=== PATIENT | male | born 1965 | race Caucasian/White ===

== ENCOUNTER 2024-01-13 20:13 | Inpatient (IN) ==
--- NOTE | 2024-01-13 21:13 | Emergency Department Note ---
Impression & Plan Lower gastrointestinal hemorrhage ADMIT ED Provider Note HPI: History obtained from patient. The patient is a 58-year-old gentleman who presents emergency department with chief complaint of GI bleeding. Patient states that he developed some GI bleeding at about 430 this morning. He states that it seemed to be persistent throughout most of the day and then seem to resolve about 4 hours prior to arrival. Patient states he felt generally weak and fatigued and at times felt dizzy and therefore he came to the ER to be assessed. Prior to my assessment the patient had a syncopal event in triage and therefore was brought back emergently to room B12 and marked as a priority. On my assessment the patient is again alert, he is hemodynamically stable on my initial evaluation although somewhat drowsy appearing. Patient is noted to be saturating well on room air, heart rate is within normal limits. Patient denies being on any anticoagulation. Of note, patient had a colonoscopy with polypectomy performed several weeks ago at this facility. ROS: - Per HPI Differential Diagnosis: Lower GI bleed secondary to internal or external hemorrhoids, lower GI bleed secondary to hemorrhagic biopsy site, ischemic colitis, perforated viscus, syncope secondary to arrhythmia, vasovagal event, acute coronary syndrome, amongst other potential pathologies. *Outpatient medications and allergy history reviewed. PE: General: Alert HEENT: Normocephalic, trachea midline Eyes: Extraocular eye movement is intact, no scleral erythema Pulmonary: Clear to auscultation bilaterally, no wheezing Cardio: Regular rate and rhythm GI: Abdomen is soft to palpation, rectal examination per shows evidence of external hemorrhoids with no obvious active bleeding, small amount of blood is surrounding the anus : No suprapubic tenderness MSK: No evidence of trauma or malformation of the extremities, no edema Skin: No evidence of rash Neuro: Alert, no focal deficits, equal bilateral sales and marketing professional strength, symmetrical facial movements are appreciated Psychiatric: Cooperative INDEPENDENT INTERPRETATIONS: residential monitor: (As interpreted by myself): - An order was placed for continuous cardiac monitoring - Patient was noted to be in sinus rhythm with a rate of 62 EKG: (As interpreted by myself): Rate: 62 Rhythm: Normal sinus rhythm Intervals: Within normal limits ST changes: No ST elevation Time: 2052 Interventions provided in ED: -IV fluid bolus, packed red blood cell transfusion Medical Decision Making: IV was established and lab work obtained, patient was placed on playground monitor. Lab work shows no leukocytosis, hemoglobin is 7.5 (patient states history of anemia around this range) platelet count is slightly reduced at 118, CMP shows BUN of 53 and creatinine of 3.35, patient also notes a history of chronic kidney disease and believes his creatinine is normally around this range as well. Glucose is elevated at 248, bilirubin is normal, there is no transaminitis, troponin is negative x 1. EKG per my interpretation shows normal sinus rhythm without any acute ischemic changes. CT imaging of the abdomen pelvis without contrast was obtained that shows evidence of fluid-filled colon and possible cystitis. Patient denies any recent dysuria, will send for UA. Rectal examination does show external hemorrhoids with a small amount of blood around the anus. Given the patient's syncopal event in triage and generalized dizziness with unclear baseline hemoglobin he was ordered packed red blood cells for transfusion here in the ED. I discussed the patient's presentation with on-call gastroenterology, Dr. Conteh, he is in agreement for consultation and will see the patient tomorrow morning given his hemodynamic stability at this time. Case was also discussed with the on-call hospitalist, Dr. Charles, and the patient was placed for admission in stable condition. Patient's blood pressure prior to admission is 120/72 and heart rate remains within normal limits. Patient was in agreement to this plan. Consultants/Discussions held with other healthcare providers: -Gastroenterology, Dr. Conteh -Hospitalist, Dr. Charles Disposition discussion held by myself with: -Patient and patient's at the bedside Diagnosis: 1. Lower GI bleed, acute 2. Syncopal event, acute 3. Chronic kidney disease 4. Anemia, unknown chronicity Disposition: Admission Anil Pagan DO Emergency Medicine Past Med/Surg History Problem List (Updated 01/14/24 @ 01:06 by Anil Pagan DO) Lower gastrointestinal hemorrhage (Acute) Colon cancer screening Medical History (Updated 01/14/24 @ 01:06 by Anil Pagan DO) History of blood transfusion (10/2023) early 10/2023 - low blood count/? details. Received blood transfusion. History of decreased renal function approx 10/2023 - reaction to ozempic. Resolved. History of COVID-19 (2021) Neuropathy HTN (hypertension) Hyperlipidemia Rosacea Acid reflux Type 2 diabetes mellitus Surgical History (Updated 12/23/23 @ 11:19 by Phill Parish RN) [place] teeth removed hx Social History Smoking Status: Never smoker Do You Dip or Chew Tobacco: No; Hx Substance Use: No Preferred Language: Portuguese Communication Ability: Effective County Agent Required: No Beliefs That Will Affect Care: None and Mandaeism Mandaeism Beliefs: Judaism Current Living Situation: Spouse Feels Safe at Home: Yes Assistive Devices: Glasses Allergies Allergies Allergy/AdvReac Type Severity Reaction Status Date / Time duloxetine AdvReac Intermediate SHAKES ALL Verified 01/13/24 22:50 OVER/DIZZINESS semaglutide [From Ozempic] AdvReac Unknown decreased Verified 01/13/24 22:50 kidney function Home Meds Home Medications Medication Instructions Recorded Confirmed aspirin 81 mg tablet,delayed 81 mg PO DAILY 12/23/23 01/13/24 release atenolol 50 mg tablet 50 mg PO QAM 12/23/23 01/13/24 empagliflozin 12.5 mg-metformin 1 tab PO BID 12/23/23 01/13/24 1,000 mg tablet losartan 50 mg-hydrochlorothiazide 1 tab PO QAM 12/23/23 01/13/24 12.5 mg tablet magnesium oxide 420 mg tablet 420 mg PO BID 12/23/23 01/13/24 minocycline 100 mg tablet 100 mg PO QAM 12/23/23 01/13/24 omeprazole 20 mg tablet,delayed 20 mg PO QAM 12/23/23 01/13/24 release rosuvastatin 40 mg tablet 40 mg PO QAM 12/23/23 01/13/24 gabapentin 300 mg capsule 300 mg PO TID 01/13/24 01/13/24 multivitamin 1 tab PO DAILY 01/13/24 01/13/24 omega 9-iuv-qit-fish oil 1,200 mg 1 cap PO QAM 01/13/24 01/13/24 (144 mg-216 mg) capsule (Fish Oil) Results & Data (ED) Vital Signs Vital Signs - 24 hr 01/13/24 20:21 01/13/24 21:09 01/13/24 21:15 Temperature 37 C Temperature Source Temporal Artery Scan Pulse Rate 67 61 61 Pulse Rate from SpO2 Sensor 63 Pulse Rhythm Regular Pulse Strength Normal Respiratory Rate 18 20 Respiratory Effort / Characteristics Non-Labored Spontaneous Respiratory Depth Normal Respiratory Pattern Regular Blood Pressure 99/62 L 104/58 L Blood Pressure Mean 74 73 Blood Pressure Position Sitting Pulse Oximetry 100 100 Oxygen Delivery Method Room Air Room Air Sepsis Recent Fever Within 48 Hours No Sepsis New/Unexplained Change in Mental Status N/A Sepsis Action Taken by Nursing No Action Required 01/13/24 21:30 01/13/24 21:48 01/13/24 22:00 Temperature Temperature Source Pulse Rate 61 66 70 Pulse Rate from SpO2 Sensor 61 65 69 Pulse Rhythm Pulse Strength Respiratory Rate 20 19 20 Respiratory Effort / Characteristics Respiratory Depth Respiratory Pattern Blood Pressure 116/62 119/74 110/60 Blood Pressure Mean 91 89 76 Blood Pressure Position Pulse Oximetry 100 100 100 Oxygen Delivery Method Room Air Room Air Room Air Sepsis Recent Fever Within 48 Hours Sepsis New/Unexplained Change in Mental Status Sepsis Action Taken by Nursing 01/13/24 22:03 01/13/24 22:40 01/13/24 22:40 Temperature 36.7 C Temperature Source Oral Pulse Rate 64 65 64 Pulse Rate from SpO2 Sensor 64 Pulse Rhythm Pulse Strength Respiratory Rate 21 18 18 Respiratory Effort / Characteristics Respiratory Depth Respiratory Pattern Blood Pressure 110/60 136/70 122/66 Blood Pressure Mean 76 92 84 Blood Pressure Position Pulse Oximetry 100 100 100 Oxygen Delivery Method Room Air Sepsis Recent Fever Within 48 Hours Sepsis New/Unexplained Change in Mental Status Sepsis Action Taken by Nursing 01/13/24 22:45 01/13/24 22:55 01/13/24 22:56 Temperature 37 C Temperature Source Oral Pulse Rate 63 65 Pulse Rate from SpO2 Sensor 64 Pulse Rhythm Pulse Strength Respiratory Rate 19 19 Respiratory Effort / Characteristics Respiratory Depth Respiratory Pattern Blood Pressure 122/66 127/71 127/71 Blood Pressure Mean 84 89 93 Blood Pressure Position Pulse Oximetry 100 100 Oxygen Delivery Method Room Air Sepsis Recent Fever Within 48 Hours Sepsis New/Unexplained Change in Mental Status Sepsis Action Taken by Nursing 01/13/24 22:56 01/13/24 23:00 01/13/24 23:10 Temperature 37 C Temperature Source Oral Pulse Rate 67 64 Pulse Rate from SpO2 Sensor 67 Pulse Rhythm Pulse Strength Respiratory Rate 24 19 Respiratory Effort / Characteristics Respiratory Depth Respiratory Pattern Blood Pressure 127/71 137/74 Blood Pressure Mean 93 95 Blood Pressure Position Pulse Oximetry 100 100 Oxygen Delivery Method Sepsis Recent Fever Within 48 Hours Sepsis New/Unexplained Change in Mental Status Sepsis Action Taken by Nursing 01/13/24 23:10 01/13/24 23:10 01/13/24 23:15 Temperature Temperature Source Pulse Rate Pulse Rate from SpO2 Sensor Pulse Rhythm Pulse Strength Respiratory Rate Respiratory Effort / Characteristics Respiratory Depth Respiratory Pattern Blood Pressure 137/74 137/74 121/61 Blood Pressure Mean 89 89 81 Blood Pressure Position Pulse Oximetry Oxygen Delivery Method Sepsis Recent Fever Within 48 Hours Sepsis New/Unexplained Change in Mental Status Sepsis Action Taken by Nursing 01/13/24 23:15 01/13/24 23:15 01/13/24 23:15 Temperature Temperature Source Pulse Rate 69 Pulse Rate from SpO2 Sensor 69 Pulse Rhythm Pulse Strength Respiratory Rate 17 Respiratory Effort / Characteristics Respiratory Depth Respiratory Pattern Blood Pressure 121/61 121/61 Blood Pressure Mean 81 81 Blood Pressure Position Pulse Oximetry 100 Oxygen Delivery Method Sepsis Recent Fever Within 48 Hours Sepsis New/Unexplained Change in Mental Status Sepsis Action Taken by Nursing 01/13/24 23:15 01/13/24 23:30 01/13/24 23:36 Temperature Temperature Source Pulse Rate 66 Pulse Rate from SpO2 Sensor 66 Pulse Rhythm Pulse Strength Respiratory Rate 21 Respiratory Effort / Characteristics Respiratory Depth Respiratory Pattern Blood Pressure 121/61 125/68 Blood Pressure Mean 81 98 Blood Pressure Position Pulse Oximetry 100 Oxygen Delivery Method Sepsis Recent Fever Within 48 Hours Sepsis New/Unexplained Change in Mental Status Sepsis Action Taken by Nursing 01/13/24 23:45 01/13/24 23:45 01/14/24 00:00 Temperature Temperature Source Pulse Rate 68 65 Pulse Rate from SpO2 Sensor Pulse Rhythm Pulse Strength Respiratory Rate 16 Respiratory Effort / Characteristics Respiratory Depth Respiratory Pattern Blood Pressure 129/70 129/70 122/72 Blood Pressure Mean 90 90 93 Blood Pressure Position Pulse Oximetry 100 100 Oxygen Delivery Method Sepsis Recent Fever Within 48 Hours Sepsis New/Unexplained Change in Mental Status Sepsis Action Taken by Nursing 01/14/24 00:21 01/14/24 00:27 01/14/24 00:30 Temperature Temperature Source Pulse Rate 63 65 Pulse Rate from SpO2 Sensor 64 66 Pulse Rhythm Pulse Strength Respiratory Rate 15 21 Respiratory Effort / Characteristics Respiratory Depth Respiratory Pattern Blood Pressure 127/68 Blood Pressure Mean 92 Blood Pressure Position Pulse Oximetry 100 100 Oxygen Delivery Method Sepsis Recent Fever Within 48 Hours Sepsis New/Unexplained Change in Mental Status Sepsis Action Taken by Nursing 01/14/24 00:45 01/14/24 00:45 01/14/24 00:45 Temperature Temperature Source Pulse Rate 67 Pulse Rate from SpO2 Sensor 67 Pulse Rhythm Pulse Strength Respiratory Rate 12 Respiratory Effort / Characteristics Respiratory Depth Respiratory Pattern Blood Pressure 135/71 135/71 Blood Pressure Mean 93 93 Blood Pressure Position Pulse Oximetry 100 Oxygen Delivery Method Sepsis Recent Fever Within 48 Hours Sepsis New/Unexplained Change in Mental Status Sepsis Action Taken by Nursing 01/14/24 00:54 01/14/24 01:00 01/14/24 01:00 Temperature Temperature Source Pulse Rate 66 Pulse Rate from SpO2 Sensor 65 Pulse Rhythm Pulse Strength Respiratory Rate 18 Respiratory Effort / Characteristics Respiratory Depth Respiratory Pattern Blood Pressure 120/72 120/72 Blood Pressure Mean 85 85 Blood Pressure Position Pulse Oximetry 100 Oxygen Delivery Method Sepsis Recent Fever Within 48 Hours Sepsis New/Unexplained Change in Mental Status Sepsis Action Taken by Nursing Laboratory Data 01/13/24 20:50 01/13/24 20:50 Lab Results 01/13/24 01/13/24 Range/Units 20:50 21:32 WBC 7.04 (4.8-10.8) K/ul RBC 2.12 L (4.70-6.10) M/uL Hgb 7.5 L (14.0-18.0) g/dl Hct 21.6 L (42.0-52.0) % MCV 101.9 H (80.0-100.0) fL MCH 35.4 H (25.0-34.0) pg MCHC 34.7 (32.0-36.0) g/dL RDW Std Deviation 53.1 H (36.4-46.3) fL RDW Coeff of Liss 14.3 (11.5-14.5) % Plt Count 118 L (130-400) K/uL MPV 10.1 (9.4-12.4) fL PT 12.0 (9.0-12.0) Seconds INR 1.1 (0.9-1.1) APTT 27 (21-31) Seconds PTT Ratio 1.0 Sodium 136 (136-145) mmol/L Potassium 3.6 (3.5-5.1) mmol/L Chloride 103 (98-107) mmol/L Carbon Dioxide 20 L (21-32) mmol/L Anion Gap 13 H (3-11) BUN 53 H (6-23) mg/dl Creatinine 3.35 H (0.6-1.4) mg/dl Est Cr Clr Drug Dosing 29.0 ml/min Est GFR ( Amer) 21.9 ml/min Est GFR (Non-Af Amer) 18.9 ml/min BUN/Creatinine Ratio 15.8 (10-20) Glucose 248 H (70-99(Fasting)) mg/dl Calcium 9.5 (8.6-10.3) mg/dl Total Bilirubin 0.4 (0.2-1.0) mg/dl AST 23 (13-39) U/L ALT 15 (7-52) U/L Alkaline Phosphatase 45 (34-104) U/L Troponin I High Sens 9.6 (0-20) pg/ml Total Protein 7.0 (6.0-8.3) gm/dl Albumin 4.2 (3.4-5.0) gm/dl Globulin 2.8 (2.5-4.0) gm/dl Albumin/Globulin Ratio 1.5 (0.9-2) Blood Type A Positive Blood Type Recheck A Positive Antibody Screen NEGATIVE Crossmatch See Detail Administered Medications Discontinued Medications Sodium Chloride (Nss) 1,000 mls @ 999 mls/hr IV .Q1H1M ONE Stop: 01/13/24 22:09 Last Infusion: 01/13/24 22:19 Dose: Infused Documented By: Admin: 01/13/24 21:15 Dose: 999 mls/hr Documented By: VALERIA Sodium Chloride (Nss) 1,000 mls @ 999 mls/hr IV .Q1H1M ONE Stop: 01/13/24 22:12 Last Infusion: 01/13/24 22:20 Dose: Infused Documented By: Admin: 01/13/24 21:15 Dose: 999 mls/hr Documented By: Imaging Data Radiologist's Impression: Abdomen/Pelvis CT 01/13/24 21:[address] WITHOUT CONTRAST CT DOSE: 1403.48 mGy.cm HISTORY: lower GIB, recent colonoscopy TECHNIQUE: Multiaxial CT images of the abdomen and pelvis were performed without contrast. A dose lowering technique was utilized adhering to the principles of ALARA. COMPARISON STUDY: None. FINDINGS: The lung bases are clear. No pneumoperitoneum. No pneumatosis. No acute fractures identified. The heart is mildly enlarged. Decreased attenuation within the blood pool suggestive of underlying anemia. Subtle nodular contour to the liver suggestive of early cirrhosis. No definite hepatic masses. The gallbladder, pancreas, spleen, and adrenal glands are unremarkable. A few prominent periportal lymph nodes which are likely reactive. Normal caliber abdominal aorta. No retroperitoneal lymphadenopathy. Mild bilateral perinephric edema. No renal or ureteral stones. No hydronephrosis. Tiny fat-containing umbilical hernia. No pelvic free fluid or pelvic lymphadenopathy. Mild thickening of the prostate gland. This may be due to chronic outlet obstruction from the mildly enlarged prostate gland. Colonic diverticulosis. No evidence for acute diverticulitis. Fluid-filled nondistended colon. No bowel wall thickening or obstruction. Normal appendix. IMPRESSION: 1. No bowel wall thickening or obstruction. 2. Colonic diverticulosis. No evidence for acute diverticulitis. 3. Fluid-filled colon. This could be due to the recent colonoscopy or directly illness. 4. Mild bladder wall thickening. This could be due to chronic outlet obstruction from the mildly enlarged prostate gland. Recommend correlation with urinalysis to exclude a cystitis. 5. Subtle nodular contour to the liver suggesting early cirrhosis. 6. Decreased attenuation within the bone pole suggestive of underlying anemia. ACT 112: Negative or not required by law. Electronically signed by: Tay Arguello M.D. 01/13/2024 11:19 PM Discharge Plan Visit Data Chief Complaint: Rectal Bleed Stated Complaint: RECTAL BLEED/2 WEEKS, LOW BP 89/50, WEAKNESS ED Provider: Anil Pagan Discharge Problem: Lower gastrointestinal hemorrhage Forms Stand Alone Forms: My [facility] Search Prescriptions Prescriptions: No Action multivitamin Tablet 1 tab PO DAILY gabapentin 300 mg Capsule 300 mg PO TID omega 1-cne-uli-fish oil [Fish Oil] 1,200 (144-216) mg Capsule 1 cap PO QAM magnesium oxide 420 mg Tablet 420 mg PO BID aspirin 81 mg Tablet,Delayed Release (Dr/Ec) 81 mg PO DAILY losartan-hydrochlorothiazide 50-12.5 mg Tablet 1 tab PO QAM atenolol 50 mg Tablet 50 mg PO QAM minocycline 100 mg Tablet 100 mg PO QAM rosuvastatin 40 mg Tablet 40 mg PO QAM omeprazole 20 mg Tablet,Delayed Release (Dr/Ec) 20 mg PO QAM empagliflozin-metformin 12.5-1,000 mg Tablet 1 tab PO BID Referrals Referrals: Harini Rivera, FARHANA [Primary Care Provider] -
[2024-01-13] MEDS: SODIUM CHLORIDE 0.9% 1,000 ML IV ONE ×2 (21:15)
[2024-01-13 21:17] LABS: Hematocrit (blood only) 21.6 % (42.0-52.0); Hemoglobin 7.5 g/dl (14.0-18.0); Mean Corpuscular Hemoglobin 35.4 pg (25.0-34.0); Mean Corpuscular Hgb Conc 34.7 g/dL (32.0-36.0); Mean Corpuscular Volume 101.9 fL (80.0-100.0); Mean Platelet Volume 10.1 fL (9.4-12.4); Platelet Count 118 K/uL (130-400); RDW Coefficient of Variation 14.3 % (11.5-14.5); RDW Standard Deviation 53.1 fL (36.4-46.3); Red Blood Count 2.12 M/uL (4.70-6.10); White Blood Count 7.04 K/ul (4.8-10.8)
[2024-01-13] MEDS ORDERED: SODIUM CHLORIDE 0.9% 250 ML IV PRN (21:19)
[2024-01-13 21:27] LABS: Albumin Globulin Ratio 1.5 (0.9-2); Albumin Level 4.2 gm/dl (3.4-5.0); BUN Creatinine Ratio 15.8 (10-20); Bilirubin,Total 0.4 mg/dl (0.2-1.0); Calcium 9.5 mg/dl (8.6-10.3); Est GFR (African American) 21.9 ml/min; Est GFR (Non-African American) 18.9 ml/min; Globulin 2.8 gm/dl (2.5-4.0); Potassium 3.6 mmol/L (3.5-5.1)
[2024-01-13 21:34] LABS: Troponin I High Sensitivity 9.6 pg/ml (0-20)
[2024-01-13 21:46] LABS: INR 1.1 (0.9-1.1); Partial Thromboplastin Time 27 Seconds (21-31)
--- NOTE | 2024-01-13 23:21 | CT Scan Report ---
ABDOMEN AND PELVIS CT WITHOUT CONTRAST CT DOSE: 1403.48 mGy.cm HISTORY: lower GIB, recent colonoscopy TECHNIQUE: Multiaxial CT images of the abdomen and pelvis were performed without contrast. A dose lo wering technique was utilized adhering to the principles of ALARA. COMPARISON STUDY: None. FINDINGS: The lung bases are clear. No pneumoperitoneum. No pneumatosis. No acute fractures identifie d. The heart is mildly enlarged. Decreased attenuation within the blood pool suggestive of underlying anemia. Subtle nodular contour to the liver suggestive of early cirrhosis. No definite hepatic aldo s. The gallbladder, pancreas, spleen, and adrenal glands are unremarkable. A few prominent periportal lymph nodes which are likely reactive. Normal caliber abdominal aorta. No retroperitoneal lymphadeno le. Mild bilateral perinephric edema. No renal or ureteral stones. No hydronephrosis. Tiny fat-con taining umbilical hernia. No pelvic free fluid or pelvic lymphadenopathy. Mild thickening of the pros verdugo gland. This may be due to chronic outlet obstruction from the mildly enlarged prostate gland. Co lonic diverticulosis. No evidence for acute diverticulitis. Fluid-filled nondistended colon. No bowel wall thickening or obstruction. Normal appendix. IMPRESSION: 1. No bowel wall thickening or obstruction. 2. Colonic diverticulosis. No evidence for acute diverticulitis. 3. Fluid-filled colon. This could be due to the recent colonoscopy or directly illness. 4. Mild bladder wall thickening. This could be due to chronic outlet obstruction from the mildly enla rged prostate gland. Recommend correlation with urinalysis to exclude a cystitis. 5. Subtle nodular contour to the liver suggesting early cirrhosis. 6. Decreased attenuation within the bone pole suggestive of underlying anemia. ACT 112: Negative or not required by law. Electronically signed by: Tay Arguello M.D. 01/13/2024 11:19 PM
[2024-01-14] MEDS ORDERED: ONDANSETRON INJ 2 MG/ML 2 ML VIAL IV PRN (00:49)
--- NOTE | 2024-01-14 00:58 | History & Physical Report ---
Date of Service January 14, 2024 Assessment & Plan (1) Syncope and collapse: (2) Anemia requiring transfusions: (3) History of blood transfusion: (4) S/P colon polypectomy: (5) Lower gastrointestinal hemorrhage: (6) Thrombocytopenia: (7) Kidney disease, chronic, stage IV (GFR 15-29 ml/min): (8) Colon polyps: (9) HTN (hypertension): (10) Type 2 diabetes mellitus: (11) Hyperlipidemia: (12) Neuropathy: Plan Symptomatic anemia requiring transfusion/syncope and collapse/status post colon polypectomy/bright red blood per rectum/cirrhosis- Patient was initially noted to have hemoglobin of 8 on 11/05/2023, for which she was transfused unknown while volume of blood at an outside hospital. He reports that he did have follow-up laboratories done, but they are not available at this time. The patient did undergo a colonoscopy on 12/29/2023, where there was 6 3-15 mm polyps removed, and 1 35 mm polyp removed. Sigmoid diverticulosis was also noted at that time as well. Patient had resumed aspirin since that time, and he continues taking aspirin 81 mg daily. Which will be held Pantoprazole [address] scan abdomen and pelvis notes probable early cirrhosis N.p.o. except essential medications Consult gastroenterology Thrombocytopenia- Platelets on 11/05/2023 were 81, with entrance platelets today 118. Will give DDAVP for platelet reversal, and follow, as patient has only been on aspirin for primary prevention. CKD stage IV- Patient reports that he was told he had lost significant kidney function due to being on semaglutide/Ozempic. Creatinine on 11/05/2023 was 3.8. Creatinine today is 3.35. This may also be contributing to his anemia He presently is on empagliflozin/metformin, and losartan/HCTZ, all of which will be held He will be transfused 2 units PRBCs as noted, and will place on NSS at 80 mL/h x 1 L Follow H&H every 4 hours Consult nephrology Hypertension- Hold aspirin and losartan-HCTZ Hold atenolol due to relatively low blood pressure Diabetes mellitus- Holding empagliflozin/metformin as noted Placed on Accu-Cheks with NovoLog SSI Peripheral neuropathy- Noted by patient to be severe, will continue gabapentin 3 mg p.o. 3 times daily BPH with LUTS- CT of abdomen/pelvis shows findings consistent with BPH with LUTS, with chronic outlet obstruction May do a trial of tamsulosin, when is medically stable History of Present Illness Chief Complaint: The patient presents to the emergency department with complaint of rectal bleeding that began around 4:30 in the morning on 01/12, and occurred again later on in the day. This caused him to come to the emergency department for assessment. While in the emergency department, patient had a syncopal episode while in the waiting room, where family reports they had said something to him and he does not member and think about it. He did not have loss of bowel or bladder control at that time. Primary Care Provider: Harini Rivera PA-C The patient is a 58-year-old male with a past medical history including hypertension, diabetes mellitus, peripheral neuropathy, hyperlipidemia, GERD, and kidney disease. He presents to the emergency department due to concerns regarding rectal bleeding that occurred initially around 4:30 in the morning of 01/12, and occurred again later on in the day, which prompted him to come to ED for assessment. While in ED, he had a syncopal episode in the waiting room. He was then brought in for evaluation for admission, was found that he had a hemoglobin of 7.5, and is being transfused 2 units PRBCs by the ED at this time. Allergies Allergy/AdvReac Type Severity Reaction Status Date / Time duloxetine AdvReac Intermediate SHAKES ALL Verified 01/13/24 22:50 OVER/DIZZINESS semaglutide [From Ozempic] AdvReac Unknown decreased Verified 01/13/24 22:50 kidney function Home Medications Medication Instructions Recorded Confirmed Type aspirin 81 mg tablet,delayed 81 mg PO DAILY 12/23/23 01/13/24 History release atenolol 50 mg tablet 50 mg PO QAM 12/23/23 01/13/24 History empagliflozin 12.5 mg-metformin 1 tab PO BID 12/23/23 01/13/24 History 1,000 mg tablet losartan 50 mg-hydrochlorothiazide 1 tab PO QAM 12/23/23 01/13/24 History 12.5 mg tablet magnesium oxide 420 mg tablet 420 mg PO BID 12/23/23 01/13/24 History minocycline 100 mg tablet 100 mg PO QAM 12/23/23 01/13/24 History omeprazole 20 mg tablet,delayed 20 mg PO QAM 12/23/23 01/13/24 History release rosuvastatin 40 mg tablet 40 mg PO QAM 12/23/23 01/13/24 History gabapentin 300 mg capsule 300 mg PO TID 01/13/24 01/13/24 History multivitamin 1 tab PO DAILY 01/13/24 01/13/24 History omega 5-jic-bps-fish oil 1,200 mg 1 cap PO QAM 01/13/24 01/13/24 History (144 mg-216 mg) capsule (Fish Oil) Past Med/Surg History Problem List (Updated 01/14/24 @ 03:48 by Vish Charles MD) S/P colon polypectomy Syncope and collapse Anemia requiring transfusions Colon polyps HTN (hypertension) Thrombocytopenia Type 2 diabetes mellitus Hyperlipidemia Neuropathy History of blood transfusion (10/2023) early 10/2023 - low blood count/? details. Received blood transfusion. Kidney disease, chronic, stage IV (GFR 15-29 ml/min) Lower gastrointestinal hemorrhage (Acute) Colon cancer screening Medical History (Updated 01/14/24 @ 03:48 by Vish Charles MD) History of decreased renal function approx 10/2023 - reaction to ozempic. Resolved. History of COVID-19 (2021) Rosacea Acid reflux Surgical History (Updated 01/14/24 @ 03:49 by Vish Charles MD) [place] teeth removed hx Social History Smoking Status: Never smoker Do You Dip or Chew Tobacco: No; Hx Substance Use: No Preferred Language: Kazakh Communication Ability: Effective Health And Nutrition Specialist Required: No Beliefs That Will Affect Care: None and Methodist Methodist Beliefs: Adventism Current Living Situation: Spouse Feels Safe at Home: Yes Assistive Devices: Glasses Review of Systems Review of Systems: The patient denies chest pain, palpitations, shortness of breath, dyspnea on exertion, cough, lower extremity swelling, sore throat, fevers, chills, sweats, nausea, vomiting, diarrhea , constipation, blood in urine, lightheadedness, dizziness, headache, rash, imbalance, focal weakness, numbness or tingling in arms or legs, generalized arthralgias or myalgias, back or neck pain, or night sweats. The review of systems is otherwise negative other than for that already noted above, and at least 10 systems have been reviewed. Physical Exam Physical Exam: The patient is awake, alert and oriented 3, well developed and well nourished, normocephalic and atraumatic, lying in bed and in no acute distress. HEENT--PERRL, EOMI, mucous membranes and oropharynx mildly dry. Neck--supple. No JVD. No bruits. Thyroid normal, trachea midline, no adenopathy. Heart--normal S1 and S2. No murmurs, rubs or gallops. Lungs--clear bilaterally, no respiratory distress, no accessory muscle use. Abdomen--normal bowel sounds and soft. Nontender. Nondistended. Obese Extremities--no cyanosis or clubbing. No edema. Dermatologic--normal skin turgor, normal color, no abnormal lymph nodes, no rash. Neurologic--cranial nerves II through XII grossly intact. Rheumatologic--normal range of motion. Psychiatric--normal affect. Results & Data Results & Data Vital Signs (Past 12 Hours) Vital Signs Temp Pulse Resp BP Pulse Ox O2 Del Method 01/14/24 00:00 65 16 122/72 100 01/13/24 23:45 68 129/70 100 01/13/24 23:45 129/70 01/13/24 23:36 66 21 01/13/24 23:30 125/68 01/13/24 23:15 121/61 01/13/24 23:15 121/61 01/13/24 23:15 69 17 100 01/13/24 23:15 121/61 01/13/24 23:15 121/61 01/13/24 23:10 137/74 01/13/24 23:10 137/74 01/13/24 23:10 37 C 64 19 137/74 01/13/24 23:00 67 24 01/13/24 22:56 127/71 01/13/24 22:56 127/71 01/13/24 22:55 37 C 65 19 127/71 01/13/24 22:45 63 19 122/66 100 Room Air 01/13/24 22:40 64 18 122/66 100 01/13/24 22:40 36.7 C 65 18 136/70 100 01/13/24 22:03 64 21 110/60 100 Room Air 01/13/24 22:00 70 20 110/60 100 Room Air 01/13/24 21:48 66 19 119/74 100 Room Air 01/13/24 21:30 61 20 116/62 100 Room Air 01/13/24 21:15 61 01/13/24 21:09 61 20 104/58 L 100 Room Air 01/13/24 20:21 37 C 67 18 99/62 L 100 Room Air Laboratory Results Laboratory Results WBC 7.04 K/ul (4.8-10.8) 01/13/24 20:50 RBC 2.12 M/uL (4.70-6.10) L 01/13/24 20:50 Hgb 7.5 g/dl (14.0-18.0) L 01/13/24 20:50 Hct 21.6 % (42.0-52.0) L 01/13/24 20:50 MCV 101.9 fL (80.0-100.0) H 01/13/24 20:50 MCH 35.4 pg (25.0-34.0) H 01/13/24 20:50 MCHC 34.7 g/dL (32.0-36.0) 01/13/24 20:50 RDW Std Deviation 53.1 fL (36.4-46.3) H 01/13/24 20:50 RDW Coeff of Liss 14.3 % (11.5-14.5) 01/13/24 20:50 Plt Count 118 K/uL (130-400) L 01/13/24 20:50 MPV 10.1 fL (9.4-12.4) 01/13/24 20:50 PT 12.0 Seconds (9.0-12.0) 01/13/24 20:50 INR 1.1 (0.9-1.1) 01/13/24 20:50 APTT 27 Seconds (21-31) 01/13/24 20:50 PTT Ratio 1.0 01/13/24 20:50 Sodium 136 mmol/L (136-145) 01/13/24 20:50 Potassium 3.6 mmol/L (3.5-5.1) 01/13/24 20:50 Chloride 103 mmol/L (98-107) 01/13/24 20:50 Carbon Dioxide 20 mmol/L (21-32) L 01/13/24 20:50 Anion Gap 13 (3-11) H 01/13/24 20:50 BUN 53 mg/dl (6-23) H 01/13/24 20:50 Creatinine 3.35 mg/dl (0.6-1.4) H 01/13/24 20:50 Est Cr Clr Drug Dosing 29.0 ml/min 01/13/24 20:50 Est GFR ( Amer) 21.9 ml/min 01/13/24 20:50 Est GFR (Non-Af Amer) 18.9 ml/min 01/13/24 20:50 BUN/Creatinine Ratio 15.8 (10-20) 01/13/24 20:50 Glucose 248 mg/dl (70-99(Fasting)) H 01/13/24 20:50 Calcium 9.5 mg/dl (8.6-10.3) 01/13/24 20:50 Total Bilirubin 0.4 mg/dl (0.2-1.0) 01/13/24 20:50 AST 23 U/L (13-39) 01/13/24 20:50 ALT 15 U/L (7-52) 01/13/24 20:50 Alkaline Phosphatase 45 U/L (34-104) 01/13/24 20:50 Troponin I High Sens 9.6 pg/ml (0-20) 01/13/24 20:50 Total Protein 7.0 gm/dl (6.0-8.3) 01/13/24 20:50 Albumin 4.2 gm/dl (3.4-5.0) 01/13/24 20:50 Globulin 2.8 gm/dl (2.5-4.0) 01/13/24 20:50 Albumin/Globulin Ratio 1.5 (0.9-2) 01/13/24 20:50 Blood Type A Positive 01/13/24 20:50 Blood Type Recheck A Positive 01/13/24 21:32 Antibody Screen NEGATIVE 01/13/24 20:50 Crossmatch See Detail 01/13/24 20:50 Impressions Abdomen/Pelvis CT 01/13/24 21:[address] WITHOUT CONTRAST CT DOSE: 1403.48 mGy.cm HISTORY: lower GIB, recent colonoscopy TECHNIQUE: Multiaxial CT images of the abdomen and pelvis were performed without contrast. A dose lowering technique was utilized adhering to the principles of ALARA. COMPARISON STUDY: None. FINDINGS: The lung bases are clear. No pneumoperitoneum. No pneumatosis. No acute fractures identified. The heart is mildly enlarged. Decreased attenuation within the blood pool suggestive of underlying anemia. Subtle nodular contour to the liver suggestive of early cirrhosis. No definite hepatic masses. The gallbladder, pancreas, spleen, and adrenal glands are unremarkable. A few prominent periportal lymph nodes which are likely reactive. Normal caliber ab dominal aorta. No retroperitoneal lymphadenopathy. Mild bilateral perinephric edema. No renal or ureteral stones. No hydronephrosis. Tiny fat-containing umbilical hernia. No pelvic free fluid or pelvic lymphadenopathy. Mild thickening of the prostate gland. This may be due to chronic outlet obstruction from the mildly enlarged prostate gland. Colonic diverticulosis. No evidence for acute diverticulitis. Fluid-filled nondistended colon. No bowel wall thickening or obstruction. Normal appendix. IMPRESSION: 1. No bowel wall thickening or obstruction. 2. Colonic diverticulosis. No evidence for acute diverticulitis. 3. Fluid-filled colon. This could be due to the recent colonoscopy or directly illness. 4. Mild bladder wall thickening. This could be due to chronic outlet obstruction from the mildly enlarged prostate gland. Recommend correlation with urinalysis to exclude a cystitis. 5. Subtle nodular contour to the liver suggesting early cirrhosis. 6. Decreased attenuation within the bone pole suggestive of underlying anemia. ACT 112: Negative or not required by law. Electronically signed by: Tay Arguello M.D. 01/13/2024 11:19 PM Code Status & VTE Plan Code Status Full code VTE Prophylaxis Plan VTE Prophylaxis will be ordered: Yes PG Care Time/CCT Total # of Minutes Spent Total Time Spent with Patient: Total time spent is greater than 50% in coordination of care (as documented) at patient's floor/unit and/or counseling patient: Coding Level of Care Code 76261 INT INP/OBS CARE 3/75MIN Diagnoses Syncope and collapse R55 Anemia requiring transfusions D64.9 History of blood transfusion Z92.89 S/P colon polypectomy Z98.890; Z86.010 Lower gastrointestinal hemorrhage K92.2 Thrombocytopenia D69.6 Kidney disease, chronic, stage IV (GFR 15-29 ml/min) N18.4 Colon polyps K63.5 HTN (hypertension) I10 Type 2 diabetes mellitus E11.9 Hyperlipidemia E78.5 Neuropathy G62.9
[2024-01-14] MEDS: GABAPENTIN 300 MG CAP PO STA (01:16)
[2024-01-14] MEDS: DESMOPRESSIN ACETATE 40 MCG in SODIUM CHLORIDE 0.9% 50 ML IV STA (01:17)
[2024-01-14] MEDS: PANTOprazole 40 MG in SYRINGE 0 ML IV ONE (01:17)
[2024-01-14] MEDS: SODIUM CHLORIDE 0.9% 1,000 ML IV SCH (01:22)
[2024-01-14] MEDS ORDERED: GLUCOSE 40% GEL 15 GM TUBE PO PRN (01:29)
[2024-01-14] MEDS ORDERED: CARBOHYDRATES FOR HYPOGLYCEMIA PO PRN (01:29)
[2024-01-14] MEDS ORDERED: GLUCAGON FOR INJ 1 MG VIAL SQ PRN (01:29)
[2024-01-14] MEDS ORDERED: GLUCOSE 10 TAB/TUBE PO PRN (01:29)
[2024-01-14] MEDS ORDERED: DEXTROSE 50% 50 ML SYRINGE IV PRN (01:29)
[2024-01-14] MEDS ORDERED: ACETAMINOPHEN 325 MG TAB PO PRN (01:29)
--- NOTE | 2024-01-14 04:02 | Billing Data ---
Date of Service January 14, 2024 Coding Level of Care Code PROLONG IP/OBS E/M EA 15 MIN (25 - SIGNIFICANT, SEPARATELY IDENTIFIABLE ) Time Spent (min) 60 Comment A total of 60 minutes of ongoing care provided due to multiple complicated medical issues
[2024-01-14 05:53] LABS: Hemoglobin 6.5 g/dl (14.0-18.0)
[2024-01-14] MEDS: INSULIN ASPART PER UNIT CHARGE SC SCH (06:15)
[2024-01-14] MEDS ORDERED: SODIUM CHLORIDE 0.9% 250 ML IV PRN ×2 (06:42→06:44)
--- NOTE | 2024-01-14 07:56 | Hospitalist Progress Note ---
Date of Service January 14, 2024 Assessment & Plan (1) Anemia requiring transfusions: Plan: Symptomatic anemia requiring transfusion, pt presented with syncope and collapse/status post colon polypectomy bright red blood per rectum suggestion of cirrhosis on Ct Abdomen pelvis - Patient was initially noted to have hemoglobin of 8 on 11/05/2023, for which he was transfused unknown while volume of blood at an outside hospital. Postprocedural lower GI bleed with acute blood loss anemia due to polypectomies The patient did undergo a colonoscopy on 12/29/2023, where there was 6 3-15 mm polyps removed, and 1 35 mm polyp removed. Sigmoid diverticulosis was also noted at that time as well. Patient had resumed aspirin 81 mg daily since that time, no on hold Pantoprazole [address] scan abdomen and pelvis notes probable early cirrhosis N.p.o. except essential medications Consult gastroenterology Thrombocytopenia- Platelets on 11/05/2023 were 81, with entrance platelets today 118. given DDAVP for platelet reversal, and follow, as patient has only been on aspirin for primary prevention. (2) Kidney disease, chronic, stage IV (GFR 15-29 ml/min): Plan: CKD stage IV- Patient reports that he was told he had lost significant kidney function due to being on semaglutide/Ozempic. Creatinine on 11/05/2023 was 3.8. admission Creatinine 3.35. ckd may also be contributing to his anemia He presently is on empagliflozin/metformin, and losartan/HCTZ, all of which will be held He will be transfused 2 units PRBCs as noted, and will place on NSS at 80 mL/h x 1 L Consult nephrology (3) Type 2 diabetes mellitus: Plan: Diabetes mellitus- Holding empagliflozin/metformin as noted Placed on Accu-Cheks with NovoLog SSI neuropathy likely diabetic continues on gabapentin (4) HTN (hypertension): Plan: Holding losartan-HCTZ due to CKD Hold atenolol due to relatively low blood pressure (5) BPH (benign prostatic hyperplasia): Plan: CT of abdomen/pelvis shows findings consistent with BPH with LUTS, with chronic outlet obstruction May do a trial of tamsulosin, when is medically stable Admission and Anticipated Discharge Date Admission Date: January 14, 2024 Subjective Patient seen in the emergency room in the company of his . Consultation with GI has not been undertaken. He was being transfused with packed red blood cells at this time. Physical Exam Physical Exam: Patient still appears pale he is in no distress he said he had profuse bright red blood per rectum. He has no abdominal discharge comfort at this time His abdomen exam is with normal active bowel sounds soft and nontender Results & Data Results & Data Vital Signs (Past 12 Hours) Vital Signs Temp Pulse Resp BP Pulse Ox Pulse Ox O2 Del Method 01/14/24 07:45 98.4 F 68 117/70 100 01/14/24 07:23 98.4 F 67 16 99/51 L 100 01/14/24 07:13 69 01/14/24 01:30 66 17 125/78 100 01/14/24 01:29 100 01/14/24 01:00 66 18 120/72 100 01/14/24 01:00 120/72 01/14/24 01:00 120/72 01/14/24 00:54 66 18 100 01/14/24 00:45 135/71 01/14/24 00:45 135/71 01/14/24 00:45 67 12 100 01/14/24 00:30 127/68 01/14/24 00:27 65 21 100 01/14/24 00:21 63 15 100 01/14/24 00:00 65 16 122/72 100 01/13/24 23:45 68 129/70 100 01/13/24 23:45 129/70 01/13/24 23:36 66 21 100 01/13/24 23:30 125/68 01/13/24 23:15 121/61 01/13/24 23:15 121/61 01/13/24 23:15 69 17 100 01/13/24 23:15 121/61 01/13/24 23:15 121/61 01/13/24 23:10 137/74 01/13/24 23:10 137/74 01/13/24 23:10 98.6 F 64 19 137/74 100 01/13/24 23:00 67 24 100 01/13/24 22:56 127/71 01/13/24 22:56 127/71 01/13/24 22:55 98.6 F 65 19 127/71 100 01/13/24 22:45 63 19 122/66 100 Room Air 01/13/24 22:40 64 18 122/66 100 01/13/24 22:40 98.1 F 65 18 136/70 100 01/13/24 22:03 64 21 110/60 100 Room Air 01/13/24 22:00 70 20 110/60 100 Room Air 01/13/24 21:48 66 19 119/74 100 Room Air 01/13/24 21:30 61 20 116/62 100 Room Air 01/13/24 21:15 61 01/13/24 21:09 61 20 104/58 L 100 Room Air 01/13/24 20:21 98.6 F 67 18 99/62 L 100 Room Air O2 Del Method 01/14/24 07:45 01/14/24 07:23 01/14/24 07:13 01/14/24 01:30 01/14/24 01:29 Room Air 01/14/24 01:00 01/14/24 01:00 01/14/24 01:00 01/14/24 00:54 01/14/24 00:45 01/14/24 00:45 01/14/24 00:45 01/14/24 00:30 01/14/24 00:27 01/14/24 00:21 01/14/24 00:00 01/13/24 23:45 01/13/24 23:45 01/13/24 23:36 01/13/24 23:30 01/13/24 23:15 01/13/24 23:15 01/13/24 23:15 01/13/24 23:15 01/13/24 23:15 01/13/24 23:10 01/13/24 23:10 01/13/24 23:10 01/13/24 23:00 01/13/24 22:56 01/13/24 22:56 01/13/24 22:55 01/13/24 22:45 01/13/24 22:40 01/13/24 22:40 01/13/24 22:03 01/13/24 22:00 01/13/24 21:48 01/13/24 21:30 01/13/24 21:15 01/13/24 21:09 01/13/24 20:21 Laboratory Results Reviewed CBC reviewed chemistry PG Care Time/CCT Total # of Minutes Spent Total Time Spent with Patient: Total time spent is greater than 50% in coordination of care (as documented) at patient's floor/unit and/or counseling patient: Coding Level of Care Code None Diagnoses Anemia requiring transfusions D64.9 Kidney disease, chronic, stage IV (GFR 15-29 ml/min) N18.4 Type 2 diabetes mellitus E11.9 HTN (hypertension) I10 BPH (benign prostatic hyperplasia) N40.0
[2024-01-14 08:08] LABS: Estimated Average Glucose 151 mg/dl; Hemoglobin A1C 6.9 % (4.5-5.6)
--- NOTE | 2024-01-14 08:46 | Nephrology Consultation ---
Date of Consultation January 14, 2024 Assessment & Plan (1) SHAMIKA (acute kidney injury): Hemodynamically mediated. Creatinine improving with supportive care (IVF and PRBC transfusion support). Electrolytes and volume status acceptable. Jimenez is non-oliguric. There is no emergent indication for DIRECTOR OF CONSERVATION. Losartan, HCTZ, metformin, empagliflozin, and semaglutide have appropriately been held. Rosuvastatin also held (if restarted, max recommended dose at this time would be 10 mg). Document strict I/O's. Repeat metabolic profile tomorrow AM. (2) Kidney disease, chronic, stage IV (GFR 15-29 ml/min): CKD III-IV by history. Followed by nephrology through the [place]. Records from the [facility] (recent labs from November) requested. Baseline creatinine unknown. CKD attributed to DKD. (3) Type 2 diabetes mellitus: Metformin, empagliflozin, and semaglutide held. SSI protocol introduced. (4) HTN (hypertension): Hypotension due to decreased EAV. HCTZ and losartan held. (5) Anemia requiring transfusions: s/p 2 unit PRBC support. (6) Thrombocytopenia: (7) Lower gastrointestinal hemorrhage: Colonoscopy planned for tomorrow per Dr. Benavidez. Recent polypectomy. (8) BPH (benign prostatic hyperplasia): No hydronephrosis or evidence of obstruction on imaging. History of Present Illness Reason for Consultation: CKD/semaglutide hx, GI bleed, low plts ,syncope Requesting Physician: Ethan Beckett MD Attending Physician: Ethan Beckett MD History of Present Illness Jimenez Nunez is a 58 year-old male with diabetes mellitus II, hypertension, hyperlipidemia, neuropathy, GERD, BPH, thrombocytopenia, and CKD. Serum creatinine in October measured at 3.8 mg/dL. Jimenez describes a recent episode of SHAMIKA attributed to GLP1a therapy. He follows with nephrology through the [place]. He reports a history of CKD III-IV. Blood work recently obtained in November reportedly demonstrating slightly improved creatinine (he believes eGFR ~51%). Records have been requested. Recent imaging evidence of cirrhosis noted. Kidney with mild cortical atrophy but otherwise normal in appearance. In October, Jimenez received transfusion support for ORI. Jimenez underwent colonoscopy for iron deficiency anemia on December 28. Multiple polyps were removed. The evaluation was also notable for sigmoid diverticulosis. He presented to the ER at [facility] yesterday with bright red blood per rectum. Symptoms started early in the morning on January 12. He then suffered a syncopal episode in the waiting room. Hemoglobin was 7.5 on presentation. 2 units of PRBC transfusion support were provided overnight. IV NSS is now infusion. Serum creatinine on presentation measured at 3.35 mg/dL. Creatinine now 2.85 mg/dL. Electrolytes are normal. HCTZ, losartan, empagliflozin, and semaglutide have been held. The patient was seen and evaluated in the ER this morning with his at the bedside. I discussed the recent history and plan of care with Dr. Beckett. CT abdomen and pelvis demonstrates the kidneys to be unobstructed. Cortical atrophy is symmetric and consistent with CKD. Allergies Allergy/AdvReac Type Severity Reaction Status Date / Time duloxetine AdvReac Intermediate SHAKES ALL Verified 01/13/24 22:50 OVER/DIZZINESS semaglutide [From Ozempic] AdvReac Unknown decreased Verified 01/13/24 22:50 kidney function Home Medications Medication Instructions Recorded Confirmed Type aspirin 81 mg tablet,delayed 81 mg PO DAILY 12/23/23 01/13/24 History release atenolol 50 mg tablet 50 mg PO QAM 12/23/23 01/13/24 History empagliflozin 12.5 mg-metformin 1 tab PO BID 12/23/23 01/13/24 History 1,000 mg tablet losartan 50 mg-hydrochlorothiazide 1 tab PO QAM 12/23/23 01/13/24 History 12.5 mg tablet magnesium oxide 420 mg tablet 420 mg PO BID 12/23/23 01/13/24 History minocycline 100 mg tablet 100 mg PO QAM 12/23/23 01/13/24 History omeprazole 20 mg tablet,delayed 20 mg PO QAM 12/23/23 01/13/24 History release rosuvastatin 40 mg tablet 40 mg PO QAM 12/23/23 01/13/24 History gabapentin 300 mg capsule 300 mg PO TID 01/13/24 01/13/24 History multivitamin 1 tab PO DAILY 01/13/24 01/13/24 History omega 4-qpq-lny-fish oil 1,200 mg 1 cap PO QAM 01/13/24 01/13/24 History (144 mg-216 mg) capsule (Fish Oil) Patient History Medical History History of decreased renal function approx 10/2023 - reaction to ozempic. Resolved. 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 Beliefs That Will Affect Care: None and Muslim Muslim Beliefs: Zoroastrian Current Living Situation: Spouse Feels Safe at Home: Yes Assistive Devices: Glasses Review of Systems Review of Systems: All systems reviewed & are unremarkable except as noted in HPI & below Gastrointestinal: + diarrhea/loose stools and + blood in s tools; no abdominal pain Physical Exam Constitutional: well developed; no acute distress Eyes: no scleral abnormality and no corneal abnormality ENMT: Mouth: no oral mucosal abnormality and oral mucous membranes not dry Neck: normal visual inspection and trachea midline Respiratory: normal respiratory effort Auscultation: lungs clear to auscultation bilaterally Cardiovascular: Rate/Rhythm: regular rate Heart Sounds: normal S1 and normal S2 Extremities: no edema Musculoskeletal: Extremities: no cyanosis and no clubbing Skin: normal turgor; no lesions Neurologic: Motor/Sensory: no tremor and no asterixis Psychiatric: Orientation: alert and oriented x 3 Results & Data Vital Signs (Past 12 Hours) Vital Signs Temp Pulse Resp BP Pulse Ox Pulse Ox O2 Del Method 01/14/24 08:30 37 C 67 112/66 01/14/24 08:00 37.0 C 67 111/67 01/14/24 07:45 36.9 C 68 117/70 100 01/14/24 07:23 36.9 C 67 16 99/51 L 100 01/14/24 07:13 69 01/14/24 01:30 66 17 125/78 100 01/14/24 01:29 100 01/14/24 01:00 66 18 120/72 100 01/14/24 01:00 120/72 01/14/24 01:00 120/72 01/14/24 00:54 66 18 100 01/14/24 00:45 135/71 01/14/24 00:45 135/71 01/14/24 00:45 67 12 100 01/14/24 00:30 127/68 01/14/24 00:27 65 21 100 01/14/24 00:21 63 15 100 01/14/24 00:00 65 16 122/72 100 01/13/24 23:45 68 129/70 100 01/13/24 23:45 129/70 01/13/24 23:36 66 21 100 01/13/24 23:30 125/68 01/13/24 23:15 121/61 01/13/24 23:15 121/61 01/13/24 23:15 69 17 100 01/13/24 23:15 121/61 01/13/24 23:15 121/61 01/13/24 23:10 137/74 01/13/24 23:10 137/74 01/13/24 23:10 37 C 64 19 137/74 100 01/13/24 23:00 67 24 100 01/13/24 22:56 127/71 01/13/24 22:56 127/71 01/13/24 22:55 37 C 65 19 127/71 100 01/13/24 22:45 63 19 122/66 100 Room Air 01/13/24 22:40 64 18 122/66 100 01/13/24 22:40 36.7 C 65 18 136/70 100 01/13/24 22:03 64 21 110/60 100 Room Air 01/13/24 22:00 70 20 110/60 100 Room Air 01/13/24 21:48 66 19 119/74 100 Room Air 01/13/24 21:30 61 20 116/62 100 Room Air 01/13/24 21:15 61 01/13/24 21:09 61 20 104/58 L 100 Room Air O2 Del Method 01/14/24 08:30 01/14/24 08:00 01/14/24 07:45 01/14/24 07:23 01/14/24 07:13 01/14/24 01:30 01/14/24 01:29 Room Air 01/14/24 01:00 01/14/24 01:00 01/14/24 01:00 01/14/24 00:54 01/14/24 00:45 01/14/24 00:45 01/14/24 00:45 01/14/24 00:30 01/14/24 00:27 01/14/24 00:21 01/14/24 00:00 01/13/24 23:45 01/13/24 23:45 01/13/24 23:36 01/13/24 23:30 01/13/24 23:15 01/13/24 23:15 01/13/24 23:15 01/13/24 23:15 01/13/24 23:15 01/13/24 23:10 01/13/24 23:10 01/13/24 23:10 01/13/24 23:00 01/13/24 22:56 01/13/24 22:56 01/13/24 22:55 01/13/24 22:45 01/13/24 22:40 01/13/24 22:40 01/13/24 22:03 01/13/24 22:00 01/13/24 21:48 01/13/24 21:30 01/13/24 21:15 01/13/24 21:09 Laboratory Results Laboratory Results - last 24 hr 01/13/24 01/13/24 01/14/24 20:50 21:32 04:38 WBC 7.04 RBC 2.12 L Hgb 7.5 L 6.5 L* Hct 21.6 L 19.0 L* MCV 101.9 H MCH 35.4 H MCHC 34.7 RDW Std Deviation 53.1 H RDW Coeff of Liss 14.3 Plt Count 118 L MPV 10.1 PT 12.0 INR 1.1 APTT 27 PTT Ratio 1.0 Sodium 136 Potassium 3.6 Chloride 103 Carbon Dioxide 20 L Anion Gap 13 H BUN 53 H Creatinine 3.35 H Est Cr Clr Drug Dosing 29.0 Est GFR ( Amer) 21.9 Est GFR (Non-Af Amer) 18.9 BUN/Creatinine Ratio 15.8 Glucose 248 H POC Glucose Estimat Average Glucose 151 Hemoglobin A1c 6.9 H Calcium 9.5 Total Bilirubin 0.4 AST 23 ALT 15 Alkaline Phosphatase 45 Troponin I High Sens 9.6 Total Protein 7.0 Albumin 4.2 Globulin 2.8 Albumin/Globulin Ratio 1.5 Blood Type A Positive Blood Type Recheck A Positive Antibody Screen NEGATIVE Crossmatch See Detail 01/14/24 06:07 WBC RBC Hgb Hct MCV MCH MCHC RDW Std Deviation RDW Coeff of Liss Plt Count MPV PT INR APTT PTT Ratio Sodium Potassium Chloride Carbon Dioxide Anion Gap BUN Creatinine Est Cr Clr Drug Dosing Est GFR ( Amer) Est GFR (Non-Af Amer) BUN/Creatinine Ratio Glucose POC Glucose 191 H Estimat Average Glucose Hemoglobin A1c Calcium Total Bilirubin AST ALT Alkaline Phosphatase Troponin I High Sens Total Protein Albumin Globulin Albumin/Globulin Ratio Blood Type Blood Type Recheck Antibody Screen Crossmatch Diagnostic Findings ABDOMEN AND PELVIS CT WITHOUT CONTRAST. COMPARISON STUDY: None. FINDINGS: The lung bases are clear. No pneumoperitoneum. No pneumatosis. No acute fractures identified. The heart is mildly enlarged. Decreased attenuation within the blood pool suggestive of underlying anemia. Subtle nodular contour to the liver suggestive of early cirrhosis. No definite hepatic masses. The gallbladder, pancreas, spleen, and adrenal glands are unremarkable. A few prominent periportal lymph nodes which are likely reactive. Normal caliber abdominal aorta. No retroperitoneal lymphadenopathy. Mild bilateral perinephric edema. No renal or ureteral stones. No hydronephrosis. Tiny fat-containing umbilical hernia. No pelvic free fluid or pelvic lymphadenopathy. Mild thickening of the prostate gland. This may be due to chronic outlet obstruction from the mildly enlarged prostate gland. Colonic diverticulosis. No evidence for acute diverticulitis. Fluid-filled nondistended colon. No bowel wall thickening or obstruction. Normal appendix. IMPRESSION: 1. No bowel wall thickening or obstruction. 2. Colonic diverticulosis. No evidence for acute diverticulitis. 3. Fluid-filled colon. This could be due to the recent colonoscopy or directly illness. 4. Mild bladder wall thickening. This could be due to chronic outlet obstruction from the mildly enlarged prostate gland. Recommend correlation with urinalysis to exclude a cystitis. 5. Subtle nodular contour to the liver suggesting early cirrhosis. 6. Decreased attenuation within the bone pole suggestive of underlying anemia. PG Care Time/CCT Total # of Minutes Spent Total Time Spent with Patient: Total time spent is greater than 50% in coordination of care (as documented) at patient's floor/unit and/or counseling patient: Coding Level of Care Code 29908 IN/OBS CONSULT LVL 4,60M Diagnoses SHAMIKA (acute kidney injury) N17.9 Kidney disease, chronic, stage IV (GFR 15-29 ml/min) N18.4 Type 2 diabetes mellitus E11.9 HTN (hypertension) I10 Anemia requiring transfusions D64.9 Thrombocytopenia D69.6 Lower gastrointestinal hemorrhage K92.2 BPH (benign prostatic hyperplasia) N40.0
[2024-01-14] MEDS ORDERED: GABAPENTIN 300 MG CAP PO SCH (09:00)
[2024-01-14 10:02] LABS: Folate (Folic Acid),Ser orPlas 20.72 ng/ml (>5.38)
[2024-01-14] MEDS: GABAPENTIN 300 MG CAP PO SCH (10:07)
[2024-01-14] MEDS: PANTOprazole 40 MG in SYRINGE 0 ML IV SCH (10:07)
--- NOTE | 2024-01-14 12:08 | Gastrointestinal Consultation ---
Date of Consultation January 14, 2024 Assessment & Plan (1) Lower gastrointestinal hemorrhage: Recent colonoscopy on 12/29/23 with 3.5 cm polyp in sigmoid colon resected as well as 6 other polyps ranging up to 1.5 cm in size. Patient resumed Aspirin 4 days after colonoscopy (was advised 7 day hold). He presents with painless BRBPR. This has stopped at present though his H/H was noted to be 6.5/19.0. Clinical concern exists for post-polypectomy bleed vs diverticular bleed vs other. -Clear liquid diet today -NPO after midnight with exception of bowel prep -Colonoscopy with Dr. Benavidez on 01/15/24 Supervising Physician Co-Signing Physician Notes Agree with DANIELLA West as above Interviewed and examined patient Abd: Soft, NT, ND Bowel prep tonight Colonoscopy in the AM History of Present Illness Reason for Consultation: lower GI bleed, anemia Attending Physician: Ethan Beckett MD History of Present Illness Patient is a 58 yo male who presents to the ED at [facility] for evaluation of BRBPR. Patient had a colonoscopy on 12/29/23 during which time he was noted to have a large 3.5 cm sigmoid polyp that was resected (TVA). He also had 6 other polyps ranging in size up to 1.5 cm. He notes that he was advised to hold his Aspirin for 7 days. He resumed after 4 days. He notes that on 01/13/24 he developed significant volume BRBPR. He notes 6 occasions of pure blood being passed without stool. He denies abdominal pain. Upon presentation to the ED, his H/H is 6.5/19.0. BUN 53, Cr 3.35. He had a CT abdomen/pelvis that was fairly unremarkable with the exception of early changes of cirrhosis and diverticulosis. No constipation or diarrhea concerns. He is currently receiving a transfusion of PRBCs. Allergies Allergy/AdvReac Type Severity Reaction Status Date / Time duloxetine AdvReac Intermediate SHAKES ALL Verified 01/13/24 22:50 OVER/DIZZINESS semaglutide [From Ozempic] AdvReac Unknown decreased Verified 01/13/24 22:50 kidney function Home Medications Medication Instructions Recorded Confirmed Type aspirin 81 mg tablet,delayed 81 mg PO DAILY 12/23/23 01/13/24 History release atenolol 50 mg tablet 50 mg PO QAM 12/23/23 01/13/24 History empagliflozin 12.5 mg-metformin 1 tab PO BID 12/23/23 01/13/24 History 1,000 mg tablet losartan 50 mg-hydrochlorothiazide 1 tab PO QAM 12/23/23 01/13/24 History 12.5 mg tablet magnesium oxide 420 mg tablet 420 mg PO BID 12/23/23 01/13/24 History minocycline 100 mg tablet 100 mg PO QAM 12/23/23 01/13/24 History omeprazole 20 mg tablet,delayed 20 mg PO QAM 12/23/23 01/13/24 History release rosuvastatin 40 mg tablet 40 mg PO QAM 12/23/23 01/13/24 History gabapentin 300 mg capsule 300 mg PO TID 01/13/24 01/13/24 History multivitamin 1 tab PO DAILY 01/13/24 01/13/24 History omega 1-eek-pkq-fish oil 1,200 mg 1 cap PO QAM 01/13/24 01/13/24 History (144 mg-216 mg) capsule (Fish Oil) Patient History Medical History History of decreased renal function approx 10/2023 - reaction to ozempic. Resolved. History of COVID-19 (2021) Rosacea Acid reflux Surgical History [place] teeth removed hx Social History Smoking Status: Never smoker Tobacco Type: Smokeless Tobacco (Dip or Chew) Do You Dip or Chew Tobacco: Yes; Hx Alcohol Use: Yes Alcohol type: hard liquor Hx Substance Use: No Preferred Language: Bengali Communication Ability: Effective Guard Manager Required: No Beliefs That Will Affect Care: None Current Living Situation: Spouse Feels Safe at Home: Yes Assistive Devices: Cane, Glasses and Other Review of Systems Constitutional: no fever and no chills Respiratory: no cough and no dyspnea Cardiovascular: no chest pain Gastrointestinal: + blood in stools; no abdominal pain Physical Exam Constitutional: well developed Respiratory: normal respiratory effort Gastrointestinal (Abdomen): normal bowel sounds, soft, nontender, no hepatosplenomegaly Psychiatric: Orientation: alert and oriented x 3 Results & Data Vital Signs (Past 12 Hours) Vital Signs Temp Pulse Resp BP Pulse Ox Pulse Ox O2 Del Method 01/14/24 09:33 37.0 C 67 123/69 97 01/14/24 09:07 36.8 C 65 113/70 100 01/14/24 08:30 37 C 67 112/66 100 01/14/24 08:00 37.0 C 67 111/67 100 01/14/24 07:45 36.9 C 68 117/70 100 01/14/24 07:23 36.9 C 67 16 99/51 L 100 01/14/24 07:13 69 01/14/24 01:30 66 17 125/78 100 01/14/24 01:29 100 Room Air 01/14/24 01:00 66 18 120/72 100 01/14/24 01:00 120/72 01/14/24 01:00 120/72 01/14/24 00:54 66 18 100 01/14/24 00:45 135/71 01/14/24 00:45 135/71 01/14/24 00:45 67 12 100 01/14/24 00:30 127/68 01/14/24 00:27 65 21 100 01/14/24 00:21 63 15 100 PG Care Time/CCT Total # of Minutes Spent Total Time Spent with Patient: Total time spent is greater than 50% in coordination of care (as documented) at patient's floor/unit and/or counseling patient: Coding Level of Care Code 25376 IN/OBS CONSULT LVL 4,60M Diagnoses Lower gastrointestinal hemorrhage K92.2
[2024-01-14 12:17] LABS: Hematocrit (blood only) 22.2 % (42.0-52.0); Hemoglobin 7.6 g/dl (14.0-18.0)
[2024-01-14] MEDS: PIPERACILLIN/TAZOBACTAM 4.5 GM/100ML D5W IV ONE (12:36)
[2024-01-14] MEDS: PIPERACILLIN/TAZOBACTAM 4.5 GM in DEXTROSE 5% MINI-B 100 ML IV ONE (12:36)
[2024-01-14 13:18] LABS: Creatinine Clr Calc Pharmacy 34.2 ml/min; Est GFR (African American) 26.7 ml/min; Est GFR (Non-African American) 23.1 ml/min
[2024-01-14] MEDS ORDERED: METOPROLOL TARTRATE 1 MG/ML VIAL IV PRN (16:42)
[2024-01-14] MEDS: PIPERACILLIN/TAZOBACTAM 4.5 GM in DEXTROSE 5% MINI-B 100 ML IV SCH (16:55)
[2024-01-14] MEDS: LAVAGE SOLUTION 4000ML PO SCH (18:00)
[2024-01-15 06:43] LABS: Hematocrit (blood only) 20.3 % (42.0-52.0); Hemoglobin 7.2 g/dl (14.0-18.0); Mean Corpuscular Hemoglobin 33.8 pg (25.0-34.0); Mean Corpuscular Hgb Conc 35.5 g/dL (32.0-36.0); Mean Corpuscular Volume 95.3 fL (80.0-100.0); Mean Platelet Volume 10.4 fL (9.4-12.4); Platelet Count 67 K/uL (130-400); RDW Coefficient of Variation 16.3 % (11.5-14.5); RDW Standard Deviation 57.1 fL (36.4-46.3); Red Blood Count 2.13 M/uL (4.70-6.10); White Blood Count 4.39 K/ul (4.8-10.8)
[2024-01-15 06:47] LABS: BUN Creatinine Ratio 14.6 (10-20); Calcium 8.3 mg/dl (8.6-10.3); Creatinine Clr Calc Pharmacy 37.1 ml/min; Est GFR (African American) 29.6 ml/min; Est GFR (Non-African American) 25.5 ml/min; Potassium 3.5 mmol/L (3.5-5.1)
--- NOTE | 2024-01-15 06:55 | Electrocardiogram Report ---
Test Reason : Blood Pressure : / mmHG Vent. Rate : 062 BPM Atrial Rate : 062 BPM P-R Int : 138 ms QRS Dur : 096 ms QT Int : 436 ms P-R-T Axes : 002 -15 014 degrees QTc Int : 442 ms Normal sinus rhythm Minimal voltage criteria for LVH, may be normal variant ( R in aVL ) Borderline ECG No previous ECGs available Confirmed by Ky Clemens ([id number]) on 01/15/2024 6:55:08 AM Referred By: REFERRED SELF Confirmed By:Ky Clemens
[2024-01-15 07:49] LABS: Appearance Urine Clear (Clear); Bacteria Urine Automated None Seen (None Seen); Bilirubin Urine Negative (Negative); Blood Urine Trace (Negative); Cast Urine Automated 0-2 /lpf (0-2); Color Urine Yellow; Epithelial Cell Urine Auto 0-2 /hpf (0-2); Glucose Urine UA 2+ (Negative); Ketones Urine Negative (Negative); Leukocyte Esterase Urine Negative (Negative); Nitrite Urine Negative (Negative); Protein Urine 1+ (Negative); RBC Urine Automated 0-2 /hpf (0-2); Specific Gravity Urine 1.014 (1.000-1.030); Urobilinogen Urine Negative (Negative); WBC Urine Automated 0-5 /hpf (0-5)
[2024-01-15] MEDS ORDERED: SODIUM CHLORIDE 0.9% 250 ML IV PRN (08:19)
--- NOTE | 2024-01-15 08:37 | History & Physical Bridge Note ---
Date of Service January 15, 2024 History & Physical Bridge Note I have reviewed the History & Physical and in the interval since the performance of the History & Physical I have noted the following changes of clinical significance: no changes noted. Patient has completed his bowel prep. H/H 7.2/20.3. BUN/Cr 38/2.61. Keep NPO for colonoscopy today. Supervising Physician Co-Signing Physician Notes Agree with DANIELLA West as above Abd: Soft, NT, ND, +BS Proceed with colonoscopy now
--- NOTE | 2024-01-15 10:09 | Nephrology Progress Note ---
Date of Service January 15, 2024 Assessment & Plan (1) SHAMIKA (acute kidney injury): Plan: Hemodynamically mediated. Creatinine improving with supportive care (IVF and PRBC transfusion support). Electrolytes and volume status acceptable. Losartan, HCTZ, metformin, empagliflozin, and semaglutide have been held. Rosuvastatin also held (if restarted, max recommended dose at this time would be 10 mg). Document strict I/O's. Repeat metabolic profile tomorrow AM. (2) Kidney disease, chronic, stage IV (GFR 15-29 ml/min): Plan: CKD III-IV by history. Followed by nephrology through the [place]. Records from the [place] (recent labs from November) requested. Baseline creatinine unknown. CKD attributed to DKD. (3) Type 2 diabetes mellitus: Plan: Metformin, empagliflozin, and semaglutide held. SSI protocol introduced. (4) HTN (hypertension): Plan: Hypotension due to decreased EAV. HCTZ and losartan held. (5) Anemia requiring transfusions: Plan: Additional PRBC transfusion support being provided. (6) Thrombocytopenia: (7) Lower gastrointestinal hemorrhage: Plan: Colonoscopy planned today with Dr. Benavidez. Recent polypectomy. (8) BPH (benign prostatic hyperplasia): Plan: No hydronephrosis or evidence of obstruction on imaging. Admission and Anticipated Discharge Date Admission Date: January 14, 2024 Mary Jo Gaona is resting comfortably in bed this morning. His is at the bedside. He reports persistent evidence of bleeding in his stool overnight (black stool and some bright red blood). No pain. He is breathing comfortably. He denies fluid retention or edema. Review of Systems Review of Systems: All systems reviewed & are unremarkable except as noted in HPI & below Physical Exam Constitutional: well developed; no acute distress Eyes: no scleral abnormality and no corneal abnormality ENMT: Mouth: no oral mucosal abnormality and oral mucous membranes not dry Neck: normal visual inspection and trachea midline Respiratory: normal respiratory effort Auscultation: lungs clear to auscultation bilaterally Cardiovascular: Rate/Rhythm: regular rate Heart Sounds: normal S1 and normal S2 Extremities: no edema Musculoskeletal: Extremities: no cyanosis and no clubbing Skin: normal turgor; no lesions Neurologic: Motor/Sensory: no tremor and no asterixis Psychiatric: Orientation: alert and oriented x 3 Results & Data Vital Signs (Past 12 Hours) Vital Signs Temp Pulse Pulse Resp BP Pulse Ox O2 Del Method 01/15/24 07:16 36.6 C 60 17 104/54 L 100 Room Air 01/15/24 03:45 36.6 C 63 18 147/78 H 100 Room Air 01/14/24 23:41 61 01/14/24 22:17 36.7 C 63 18 130/76 100 Room Air Laboratory Results Laboratory Results - last 24 hr 01/14/24 01/14/24 01/14/24 11:44 12:33 12:44 WBC RBC Hgb 7.6 L Hct 22.2 L MCV MCH MCHC RDW Std Deviation RDW Coeff of Liss Plt Count MPV Sodium Potassium Chloride Carbon Dioxide Anion Gap BUN Creatinine 2.84 H D Est Cr Clr Drug Dosing 34.2 Est GFR ( Amer) 26.7 Est GFR (Non-Af Amer) 23.1 BUN/Creatinine Ratio Glucose POC Glucose 197 H Calcium Urine Color Urine Appearance Urine pH Ur Specific [place] Urine Protein Urine Glucose (UA) Urine Ketones Urine Blood Urine Nitrite Urine Bilirubin Urine Urobilinogen Ur Leukocyte Esterase Urine WBC (Auto) Urine RBC (Auto) U Hyaline Cast (Auto) U Epithel Cells (Auto) Urine Bacteria (Auto) 01/14/24 01/14/24 01/15/24 16:21 20:39 05:41 WBC RBC Hgb Hct MCV MCH MCHC RDW Std Deviation RDW Coeff of Liss Plt Count MPV Sodium Potassium Chloride Carbon Dioxide Anion Gap BUN Creatinine Est Cr Clr Drug Dosing Est GFR ( Amer) Est GFR (Non-Af Amer) BUN/Creatinine Ratio Glucose POC Glucose 259 H 197 H 169 H Calcium Urine Color Urine Appearance Urine pH Ur Specific [place] Urine Protein Urine Glucose (UA) Urine Ketones Urine Blood Urine Nitrite Urine Bilirubin Urine Urobilinogen Ur Leukocyte Esterase Urine WBC (Auto) Urine RBC (Auto) U Hyaline Cast (Auto) U Epithel Cells (Auto) Urine Bacteria (Auto) 01/15/24 01/15/24 05:42 Unknown WBC 4.39 L RBC 2.13 L Hgb 7.2 L Hct 20.3 L* MCV 95.3 D MCH 33.8 MCHC 35.5 RDW Std Deviation 57.1 H RDW Coeff of Liss 16.3 H Plt Count 67 L MPV 10.4 Sodium 138 Potassium 3.5 Chloride 104 Carbon Dioxide 23 Anion Gap 11 BUN 38 H Creatinine 2.61 H Est Cr Clr Drug Dosing 37.1 Est GFR ( Amer) 29.6 Est GFR (Non-Af Amer) 25.5 BUN/Creatinine Ratio 14.6 Glucose 140 H POC Glucose Calcium 8.3 L Urine Color Yellow Urine Appearance Clear Urine pH 5.0 Ur Specific [place] 1.014 Urine Protein 1+ H Urine Glucose (UA) 2+ H Urine Ketones Negative Urine Blood Trace H Urine Nitrite Negative Urine Bilirubin Negative Urine Urobilinogen Negative Ur Leukocyte Esterase Negative Urine WBC (Auto) 0-5 Urine RBC (Auto) 0-2 U Hyaline Cast (Auto) 0-2 U Epithel Cells (Auto) 0-2 Urine Bacteria (Auto) None Seen PG Care Time/CCT Total # of Minutes Spent Total Time Spent with Patient: Total time spent is greater than 50% in coordination of care (as documented) at patient's floor/unit and/or counseling patient: Coding Level of Care Code 72011 SUB INP/OBS CARE 3/50MIN Diagnoses SHAMIKA (acute kidney injury) N17.9 Kidney disease, chronic, stage IV (GFR 15-29 ml/min) N18.4 Type 2 diabetes mellitus E11.9 HTN (hypertension) I10 Anemia requiring transfusions D64.9 Thrombocytopenia D69.6 Lower gastrointestinal hemorrhage K92.2 BPH (benign prostatic hyperplasia) N40.0
[2024-01-15] MEDS: SODIUM CHLORIDE 0.9% 500 ML IV SCH (13:22)
--- NOTE | 2024-01-15 13:22 | Anesthesiology Consultation ---
Date of Service January 15, 2024 Assessment & Plan Chart Review Chart Review: Acceptable Risk for Surgery and Patient NOT seen in Pre Admission Testing Consults Requested none History Surgery Operation Date: 01/15/24 16:30 Proposed Procedures p Colonoscopy Dr. Pramod Castillo Case, DO Height/Weight Height: 5 ft 11 in Weight: 104.7 kg Allergies Allergy/AdvReac Type Severity Reaction Status Date / Time duloxetine AdvReac Intermediate SHAKES ALL Verified 01/13/24 22:50 OVER/DIZZINESS semaglutide [From Ozempic] AdvReac Unknown decreased Verified 01/13/24 22:50 kidney function Medications Home Medications Medication Instructions Recorded Confirmed Last Taken aspirin 81 mg tablet,delayed 81 mg PO DAILY 12/23/23 01/13/24 01/13/24 release atenolol 50 mg tablet 50 mg PO QAM 12/23/23 01/13/24 01/13/24 empagliflozin 12.5 mg-metformin 1 tab PO BID 12/23/23 01/13/24 01/13/24 1,000 mg tablet losartan 50 mg-hydrochlorothiazide 1 tab PO QAM 12/23/23 01/13/24 01/13/24 12.5 mg tablet magnesium oxide 420 mg tablet 420 mg PO BID 12/23/23 01/13/24 01/13/24 minocycline 100 mg tablet 100 mg PO QAM 12/23/23 01/13/24 01/13/24 omeprazole 20 mg tablet,delayed 20 mg PO QAM 12/23/23 01/13/24 01/13/24 release rosuvastatin 40 mg tablet 40 mg PO QAM 12/23/23 01/13/24 01/13/24 gabapentin 300 mg capsule 300 mg PO TID 01/13/24 01/13/24 01/13/24 multivitamin 1 tab PO DAILY 01/13/24 01/13/24 01/13/24 omega 1-zxh-kmc-fish oil 1,200 mg 1 cap PO QAM 01/13/24 01/13/24 01/13/24 (144 mg-216 mg) capsule (Fish Oil) Active Medications Generic Name Dose Route Start Last Admin Trade Name Freq PRN Reason Stop Dose Admin Gabapentin 300 mg 01/14/24 09:00 01/14/24 10:07 Gabapentin 300 Mg Cap PO 02/13/24 08:59 300 mg DAILY MONICA Administration Pantoprazole Sodium 40 mg/ 10 mls @ 5 mls/min 01/14/24 11:00 01/15/24 12:52 Syringe IV 02/13/24 10:59 5 mls/min DAILY@1100 MONICA Administration Piperacillin Sod/Tazobactam 100 mls @ 25 mls/hr 01/14/24 17:00 01/15/24 09:51 Sod 4.5 gm/ Dextrose IV 01/24/24 16:59 25 mls/hr Q8H MONICA Administration Protocol Insulin Aspart 0 units 01/14/24 06:00 01/15/24 12:28 Insulin Aspart Per Unit Charge SC 02/13/24 05:59 Not Given Q6 MONICA Past Medical History Medical History History of decreased renal function approx 10/2023 - reaction to ozempic. Resolved. History of COVID-19 (2021) Rosacea Acid reflux Past Surgical History Surgical History [place] teeth removed hx Social History Smoking Status: Never smoker Do You Dip or Chew Tobacco: Yes Hx Alcohol Use: Yes Alcohol type: hard liquor alcohol intake frequency: a few times a week Hx Substance Use: No substance use type: does not use Review of Systems Constitutional: no fever and no chills Respiratory: no cough and no dyspnea Cardiovascular: no chest pain Gastrointestinal: + diarrhea/loose stools and + blood in stools; no abdominal pain Physical Exam Vital Signs Last Vital Signs Temp 36.8 C 01/15/24 12:42 Pulse 59 L 01/15/24 12:42 Resp 20 01/15/24 12:42 BP 150/86 H 01/15/24 12:42 Pulse Ox 96 01/15/24 12:42 O2 Del Method Room Air 01/15/24 07:16 Constitutional well developed; no acute distress Eyes no scleral abnormality and no corneal abnormality ENMT Mouth: no oral mucosal abnormality and oral mucous membranes not dry Neck normal visual inspection and trachea midline Respiratory normal respiratory effort Auscultation: lungs clear to auscultation bilaterally Cardiovascular Rate/Rhythm: regular rate Heart Sounds: normal S1 and normal S2 Extremities: no edema Gastrointestinal (Abdomen) normal bowel sounds, soft, nontender, no hepatosplenomegaly Musculoskeletal Extremities: no cyanosis and no clubbing Skin normal turgor; no lesions Neurologic Motor/Sensory: no tremor and no asterixis Psychiatric Orientation: alert and oriented x 3 Testing Laboratory Results 01/15/24 05:42 01/15/24 05:42 PT 12.0 Seconds (9.0-12.0) 01/13/24 20:50 INR 1.1 (0.9-1.1) 01/13/24 20:50 APTT 27 Seconds (21-31) 01/13/24 20:50 Hemoglobin A1c 6.9 % (4.5-5.6) H 01/14/24 04:38 Urine Color Yellow 01/15/24 Unknown Urine Appearance Clear (Clear) 01/15/24 Unknown Urine pH 5.0 (4.5-7.5) 01/15/24 Unknown Ur Specific [place] 1.014 (1.000-1.030) 01/15/24 Unknown Urine Protein 1+ (Negative) H 01/15/24 Unknown Urine Glucose (UA) 2+ (Negative) H 01/15/24 Unknown Urine Ketones Negative (Negative) 01/15/24 Unknown Urine Nitrite Negative (Negative) 01/15/24 Unknown Ur Leukocyte Esterase Negative (Negative) 01/15/24 Unknown Urine WBC (Auto) 0-5 /hpf (0-5) 01/15/24 Unknown Urine RBC (Auto) 0-2 /hpf (0-2) 01/15/24 Unknown U Hyaline Cast (Auto) 0-2 /lpf (0-2) 01/15/24 Unknown U Epithel Cells (Auto) 0-2 /hpf (0-2) 01/15/24 Unknown Urine Bacteria (Auto) None Seen (None Seen) 01/15/24 Unknown Blood Type A Positive 01/13/24 20:50 Antibody Screen NEGATIVE 01/13/24 20:50 01/15/24 01/15/24 11:57 05:41 POC Glucose 175 H 169 H
--- NOTE | 2024-01-15 14:43 | Anesthesiology Progress Note ---
Date of Service January 15, 2024 Anesthesia Post Procedure Vital Signs Vital Signs: Temp Pulse Pulse Resp BP BP BP 01/15/24 13:27 36.9 C 60 21 141/85 H 01/15/24 13:17 36.9 C 65 18 143/80 H 01/15/24 12:42 36.8 C 59 L 18 150/86 H 01/15/24 12:42 36.8 C 59 L 20 150/86 H 01/15/24 12:12 36.8 C 60 18 142/77 H 01/15/24 12:12 61 143/65 H 01/15/24 11:57 37 C 60 18 143/65 H 01/15/24 11:57 36.9 C 58 L 144/78 H 01/15/24 11:41 36.6 C 60 20 129/74 01/15/24 09:00 60 01/15/24 07:16 36.6 C 60 17 104/54 L 01/15/24 03:45 36.6 C 63 18 147/78 H 01/14/24 23:41 61 01/14/24 22:17 36.7 C 63 18 130/76 01/14/24 20:00 01/14/24 19:47 36.6 C 59 L 20 136/82 01/14/24 16:00 62 Pulse Ox O2 Del Method 01/15/24 13:27 100 01/15/24 13:17 100 Room Air 01/15/24 12:42 96 01/15/24 12:42 96 01/15/24 12:12 98 01/15/24 12:12 01/15/24 11:57 99 01/15/24 11:57 20 L 01/15/24 11:41 98 01/15/24 09:00 01/15/24 07:16 100 Room Air 01/15/24 03:45 100 Room Air 01/14/24 23:41 01/14/24 22:17 100 Room Air 01/14/24 20:00 Room Air 01/14/24 19:47 100 Room Air 01/14/24 16:00 Transfer of Care Handoff Completed per policy Notes Mental Status: alert / awake / arousable Patient Amnestic to Procedure: Yes Nausea / Vomiting: adequately controlled Pain: adequately controlled Airway Patency, RR, SpO2: stable & adequate BP & HR: stable & adequate Hydration State: stable & adequate Anesthetic Complications: no major complications apparent and Pt Satisfied with anesthetic care
--- NOTE | 2024-01-15 14:54 | GI REPORT ---
[facility] Patient: ROSY HANSON : 1965 Sex at : Male Age: 58 Years Procedure: Colonoscopy Date: 01/15/2024 Attending Physician: DO Epi Salazar MD: Ethan Beckett Indications: - Hematochezia Medications: - Monitored Anesthesia Care Complications: - No immediate complications. Estimated Blood Loss: - Estimated blood loss: None. Procedure: - Prior to the procedure, a History and Physical was performed, and patient medications and allergies were reviewed. The patient's tolerance of previous anesthesia was also reviewed. The risks and benefits of the procedure and the sedation options and risks were discussed with the patient. All questions were answered, and informed consent was obtained. Prior Anticoagulants: The patient has taken no anticoagulant or antiplatelet agents except for aspirin, last dose was 2 days prior to procedure. ASA Grade Assessment: IV - A patient with severe systemic disease that is a constant threat to life. After reviewing the risks and benefits, the patient was deemed in satisfactory condition to undergo the procedure. - The adult colonoscope was introduced through the anus and advanced to the terminal ileum, with identification of the appendiceal orifice and ileocecal valve. - The colonoscopy was performed without difficulty. - The patient tolerated the procedure well. - The quality of the bowel preparation was excellent. - The terminal ileum, ileocecal valve, appendiceal orifice, and rectum were photographed. Findings: - Oozing blood was seen in the sigmoid colon, secondary to previous polypectomy procedure. Area was unsuccessfully injected with 3 mL of a 0.1 mg/mL solution of epinephrine for hemostasis. For hemostasis, four hemostatic clips were successfully placed. Clip turner in: mgMEDIA. Fulguration to stop the bleeding by bipolar probe was successful. - Multiple small-mouthed diverticula were found in the sigmoid colon. - Internal hemorrhoids were found during retroflexion. The hemorrhoids were small. Impression: - Bleeding in the sigmoid colon secondary to previous polypectomy. Treatment not successful. Clips were placed. Clip turner in: mgMEDIA. Treated with bipolar cautery. - Diverticulosis in the sigmoid colon. - Internal hemorrhoids. - No specimens collected. Recommendation: - Discharge patient to home (ambulatory). - Resume previous diet. - Continue present medications. Discussed case with Dr. Beckett, and I would recommend a total 10 day course of antibiotics, as the patient is currently on Zosyn therapy. - Repeat colonoscopy in 1 year for surveillance. - Patient has a contact number available for emergencies. The signs and symptoms of potential delayed complications were discussed with the patient. Return to normal activities tomorrow. Written discharge instructions were provided to the patient. Procedure Code(s): - 10480-41, Colonoscopy, flexible; with control of bleeding, any method Diagnosis Code(s): - K92.1, Melena (includes Hematochezia) - K91.840, Postprocedural hemorrhage of a digestive system organ or structure following a digestive system procedure - K64.8, Other hemorrhoids - K57.30, Diverticulosis of large intestine without perforation or abscess without bleeding CPT(R) - 2023 copyright [employer]. All Rights Reserved. The CPT codes, CCI edits and ICD codes generated are intended as suggestions and were generated based on input data. These codes are preliminary and upon assembler dry cell and battery review may be revised to meet current compliance and payer requirements. The provider is responsible for the final determination of appropriate codes, and modifiers. Dr. Mike Benavidez, DO This document has been electronically signed. Note Initiated:01/15/2024 Note Completed:01/15/2024 2:53 PM \\[email or web address]\[id number]
[2024-01-15 15:34] VITALS: RESP 18
[2024-01-15] MEDS: PROPOFOL IV EMULSION 10 MG/ML 20 ML VIAL IV ONE (15:39)
[2024-01-15] MEDS: MIDAZOLAM HCL 1 MG/ML 2ML VIAL ONE (15:39)
[2024-01-15] MEDS: fentaNYL citrate PF 100 MCG/2 ML VIAL ONE (15:39)
[2024-01-15] MEDS ORDERED: Nursing to Pharmacy Communication SCH (15:45)
--- NOTE | 2024-01-15 16:18 | Hospitalist Progress Note ---
Date of Service January 15, 2024 Assessment & Plan (1) Anemia requiring transfusions: Plan: Symptomatic anemia pt presented with syncope and collapse/status post colon polypectomy transfused 3 u prbc Postprocedural lower GI bleed with acute blood loss anemia due to polypectomies Colonoscopy 01/14/2023. Bleeding noted at previous polypectomy site sigmoid colon. Clips were placed and bipolar cautery was used Recommendations to continue antibiotics for 10 days (currently on Zosyn) not to resume aspirin for 7 days Transition Protonix back to p.o. CT scan abdomen and pelvis notes probable early cirrhosis Thrombocytopenia- Platelets did improve given DDAVP for platelet reversal, and follow, as patient has only been on aspirin for primary prevention. (2) Kidney disease, chronic, stage IV (GFR 15-29 ml/min): Plan: CKD stage IV- Patient reports that he was told he had lost significant kidney function due to being on semaglutide/Ozempic. Creatinine on 11/05/2023 was 3.8. Patient's creatinine is improving with oversight by nephrology ckd may also be contributing to his anemia He presently is on empagliflozin/metformin, and losartan/HCTZ, all of which will be held He will be transfused 3 units PRBCs (3) Type 2 diabetes mellitus: Plan: Diabetes mellitus- Holding empagliflozin/metformin as noted Placed on Accu-Cheks with NovoLog SSI neuropathy likely diabetic continues on gabapentin (4) HTN (hypertension): Plan: Holding losartan-HCTZ due to CKD Hold atenolol due to relatively low blood pressure (5) BPH (benign prostatic hyperplasia): Plan: CT of abdomen/pelvis shows findings consistent with BPH with LUTS, with chronic outlet obstruction May do a trial of tamsulosin, when is medically stable Admission and Anticipated Discharge Date Admission Date: January 14, 2024 Subjective pt is less pale after transfusion no abdominal pain some blood in stool with GI prep Physical Exam Physical Exam: awake and alert lungs are clear abd is soft and non tender Results & Data Results & Data Vital Signs (Past 12 Hours) Vital Signs Temp Pulse Pulse Resp BP BP BP 01/15/24 15:33 98.1 F 57 L 18 152/79 H 01/15/24 15:09 59 L 21 142/86 H 01/15/24 14:54 63 16 136/77 01/15/24 14:39 96.8 F L 71 14 117/59 L 01/15/24 13:27 98.4 F 60 21 141/85 H 01/15/24 13:17 98.4 F 65 18 143/80 H 01/15/24 12:42 98.2 F 59 L 18 150/86 H 01/15/24 12:42 98.2 F 59 L 20 150/86 H 01/15/24 12:12 98.2 F 60 18 142/77 H 01/15/24 12:12 61 143/65 H 01/15/24 11:57 98.6 F 60 18 143/65 H 01/15/24 11:57 98.4 F 58 L 144/78 H 01/15/24 11:41 97.9 F 60 20 129/74 01/15/24 09:00 60 01/15/24 07:16 97.9 F 60 17 104/54 L Pulse Ox O2 Del Method 01/15/24 15:33 100 Room Air 01/15/24 15:09 95 Room Air 01/15/24 14:54 100 Room Air 01/15/24 14:39 100 Room Air 01/15/24 13:27 100 01/15/24 13:17 100 Room Air 01/15/24 12:42 96 01/15/24 12:42 96 01/15/24 12:12 98 01/15/24 12:12 01/15/24 11:57 99 01/15/24 11:57 20 L 01/15/24 11:41 98 01/15/24 09:00 01/15/24 07:16 100 Room Air Laboratory Results review cbc ordered additional unit of blood review chemsity PG Care Time/CCT Total # of Minutes Spent Total Time Spent with Patient: Total time spent is greater than 50% in coordination of care (as documented) at patient's floor/unit and/or counseling patient: Coding Level of Care Code 15034 SUB INP/OBS CARE 2/35MIN Diagnoses Anemia requiring transfusions D64.9 Kidney disease, chronic, stage IV (GFR 15-29 ml/min) N18.4 Type 2 diabetes mellitus E11.9 HTN (hypertension) I10 BPH (benign prostatic hyperplasia) N40.0
[2024-01-15] MEDS: INSULIN ASPART PER UNIT CHARGE SC SCH (17:10)
[2024-01-16 05:53] LABS: Hematocrit (blood only) 25.1 % (42.0-52.0); Hemoglobin 8.7 g/dl (14.0-18.0); Mean Corpuscular Hemoglobin 32.8 pg (25.0-34.0); Mean Corpuscular Hgb Conc 34.7 g/dL (32.0-36.0); Mean Corpuscular Volume 94.7 fL (80.0-100.0); Mean Platelet Volume 10.3 fL (9.4-12.4); Platelet Count 75 K/uL (130-400); RDW Coefficient of Variation 16.1 % (11.5-14.5); RDW Standard Deviation 55.8 fL (36.4-46.3); Red Blood Count 2.65 M/uL (4.70-6.10); White Blood Count 5.47 K/ul (4.8-10.8)
[2024-01-16 06:04] LABS: Calcium 8.5 mg/dl (8.6-10.3); Est GFR (African American) 31.8 ml/min; Est GFR (Non-African American) 27.4 ml/min; Potassium 3.5 mmol/L (3.5-5.1)
--- NOTE | 2024-01-16 07:18 | Hospitalist Progress Note ---
Date of Service January 16, 2024 Assessment & Plan (1) Anemia requiring transfusions: Plan: Symptomatic anemia pt presented with syncope and collapse/status post colon polypectomy transfused 3 u prbc Postprocedural lower GI bleed with acute blood loss anemia due to polypectomies Colonoscopy 01/14/2023. Bleeding noted at previous polypectomy site sigmoid colon. Clips were placed and bipolar cautery was used Recommendations to continue antibiotics for 10 days (currently on Zosyn) not to resume aspirin for 7 days Transition Protonix back to p.o. CT scan abdomen and pelvis notes probable early cirrhosis Thrombocytopenia- Platelets did improve given DDAVP for platelet reversal, and follow, as patient has only been on aspirin for primary prevention. (2) Kidney disease, chronic, stage IV (GFR 15-29 ml/min): Plan: CKD stage IV- Patient reports that he was told he had lost significant kidney function due to being on semaglutide/Ozempic. Creatinine on 11/05/2023 was 3.8. Patient's creatinine is improving with oversight by nephrology ckd may also be contributing to his anemia He presently is on empagliflozin/metformin, and losartan/HCTZ, all of which will be held He will be transfused 3 units PRBCs (3) Type 2 diabetes mellitus: Plan: Diabetes mellitus- Holding empagliflozin/metformin as noted Placed on Accu-Cheks with NovoLog SSI neuropathy likely diabetic continues on gabapentin (4) HTN (hypertension): Plan: Holding losartan-HCTZ due to CKD Hold atenolol due to relatively low blood pressure (5) BPH (benign prostatic hyperplasia): Plan: CT of abdomen/pelvis shows findings consistent with BPH with LUTS, with chronic outlet obstruction May do a trial of tamsulosin, when is medically stable Admission and Anticipated Discharge Date Admission Date: January 14, 2024 Results & Data Results & Data Vital Signs (Past 12 Hours) Vital Signs Temp Pulse Pulse Resp BP BP Pulse Ox 01/16/24 06:55 54 L 01/16/24 05:12 98.6 F 63 18 147/83 H 98 01/15/24 22:34 98.2 F 63 18 134/78 99 01/15/24 22:02 62 01/15/24 19:28 98.6 F 60 18 139/79 100 O2 Del Method 01/16/24 06:55 01/16/24 05:12 Room Air 01/15/24 22:34 Room Air 01/15/24 22:02 01/15/24 19:28 Room Air PG Care Time/CCT Total # of Minutes Spent Total Time Spent with Patient: Total time spent is greater than 50% in coordination of care (as documented) at patient's floor/unit and/or counseling patient: Coding Diagnoses Anemia requiring transfusions D64.9 Kidney disease, chronic, stage IV (GFR 15-29 ml/min) N18.4 Type 2 diabetes mellitus E11.9 HTN (hypertension) I10 BPH (benign prostatic hyperplasia) N40.0
[2024-01-16 11:16] VITALS: BP 112/51; PULSE 60; TEMP 98.1; O2SAT 98
--- NOTE | 2024-01-16 11:42 | Communication Note ---
Date of Service: January 16, 2024 Patient is a 58 yo male with a post-polypectomy bleed. He underwent a colonoscopy yesterday and the site was clipped. H/H today is 8.7/25.1. He is not having any further GI bleeding at present. 10 days of antibiotic therapy were advised given his clinical circumstances. Please note that patient's colonoscopy report says repeat colonoscopy in 1 year, however he is already scheduled for a colonoscopy in 6 months for a repeat given the TVA/size noted of his polyps on his initial colonoscopy in December.
--- NOTE | 2024-01-16 13:00 | Nephrology Progress Note ---
Date of Service January 16, 2024 Assessment & Plan (1) SHAMIKA (acute kidney injury): Plan: Hemodynamically mediated. Creatinine improving with supportive care. Electrolytes and volume status acceptable. Losartan, HCTZ, metformin, and empagliflozin have been held. Rosuvastatin may be restarted. Losartan may be restarted as needed. Continue to hold metformin and empagliflozin pending outpatient follow up with nephrology. (2) Kidney disease, chronic, stage IV (GFR 15-29 ml/min): Plan: CKD III-IV by history. Followed by nephrology through the [facility]. Records from the [facility] (recent labs from November) requested. Baseline creatinine unknown. CKD attributed to DKD. (3) Type 2 diabetes mellitus: Plan: Metformin and empagliflozin will be held pending outpatient follow up with nephrology. (4) HTN (hypertension): Plan: Hypotension due to decreased EAV. HCTZ held. Losartan may be restarted as needed. (5) Anemia requiring transfusions: Plan: Due to L GIB. Hemoglobin acceptable this AM. (6) Thrombocytopenia: (7) Lower gastrointestinal hemorrhage: Plan: Colonoscopy with Dr. Benavidez completed yesterday with identification of source of bleed. (8) BPH (benign prostatic hyperplasia): Plan: No hydronephrosis or evidence of obstruction on imaging. Admission and Anticipated Discharge Date Admission Date: January 14, 2024 Subjective No acute events overnight. Colonoscopy identified bleeding from polypectomy site treated with clip placement. No additional signs of bleeding reported. Jimenez was seen and evaluated with his at the bedside. He feels well and hopes to be discharged home. Review of Systems Review of Systems: All systems reviewed & are unremarkable except as noted in HPI & below Physical Exam Constitutional: well developed; no acute distress Eyes: no scleral abnormality and no corneal abnormality ENMT: Mouth: no oral mucosal abnormality and oral mucous membranes not dry Neck: normal visual inspection and trachea midline Respiratory: normal respiratory effort Auscultation: lungs clear to auscultation bilaterally Cardiovascular: Rate/Rhythm: regular rate Heart Sounds: normal S1 and nor mal S2 Extremities: no edema Musculoskeletal: Extremities: no cyanosis and no clubbing Skin: normal turgor; no lesions Neurologic: Motor/Sensory: no tremor and no asterixis Psychiatric: Orientation: alert and oriented x 3 Results & Data Vital Signs (Past 12 Hours) Vital Signs Temp Pulse Pulse Resp BP BP Pulse Ox 01/16/24 12:12 36.7 C 60 18 134/78 112/51 L 98 01/16/24 11:15 36.7 C 60 18 112/51 L 98 01/16/24 08:19 36.8 C 65 18 143/70 H 99 01/16/24 06:55 54 L 01/16/24 05:12 37 C 63 18 147/83 H 98 O2 Del Method 01/16/24 12:12 01/16/24 11:15 Room Air 01/16/24 08:19 Room Air 01/16/24 06:55 01/16/24 05:12 Room Air Laboratory Results Laboratory Results - last 24 hr 01/13/24 01/15/24 01/15/24 20:50 16:15 19:56 WBC RBC Hgb Hct MCV MCH MCHC RDW Std Deviation RDW Coeff of Liss Plt Count MPV Sodium Potassium Chloride Carbon Dioxide Anion Gap BUN Creatinine Est Cr Clr Drug Dosing Est GFR ( Amer) Est GFR (Non-Af Amer) BUN/Creatinine Ratio Glucose POC Glucose 167 H 186 H Calcium Crossmatch See Detail 01/16/24 01/16/24 01/16/24 05:22 07:16 11:14 WBC 5.47 RBC 2.65 L Hgb 8.7 L Hct 25.1 L MCV 94.7 MCH 32.8 MCHC 34.7 RDW Std Deviation 55.8 H RDW Coeff of Liss 16.1 H Plt Count 75 L MPV 10.3 Sodium 135 L Potassium 3.5 Chloride 101 Carbon Dioxide 23 Anion Gap 11 BUN 27 H Creatinine 2.46 H Est Cr Clr Drug Dosing 39.0 Est GFR ( Amer) 31.8 Est GFR (Non-Af Amer) 27.4 BUN/Creatinine Ratio 11.0 Glucose 125 H POC Glucose 138 H 201 H Calcium 8.5 L Crossmatch PG Care Time/CCT Total # of Minutes Spent Total Time Spent with Patient: Total time spent is greater than 50% in coordination of care (as documented) at patient's floor/unit and/or counseling patient: Coding Level of Care Code 29132 SUB INP/OBS CARE 3/50MIN Diagnoses SHAMIKA (acute kidney injury) N17.9 Kidney disease, chronic, stage IV (GFR 15-29 ml/min) N18.4 Type 2 diabetes mellitus E11.9 HTN (hypertension) I10 Anemia requiring transfusions D64.9 Thrombocytopenia D69.6 Lower gastrointestinal hemorrhage K92.2 BPH (benign prostatic hyperplasia) N40.0
--- NOTE | 2024-01-16 18:11 | Discharge Summary ---
Discharge Summary Date of Service January 16, 2024 Principal Dx & Hospital Course #1 = Principal Diagnosis (1) Anemia requiring transfusions: Symptomatic anemia pt presented with syncope and collapse/status post colon polypectomy transfused 3 u prbc Postprocedural lower GI bleed with acute blood loss anemia due to polypectomies Colonoscopy 01/14/2023. Bleeding noted at previous polypectomy site sigmoid colon. Clips were placed and bipolar cautery was used Recommendations to continue antibiotics for 10 days total (currently on Zosyn) not to resume aspirin for 7 days Transition Protonix back to p.o. CT scan abdomen and pelvis notes probable early cirrhosis Thrombocytopenia- Platelets did improve given DDAVP for platelet reversal, and follow, as patient has only been on aspirin for primary prevention. (2) Kidney disease, chronic, stage IV (GFR 15-29 ml/min): CKD stage IV- Patient reports that he was told he had lost significant kidney function due to being on semaglutide/Ozempic. He presently is on empagliflozin/metformin, and losartan/HCTZ, all of which will restarted He will be transfused 3 units PRBCs (3) Type 2 diabetes mellitus: Diabetes mellitus- resume empagliflozin/metformin as noted neuropathy likely diabetic continues on gabapentin (4) HTN (hypertension): losartan-HCTZ due to CKD atenolol (5) BPH (benign prostatic hyperplasia): CT of abdomen/pelvis shows findings consistent with BPH with LUTS, with chronic outlet obstruction Notes For Next Care Provider certainly will need eval for diabetic medications renal function and blood pressure control Admission HPI Per Admitting Provider The patient is a 58-year-old male with a past medical history including hypertension, diabetes mellitus, peripheral neuropathy, hyperlipidemia, GERD, and kidney disease. He presents to the emergency department due to concerns regarding rectal bleeding that occurred initially around 4:30 in the morning of 01/12, and occurred again later on in the day, which prompted him to come to ED for assessment. While in ED, he had a syncopal episode in the waiting room. He was then brought in for evaluation for admission, was found that he had a hemoglobin of 7.5, and is being transfused 2 units PRBCs by the ED at this time. Discharge Exam Patient's color does look much better after transfusion he is no abdominal pain he is having no melena he and his are educated on the red flags and symptoms to look for as he is released with concern for rebleeding. He will continue antibiotic therapy to complete 10-day total course Updated Medication List Medication Instructions Recorded Confirmed Type aspirin 81 mg tablet,delayed 81 mg PO DAILY 12/23/23 01/13/24 History release atenolol 50 mg tablet 50 mg PO QAM 12/23/23 01/13/24 History empagliflozin 12.5 mg-metformin 1 tab PO BID 12/23/23 01/13/24 History 1,000 mg tablet losartan 50 mg-hydrochlorothiazide 1 tab PO QAM 12/23/23 01/13/24 History 12.5 mg tablet magnesium oxide 420 mg tablet 420 mg PO BID 12/23/23 01/13/24 History minocycline 100 mg tablet 100 mg PO QAM 12/23/23 01/13/24 History omeprazole 20 mg tablet,delayed 20 mg PO QAM 12/23/23 01/13/24 History release rosuvastatin 40 mg tablet 40 mg PO QAM 12/23/23 01/13/24 History gabapentin 300 mg capsule 300 mg PO TID 01/13/24 01/13/24 History multivitamin 1 tab PO DAILY 01/13/24 01/13/24 History omega 7-yxm-qvp-fish oil 1,200 mg 1 cap PO QAM 01/13/24 01/13/24 History (144 mg-216 mg) capsule (Fish Oil) amoxicillin 875 mg-potassium 1 tab PO BID #14 tabs 01/16/24 Rx clavulanate 125 mg tablet Hospital Stay Data Consultations 01/13/24 23:48 Consult Gastroenterology Routine 01/14/24 00:17 ED Decision to Admit Stat 01/14/24 01:29 Consult Nephrology Routine Procedures Performed Operation Date: 01/15/24 16:30 Actual Procedures p Colonoscopy Hemostasis - Mike Barbosa. Case, DO Diagnostic Imagining Performed 01/13/24 21:34 CT abd pelvis wo con Stat Pending Results Patient Have Any Pending Studies at Discharge: No Discharge Instructions Given to Patient (Per Discharging Provider) please take a multivitamin twice a day for about a month to help restore your blood count please complete your antibiotics follow up with your primary care upon your return please watch for blood in your stool or dizziness, shortness of breath or fatigue, if so return to a health provider for evaluation Total Time Total Time Spent Total Time Spent (In Minutes): It required greater than 30 minutes to prepare this patient for discharge. Coding Level of Care Code 72153 INP/OBS DISCH >30 MIN Diagnoses Anemia requiring transfusions D64.9 Kidney disease, chronic, stage IV (GFR 15-29 ml/min) N18.4 Type 2 diabetes mellitus E11.9 HTN (hypertension) I10 BPH (benign prostatic hyperplasia) N40.0
== END 2024-01-16 12:58 | disposition home or self-care (01) | DRG 920 ==
LOC: ED 20:13 → EDINP 01-14 00:56 → SUATTDRO 01-14 00:56 → 2S 01-14 01:29
DX: K21.9 Gastro-esophageal reflux disease without esophagitis; E11.42 Type 2 diabetes mellitus with diabetic polyneuropathy; N13.8 Other obstructive and reflux uropathy; I12.9 Hypertensive chronic kidney disease with stage 1 through stage 4 chronic kidney disease, or unspecified chronic kidney disease; K62.5 Hemorrhage of anus and rectum; D69.6 Thrombocytopenia, unspecified; N40.1 Benign prostatic hyperplasia with lower urinary tract symptoms; N18.4 Chronic kidney disease, stage 4 (severe); N17.9 Acute kidney failure, unspecified; Z79.899 Other long term (current) drug therapy; D63.1 Anemia in chronic kidney disease; Z86.16 Personal history of COVID-19; K57.30 Diverticulosis of large intestine without perforation or abscess without bleeding; Z79.84 Long term (current) use of oral hypoglycemic drugs; Z79.82 Long term (current) use of aspirin; E78.5 Hyperlipidemia, unspecified; K63.5 Polyp of colon; E11.22 Type 2 diabetes mellitus with diabetic chronic kidney disease; K91.840 Postprocedural hemorrhage of a digestive system organ or structure following a digestive system procedure; K64.8 Other hemorrhoids; Z88.8 Allergy status to other drugs, medicaments and biological substances; D62 Acute posthemorrhagic anemia

== ENCOUNTER 2024-07-16 12:12 | Inpatient (IN) ==
[2024-07-16 14:18] LABS: Mean Corpuscular Hemoglobin 35.3 pg (25.0-34.0); Mean Corpuscular Hgb Conc 34.4 g/dL (32.0-36.0); Mean Corpuscular Volume 102.6 fL (80.0-100.0); RDW Coefficient of Variation 13.8 % (11.5-14.5); RDW Standard Deviation 51.8 fL (36.4-46.3); White Blood Count 5.53 K/ul (4.8-10.8)
[2024-07-16 14:19] LABS: Mean Platelet Volume 10.3 fL (9.4-12.4); Platelet Count 100 K/uL (130-400)
[2024-07-16 14:28] LABS: Basophils # (auto) 0.03 K/uL (0.00-0.20); Basophils % (auto) 0.5 %; Eosinophils # (auto) 0.14 K/uL (0.00-0.50); Eosinophils % (auto) 2.5 %; Immature Granulocytes # (auto) 0.04 K/uL (0.01-0.20); Immature Granulocytes % (auto) 0.7 %; Lymphocytes # (auto) 1.41 K/uL (1.20-3.40); Lymphocytes % (auto) 25.5 %; Monocytes # (auto) 0.33 K/uL (0.11-0.59); Neutrophils # (auto) 3.58 K/uL (1.40-6.50); Neutrophils % (auto) 64.8 %; Polychromasia 1+
[2024-07-16 14:29] LABS: Hematocrit (blood only) 19.5 % (42.0-52.0); Hemoglobin 6.7 g/dl (14.0-18.0)
[2024-07-16] MEDS ORDERED: SODIUM CHLORIDE 0.9% 100 ML IV PRN ×2 (14:31→19:23)
[2024-07-16] MEDS ORDERED: SODIUM CHLORIDE 0.9% 50 ML IV PRN ×2 (14:31→19:23)
[2024-07-16 14:35] LABS: Albumin Globulin Ratio 1.4 (0.9-2); Albumin Level 4.4 gm/dl (3.4-5.0); BUN Creatinine Ratio 10.2 (10-20); Bilirubin,Total 0.5 mg/dl (0.2-1.0); Calcium 9.9 mg/dl (8.6-10.3); Creatinine Clr Calc Pharmacy 12.7 ml/min; Globulin 3.2 gm/dl (2.5-4.0); Total Protein 7.6 gm/dl (6.0-8.3)
--- NOTE | 2024-07-16 14:49 | Emergency Department Note ---
Impression & Plan Generalized weakness, Symptomatic anemia, Anemia requiring transfusions, Acute kidney injury superimposed on chronic kidney disease, Elevated lactic acid level, Hypomagnesemia, Diarrhea ED Provider Note HISTORY OF PRESENT ILLNESS: Patient is a 59-year-old male presenting with generalized weakness and diarrhea. Patient reports he been feeling generally unwell for the last week or so. He reports he has had multiple episodes of watery diarrhea in the last 2 weeks. He denies any recent antibiotic use. He states that yesterday he had a nosebleed that lasted over 12 hours. He states that he is not on any anticoagulation. Reports the bleeding stopped at around 5 AM this morning. He denies any abdominal pain, nausea or vomiting. Denies any recent fevers. Reports feeling very rundown and tired all the time. He also reports feeling lightheaded and dizzy when he is walking over long distances. He denies any chest pain or shortness of breath. He reports a history of anemia and required blood transfusion 8 or 9 months ago. He states he feels similar to that. He denies any recent fevers or sick contact exposures. Denies any dysuria or hematuria. He reports he has been voiding like normal over the last week. ROS: as above PHYSICAL EXAM: Constitutional: Patient appears in no acute distress. HENT: Head: Normocephalic and atraumatic. Eyes: EOMI, PERRL Mouth/Throat: Mucous membranes moist. Neck: Trachea midline. Neck supple. Cardiovascular: RRR, No murmurs, rubs or gallops. Intact distal pulses. Pulmonary/Chest: No respiratory distress. Breath sounds clear and equal bilaterally. No wheezes or rales. Abdominal: Abdomen soft, no tenderness, rebound or guarding. Musculoskeletal: No edema, tenderness or deformity noted. Skin: Warm and dry. No rash, erythema, pallor or cyanosis Psychiatric: Appropriate mood and affect for situation. Neurological: Alert and keenly responsive. CN II-XII grossly intact, moving all extremities equally and fully. MDM: - Vitals signs stable - History obtained via patient. History as above. - Chronic conditions affecting care: HTN; HLD; DM-2; CKD stage 3 - Differential diagnoses include, but are not limited to: dehydration; anemia; pneumonia; CVA; intracranial hemorrhage; ACS; viral syndrome - Order placed for continuous cardiac monitoring. At this time, monitor showed rate of 64 bpm with normal sinus rhythm, per my interpretation. - External medical records reviewed. Nephrology office visit note dated was reviewed. Patient follows in their clinic for stage III CKD with a baseline creatinine of 1.5 mg/dL. - Patient voided in the commode on arrival to the emergency department for evaluation, so initial urine volume unable to be documented. Strict monitoring of I's and O's was ordered. - EKG interpreted by myself showed normal sinus rhythm. Rate 64 bpm. QT 412. No acute ischemic changes. - Laboratory workup interpreted by myself showed normal WBC; anemia (Hgb 6.7); thrombocytopenia (plt 100); normal PT/INR; elevated lactate (2.5); hypomagnesemia (Mg 1.3); SHAMIKA on CKD (Cr 7.52 - baseline 1.5) - VBG shows acidosis (pH 7.23) - Type and screen ordered. Patient was consented for blood and 2 units were ordered with 1 unit of PRBCs to transfuse now. - Viral respiratory panel negative - 1.5L NS ordered. - CT head wo contrast negative for acute pathology - CT abdomen/pelvis wo contrast showed no acute abnormality. Noted have mild prostatomegaly and urinary bladder wall thickening and partial distention suggestive of chronic outlet obstruction. There is also incidentally noted to have a dilated appendix measuring up to 9 mm without acute inflammatory changes. - CXR negative for pneumonia, per my interpretation - Stool studies ordered - Patient has voided in the emergency department and is not having any significant altered mental status. Do not feel that he requires emergent dialysis at this time. He likely has significant SHAMIKA secondary to his diarrheal illness as well as his 12 hours of acute epistaxis yesterday. Will admit to hospital service for further evaluation and management. - Discussion was had with immigration case manager about patient's case and need for admission - Hospitalist, Dr. Romero, consulted for admission - Patient admitted to [facility] Hospital[facility] service for further evaluation and management. I have personally spent 62 minutes of critical care time in the direct management of this patient. This includes bedside care, interpretation of diagnostic studies, and testing, discussion with consultants, patient, and family members, and other required patient management activities. This 62 minutes is in excess of all separately billable procedures. ASSESSMENT AND PLAN: Diagnosis: generalized weakness; symptomatic anemia; anemia requiring transfusions; SHAMIKA on CKD; hypomagnesemia; elevated lactic acid level; diarrhea Plan: admit Past Med/Surg History Problem List (Updated 07/16/24 @ 16:55 by Mary Quijano MD) Diarrhea (Acute) Hypomagnesemia (Acute) Elevated lactic acid level (Acute) Acute kidney injury superimposed on chronic kidney disease (Acute) Anemia requiring transfusions (Acute) Symptomatic anemia (Acute) Generalized weakness (Acute) Hyperlipidemia Type 2 diabetes mellitus Chronic kidney disease, stage 3a HTN (hypertension) Iron deficiency anemia Vitamin D deficiency Acute kidney injury Medical History BPH (benign prostatic hyperplasia) Colon polyps Thrombocytopenia Kidney disease, chronic, stage IV (GFR 15-29 ml/min) Lower gastrointestinal hemorrhage History of blood transfusion (10/2023) Neuropathy History of decreased renal function History of COVID-19 (2021) Rosacea Acid reflux Surgical History S/P colon polypectomy Strang teeth removed Social History Smoking Status: Never smoker Tobacco Type: Smokeless Tobacco (Dip or Chew) Do You Dip or Chew Tobacco: Yes; Hx Alcohol Use: Yes Alcohol type: hard liquor Hx Substance Use: No Preferred Language: Pashto Communication Ability: Effective Salon Assistant Required: No Beliefs That Will Affect Care: None Current Living Situation: Spouse Feels Safe at Home: Yes Assistive Devices: Other Allergies Allergies Allergy/AdvReac Type Severity Reaction Status Date / Time duloxetine AdvReac Intermediate SHAKES ALL Verified 03/09/24 13:59 OVER/DIZZINESS semaglutide [From Ozempic] AdvReac Unknown decreased Verified 03/09/24 13:59 kidney function Home Meds Home Medications Medication Instructions Recorded Confirmed atenolol 50 mg tablet 50 mg PO PM 12/23/23 07/16/24 minocycline 100 mg tablet 100 mg PO QAM 12/23/23 07/16/24 omeprazole 20 mg tablet,delayed 20 mg PO QAM 12/23/23 07/16/24 release rosuvastatin 40 mg tablet 40 mg PO QAM 12/23/23 07/16/24 gabapentin 300 mg capsule 300 mg PO TID 01/13/24 07/16/24 multivitamin 1 tab PO BID 01/13/24 07/16/24 omega 8-wny-rlh-fish oil 1,200 mg 1 cap PO QAM 01/13/24 07/16/24 (144 mg-216 mg) capsule (Fish Oil) losartan 100 1 tab PO DAILY 03/09/24 07/16/24 mg-hydrochlorothiazide 12.5 mg tablet Previous Rx's Medication Instructions Recorded empagliflozin 12.5 mg-metformin 1 tab PO BID #60 tabs 05/30/24 1,000 mg tablet Results & Data (ED) Vital Signs Vital Signs - 24 hr 07/16/24 12:18 07/16/24 14:58 07/16/24 15:00 Temperature 36.5 C Temperature Source Temporal Artery Scan Pulse Rate 75 Pulse Rate [Apical] 66 Pulse Rate from SpO2 Sensor Pulse Rhythm [Apical] Regular Pulse Strength [Apical] Normal Respiratory Rate 20 18 Respiratory Effort / Characteristics Non-Labored Spontaneous Respiratory Depth Normal Blood Pressure 103/63 120/71 Blood Pressure [Left Arm] 128/65 Blood Pressure Mean 76 76 Blood Pressure Mean [Left Arm] 86 Blood Pressure Position Blood Pressure Position [Left Arm] Semi-fowlers Pulse Oximetry 100 100 Oxygen Delivery Method Room Air Room Air Sepsis Recent Fever Within 48 Hours No Sepsis New/Unexplained Change in Mental Status N/A Sepsis Action Taken by Nursing No Action Required 07/16/24 15:03 07/16/24 15:11 07/16/24 15:15 Temperature Temperature Source Pulse Rate 67 66 69 Pulse Rate [Apical] Pulse Rate from SpO2 Sensor Pulse Rhythm [Apical] Pulse Strength [Apical] Respiratory Rate 16 18 Respiratory Effort / Characteristics Respiratory Depth Blood Pressure Blood Pressure [Left Arm] Blood Pressure Mean Blood Pressure Mean [Left Arm] Blood Pressure Position Blood Pressure Position [Left Arm] Pulse Oximetry Oxygen Delivery Method Sepsis Recent Fever Within 48 Hours Sepsis New/Unexplained Change in Mental Status Sepsis Action Taken by Nursing 07/16/24 15:30 07/16/24 15:36 07/16/24 16:00 Temperature Temperature Source Pulse Rate 66 Pulse Rate [Apical] Pulse Rate from SpO2 Sensor Pulse Rhythm [Apical] Pulse Strength [Apical] Respiratory Rate 17 Respiratory Effort / Characteristics Respiratory Depth Blood Pressure 125/65 115/64 Blood Pressure [Left Arm] Blood Pressure Mean 95 95 Blood Pressure Mean [Left Arm] Blood Pressure Position Blood Pressure Position [Left Arm] Pulse Oximetry Oxygen Delivery Method Sepsis Recent Fever Within 48 Hours Sepsis New/Unexplained Change in Mental Status Sepsis Action Taken by Nursing 07/16/24 16:00 07/16/24 16:15 07/16/24 16:15 Temperature Temperature Source Pulse Rate 64 65 Pulse Rate [Apical] Pulse Rate from SpO2 Sensor 65 Pulse Rhythm [Apical] Pulse Strength [Apical] Respiratory Rate 14 15 Respiratory Effort / Characteristics Respiratory Depth Blood Pressure 124/60 Blood Pressure [Left Arm] Blood Pressure Mean 82 Blood Pressure Mean [Left Arm] Blood Pressure Position Blood Pressure Position [Left Arm] Pulse Oximetry 100 Oxygen Delivery Method Sepsis Recent Fever Within 48 Hours Sepsis New/Unexplained Change in Mental Status Sepsis Action Taken by Nursing 07/16/24 16:16 07/16/24 16:32 Temperature 36.7 C 37.0 C Temperature Source Oral Oral Pulse Rate 66 64 Pulse Rate [Apical] Pulse Rate from SpO2 Sensor Pulse Rhythm [Apical] Pulse Strength [Apical] Respiratory Rate 17 22 Respiratory Effort / Characteristics Respiratory Depth Blood Pressure 124/60 115/63 Blood Pressure [Left Arm] Blood Pressure Mean 81 80 Blood Pressure Mean [Left Arm] Blood Pressure Position Lying Lying Blood Pressure Position [Left Arm] Pulse Oximetry 100 100 Oxygen Delivery Method Sepsis Recent Fever Within 48 Hours Sepsis New/Unexplained Change in Mental Status Sepsis Action Taken by Nursing Laboratory Data 07/16/24 13:27 07/16/24 13:27 Lab Results 07/16/24 07/16/24 Range/Units 13:27 14:57 WBC 5.53 (4.8-10.8) K/ul RBC 1.90 L (4.70-6.10) M/uL Hgb 6.7 L* (14.0-18.0) g/dl Hct 19.5 L* (42.0-52.0) % MCV 102.6 H (80.0-100.0) fL MCH 35.3 H (25.0-34.0) pg MCHC 34.4 (32.0-36.0) g/dL RDW Std Deviation 51.8 H (36.4-46.3) fL RDW Coeff of Liss 13.8 (11.5-14.5) % Plt Count 100 L (130-400) K/uL MPV 10.3 (9.4-12.4) fL Immature Gran % (Auto) 0.7 % Neut % (Auto) 64.8 % Lymph % (Auto) 25.5 % [place] % (Auto) 6.0 % Eos % (Auto) 2.5 % Baso % (Auto) 0.5 % Neut # (Auto) 3.58 (1.40-6.50) K/uL Lymph # (Auto) 1.41 (1.20-3.40) K/uL [place] # (Auto) 0.33 (0.11-0.59) K/uL Eos # (Auto) 0.14 (0.00-0.50) K/uL Baso # (Auto) 0.03 (0.00-0.20) K/uL Immature Gran # (Auto) 0.04 (0.01-0.20) K/uL Polychromasia 1+ PT 11.0 (9.0-12.0) Seconds INR 1.0 (0.9-1.1) VBG pH 7.23 L (7.36-7.41) VBG pCO2 49 (38-50) mmHg VBG pO2 < 20 mmHg VBG HCO3 21 mmol/L VBG O2 Saturation < 60.0 % VBG Base Excess -6.7 mEq/L Sodium 139 (136-145) mmol/L Potassium 5.0 (3.5-5.1) mmol/L Chloride 108 H (98-107) mmol/L Carbon Dioxide 18 L (21-32) mmol/L Anion Gap 13 H (3-11) BUN 77 H (6-23) mg/dl Creatinine 7.52 H* (0.6-1.4) mg/dl Est Cr Clr Drug Dosing 12.7 ml/min eGFR 7.61 BUN/Creatinine Ratio 10.2 (10-20) Glucose 105 H (70-99(Fasting)) mg/dl Lactate 2.5 H* (0.4-2.0) mmol/L Calcium 9.9 (8.6-10.3) mg/dl Magnesium 1.3 L (1.7-2.4) mg/dl Unsaturated IBC 133 L (155-355) mcg/dl Ferritin 365.9 (8-388) ng/ml Total Bilirubin 0.5 (0.2-1.0) mg/dl AST 28 (13-39) U/L ALT 20 (7-52) U/L Alkaline Phosphatase 54 (34-104) U/L Troponin I High Sens 11.5 (0-20) pg/ml Total Protein 7.6 (6.0-8.3) gm/dl Albumin 4.4 (3.4-5.0) gm/dl Globulin 3.2 (2.5-4.0) gm/dl Albumin/Globulin Ratio 1.4 (0.9-2) Adenovirus (PCR) Not Detected (NotDetected) B. pertussis DNA (PCR) Not Detected (NotDetected) B.parapertussis DNA PCR Not Detected (NotDetected) C. pneumoniae DNA (PCR) Not Detected (NotDetected) Coronavirus OC43 (PCR) Not Detected (NotDetected) Coronavirus HKU1 (PCR) Not Detected (NotDetected) Coronavirus 229E (PCR) Not Detected (NotDetected) SARS-CoV-2 (PCR) Not Detected (NotDetected) Coronavirus NL63 (PCR) Not Detected (NotDetected) Human Metapneumovir PCR Not Detected (NotDetected) Influenza Type A (PCR) Not Detected (NotDetected) Influenza Type B (PCR) Not Detected (NotDetected) M. pneumoniae (PCR) Not Detected (NotDetected) Parainfluenza 1 (PCR) Not Detected (NotDetected) Parainfluenza 2 (PCR) Not Detected (NotDetected) Parainfluenza 3 (PCR) Not Detected (NotDetected) Parainfluenza 4 (PCR) Not Detected (NotDetected) RSV (PCR) Not Detected (NotDetected) Entero/Rhino (PCR) Not Detected (NotDetected) Blood Type A Positive Antibody Screen NEGATIVE Crossmatch See Detail Administered Medications Discontinued Medications Sodium Chloride (Nss) 1,000 mls @ 999 mls/hr IV .Q1H1M ONE Stop: 07/16/24 15:37 Last Admin: 07/16/24 15:12 Dose: 999 mls/hr Documented By: VIN Imaging Data Radiologist's Impression: Head CT 07/16/24 14:24 CT head/brain wo con CLINICAL HISTORY: weakness; dizziness. TECHNIQUE: Multiple axial CT images of the head were obtained without contrast. A dose lowering technique was utilized adhering to the principles of ALARA. CT DOSE: 624 COMPARISON: None FINDINGS: No intracranial hemorrhage seen. No mass effect, midline shift, or hydrocephalus. No skull fracture seen. Visualized paranasal sinuses and mastoid air cells are clear. IMPRESSION: No acute findings. ACT 112: Negative or not required by law. The above report was generated using voice recognition software. It may contain grammatical, syntax or spelling errors. Electronically signed by: Terry Thomas M.D. 07/16/2024 3:06 PM Abdomen/Pelvis CT 07/16/24 14:[address] WITHOUT CONTRAST CT DOSE: 2061.93 mGy.cm HISTORY: Acute onset abdominal pain with renal failure and diarrhea acute renal failure TECHNIQUE: Multiaxial CT images of the abdomen and pelvis were performed without contrast. A dose lowering technique was utilized adhering to the principles of ALARA. COMPARISON STUDY: CT abdomen and pelvis 01/13/2024 FINDINGS: Cardiomegaly with extensive coronary artery calcifications. Decreased attenuation of the cardiac blood pool seen just above anemia. No acute lower thoracic abnormality. No pneumothorax or pleural effusion. The unenhanced spleen, pancreas, gallbladder and adrenal glands are unremarkable. Hepatic steatosis with possible early cirrhosis. Moderate nonspecific symmetric bilateral perinephric stranding. No urolithiasis or hydronephrosis. Mild prostatomegaly. Urinary bladder wall thickening with partial distention. Atherosclerosis of the aorta without aneurysm. No pathologically enlarged lymph nodes. No bowel obstruction or bowel wall thickening. Colonic diverticulosis without acute diverticulitis. Probable endoscopy clip of the distal descending colon. The appendix measures up to approximately 9 mm and is air-filled, previously 6 L. No acute periappendiceal inflammatory changes. Tiny fat filled umbilical hernia. Unchanged heterogeneous appearance of the osseous structures. No acute fracture. IMPRESSION: 1. No renal or ureteral calculi or hydronephrosis. 2. Mild prostamegaly with urinary bladder wall thickening and partial distention suggestive of chronic outlet obstruction. Correlate with urinalysis. 3. Nonspecific bilateral perinephric stranding. 4. Colonic diverticulosis without acute diverticulitis. 5. Dilated appendix measuring up to 9 mm without acute inflammatory changes. This finding represents a change from the prior CT, however acute appendicitis considered unlikely. Correlate clinically. ACT 112: Negative or not required by law. The above report was generated using voice recognition software. It may contain grammatical, syntax or spelling errors. Electronically signed by: Darrin Robertson M.D. 07/16/2024 3:11 PM Discharge Plan Visit Data Chief Complaint: Flu Like Symptoms Stated Complaint: FATIGUE, DIARRHEA, DEHYDRATION, NOSE BLEED/14HRS ED Provider: Mary Quijano Discharge Problem: Generalized weakness, Symptomatic anemia, Anemia requiring transfusions, Acute kidney injury superimposed on chronic kidney disease, Elevated lactic acid level, Hypomagnesemia, Diarrhea Forms Stand Alone Forms: [facility] Prescriptions Prescriptions: No Action empagliflozin-metformin 12.5-1,000 mg tablet 1 tab PO BID Qty: 60 3RF losartan-hydrochlorothiazide 100-12.5 mg tablet 1 tab PO DAILY multivitamin Tablet 1 tab PO BID gabapentin 300 mg Capsule 300 mg PO TID omega 2-jzu-gdr-fish oil [Fish Oil] 1,200 (144-216) mg Capsule 1 cap PO QAM atenolol 50 mg Tablet 50 mg PO PM minocycline 100 mg Tablet 100 mg PO QAM rosuvastatin 40 mg Tablet 40 mg PO QAM omeprazole 20 mg Tablet,Delayed Release (Dr/Ec) 20 mg PO QAM Referrals Referrals: Harini Rivera, FARHANA [Primary Care Provider] -
--- NOTE | 2024-07-16 15:07 | CT Scan Report ---
CT head/brain wo con CLINICAL HISTORY: weakness; dizziness. TECHNIQUE: Multiple axial CT images of the head were obtained without contrast. A dose lowering tech nique was utilized adhering to the principles of ALARA. CT DOSE: 624 COMPARISON: None FINDINGS: No intracranial hemorrhage seen. No mass effect, midline shift, or hydrocephalus. No skull fracture seen. Visualized paranasal sinuses and mastoid air cells are clear. IMPRESSION: No acute findings. ACT 112: Negative or not required by law. The above report was generated using voice recognition software. It may contain grammatical, syntax o r spelling errors. Electronically signed by: Terry Thomas M.D. 07/16/2024 3:06 PM
[2024-07-16 15:09] LABS: Base Excess VBG -6.7 mEq/L; HCO3 VBG 21 mmol/L; Oxygen Saturation VBG < 60.0 %; PCO2 VBG 49 mmHg (38-50); PO2 VBG < 20 mmHg; pH VBG 7.23 (7.36-7.41)
[2024-07-16] MEDS: SODIUM CHLORIDE 0.9% 1,000 ML IV ONE (15:12)
--- NOTE | 2024-07-16 15:12 | CT Scan Report ---
ABDOMEN AND PELVIS CT WITHOUT CONTRAST CT DOSE: 2061.93 mGy.cm HISTORY: Acute onset abdominal pain with renal failure and diarrhea acute renal failure TECHNIQUE: Multiaxial CT images of the abdomen and pelvis were performed without contrast. A dose lo wering technique was utilized adhering to the principles of ALARA. COMPARISON STUDY: CT abdomen and pelvis 01/13/2024 FINDINGS: Cardiomegaly with extensive coronary artery calcifications. Decreased attenuation of the ca rdiac blood pool seen just above anemia. No acute lower thoracic abnormality. No pneumothorax or pleu ral effusion. The unenhanced spleen, pancreas, gallbladder and adrenal glands are unremarkable. Hepatic steatosis w ith possible early cirrhosis. Moderate nonspecific symmetric bilateral perinephric stranding. No urol ithiasis or hydronephrosis. Mild prostatomegaly. Urinary bladder wall thickening with partial distent ion. Atherosclerosis of the aorta without aneurysm. No pathologically enlarged lymph nodes. No bowel obstruction or bowel wall thickening. Colonic diverticulosis without acute diverticulitis. P robable endoscopy clip of the distal descending colon. The appendix measures up to approximately 9 mm and is air-filled, previously 6 L. No acute periappendiceal inflammatory changes. Tiny fat filled um bilical hernia. Unchanged heterogeneous appearance of the osseous structures. No acute fracture. IMPRESSION: 1. No renal or ureteral calculi or hydronephrosis. 2. Mild prostamegaly with urinary bladder wall thickening and partial distention suggestive of chroni c outlet obstruction. Correlate with urinalysis. 3. Nonspecific bilateral perinephric stranding. 4. Colonic diverticulosis without acute diverticulitis. 5. Dilated appendix measuring up to 9 mm without acute inflammatory changes. This finding represents a change from the prior CT, however acute appendicitis considered unlikely. Correlate clinically. ACT 112: Negative or not required by law. The above report was generated using voice recognition software. It may contain grammatical, syntax o r spelling errors. Electronically signed by: Darrin Robertson M.D. 07/16/2024 3:11 PM
[2024-07-16 15:28] LABS: Magnesium 1.3 mg/dl (1.7-2.4)
[2024-07-16 15:35] LABS: Troponin I High Sensitivity 11.5 pg/ml (0-20)
[2024-07-16 15:49] LABS: Ferritin 365.9 ng/ml (8-388)
[2024-07-16 16:13] LABS: Adenovirus PCR Not Detected (NotDetected); Bordetella parapertussis PCR Not Detected (NotDetected); Bordetella pertussis PCR Not Detected (NotDetected); Chlamydia pneumoniae PCR Not Detected (NotDetected); Coronavirus 229E PCR Not Detected (NotDetected); Coronavirus CoV-2 (COVID19)PCR Not Detected (NotDetected); Coronavirus HKU1 PCR Not Detected (NotDetected); Coronavirus NL63 PCR Not Detected (NotDetected); Coronavirus OC43PCR Not Detected (NotDetected); Human Metapneumovirus PCR Not Detected (NotDetected); Influenza A PCR Not Detected (NotDetected); Influenza B PCR Not Detected (NotDetected); Mycoplasma pneumoniae PCR Not Detected (NotDetected); Parainfluenza Virus 1 PCR Not Detected (NotDetected); Parainfluenza Virus 2 PCR Not Detected (NotDetected); Parainfluenza Virus 3 PCR Not Detected (NotDetected); Parainfluenza Virus 4 PCR Not Detected (NotDetected); Respiratory Syncytial VirusPCR Not Detected (NotDetected); Rhinovirus/Enterovirus PCR Not Detected (NotDetected)
--- NOTE | 2024-07-16 16:13 | History & Physical Report ---
Date of Service July 16, 2024 Assessment & Plan (1) Acute renal failure: (2) Acute blood loss anemia: (3) Diarrhea: (4) Hypomagnesemia: Plan Jimenez is a 59-year-old male with PMH of CKD, iron deficiency anemia, HTN, T2DM, and HLD. He presented on 07/16 for generalized weakness, lightheadedness, and diarrhea x 2 week. Patient reports his stool has been liquidy for the past 2 weeks, but he denies any bright red blood in the stool or melena. He also had an episode of nosebleed yesterday that lasted approximately 12 hours. #Acute on chronic kidney injury BUN 77, creatinine 7.52 (baseline around 2.8) Avoid nephrotoxic agents where possible Nephrology consult appreciated Potassium is WNL at 5.0 on arrival and patient reports he is currently producing urine Do not feel the need for emergent dialysis at this time A/P CT revealed nonspecific bilateral perinephric stranding, as well as chronic outlet obstruction from prostatomegaly Suspect this is prerenal/hypoperfusion of the kidneys NSS 1000 L IV bolus x 1 in the ED Will plan to continue IVF resuscitation after patient receives blood transfusion Trend BMP #Acute blood loss anemia Hgb 6.7 on arrival Patient does have h/o blood transfusion x 2 Patient reports that he had a blood transfusion 8 to 9 months ago, with a #5 because Additionally, he reports that he had an episode of epistaxis yesterday for approximately 12 hours Reticulocyte count ordered, pending Hematology consult ordered, pending; ?MDS Not currently on blood thinners MCV elevated at 102.6 B12/folate ordered, pending 2u pRBCs ordered for transfusion Hemoccult all stools Trend H&H #Severe dehydration Elevated lactate at 2.5; suspect dehydration/hypoperfusion as the cause of end- organ damage Hgb transfusion threshold elevated to <8.0 #Diarrhea C. difficile/PCR stool ordered, pending #Hypomagnesemia Magnesium 1.3 on arrival Patient was previously on magnesium supplementation, as he thought it might be causing his diarrhea Suspect current hypomagnesemia is due to ongoing diarrhea Magnesium sulfate 1 g IV x 2 Trend mag #T2DM Last A1c at 6.0% on 06/29/2024 Hold empagliflozin Will defer Lantus in the setting of acute renal failure SSI; with target BSG range 110-140mg/dL, CF 50, carb ratio 15 Clear liquid diet for now, then advance to T2DM diet as tolerated BSG ACHS Adjust regimen as needed Disposition: Admit to PCU telemetry DNR/DNI Clear liquid diet VTE PPx: Hold chemical DVT PPx in setting of acute blood loss anemia; SCDs History of Present Illness Chief Complaint: Lightheadedness, diarrhea Primary Care Provider: Harini Rivera PA-C Jimenez is a 59-year-old male with PMH of CKD, iron deficiency anemia, HTN, T2DM, and HLD. He presented on 07/16 for generalized weakness, lightheadedness, and diarrhea x 2 week. Patient reports his stool has been liquidy for the past 2 weeks, but he denies any bright red blood in the stool or melena. He also had an episode of nosebleed yesterday that lasted approximately 12 hours. The bleeding started yesterday around 5 PM, and lasted until 5 AM this morning. Patient did not take any additional medications for the bleeding, but did not stuff his nose with cotton balls. Epistaxis came on unsolicited; he denies any trauma, reports he just blew his nose and it started to bleed. No family history of bleeding disorders to his knowledge. Patient took all of his regular morning medicines today; no recent change in medications. He manages his own medicine at home. He takes minocycline for his rosacea, but reports no other antibiotic use. Additional symptoms have included lightheadedness and feeling off balance, and patient reports that he did fall approximately 10 days ago and glanced his head off the end of a table. He does have history of 2 prior blood transfusions: 1 occurred at the [facility] 8 to 9 months back, and he is unsure of the cause. Another occurred in January 2024 after he had a routine colonoscopy and polyp removal that led to a lower GI bleed. Patient reports he is not currently on iron supplementation. He was previously on magnesium supplementation BID, but stopped taking it due to ongoing diarrhea. Patient denies smoking or tobacco use. He does endorse alcohol use, reports he had a double scotch last night, and reports he drinks alcohol 1-2 times per week. Patient reports he has had issues with his kidneys for the past 5 to 6 years. He denies any prior history of kidney stones. He reports he is still producing urine. Patient's vitals are stable at time of admission. ED course: NSS 1000 L IV 2u pRBCs ordered for transfusion ROS: Patient endorses generalized fatigue, liquidy diarrhea, lightheadedness, and feeling off balance. Patient denies fever, chills, night sweats, syncope, chest pain, pleuritic CP, cough, SOB, abdominal pain, N/V, BRB in stool, burning with induration, or numbness or tingling in arms or legs. Allergies Allergy/AdvReac Type Severity Reaction Status Date / Time duloxetine AdvReac Intermediate SHAKES ALL Verified 03/09/24 13:59 OVER/DIZZINESS semaglutide [From Ozempic] AdvReac Unknown decreased Verified 03/09/24 13:59 kidney function Home Medications Medication Instructions Recorded Confirmed Type atenolol 50 mg tablet 50 mg PO PM 12/23/23 07/16/24 History minocycline 100 mg tablet 100 mg PO QAM 12/23/23 07/16/24 History omeprazole 20 mg tablet,delayed 20 mg PO QAM 12/23/23 07/16/24 History release rosuvastatin 40 mg tablet 40 mg PO QAM 12/23/23 07/16/24 History gabapentin 300 mg capsule 300 mg PO TID 01/13/24 07/16/24 History multivitamin 1 tab PO BID 01/13/24 07/16/24 History omega 4-ouc-olk-fish oil 1,200 mg 1 cap PO QAM 01/13/24 07/16/24 History (144 mg-216 mg) capsule (Fish Oil) losartan 100 1 tab PO DAILY 03/09/24 07/16/24 History mg-hydrochlorothiazide 12.5 mg tablet empagliflozin 12.5 mg-metformin 1 tab PO BID #60 tabs 05/30/24 07/16/24 Rx 1,000 mg tablet Past Med/Surg History Problem List (Updated 07/16/24 @ 17:16 by Tay Plascencia PA-C) Acute blood loss anemia Acute renal failure Diarrhea (Acute) Hypomagnesemia (Acute) Elevated lactic acid level (Acute) Acute kidney injury superimposed on chronic kidney disease (Acute) Anemia requiring transfusions (Acute) Symptomatic anemia (Acute) Generalized weakness (Acute) Hyperlipidemia Type 2 diabetes mellitus Chronic kidney disease, stage 3a HTN (hypertension) Iron deficiency anemia Vitamin D deficiency Acute kidney injury Medical History BPH (benign prostatic hyperplasia) Colon polyps Thrombocytopenia Kidney disease, chronic, stage IV (GFR 15-29 ml/min) Lower gastrointestinal hemorrhage History of blood transfusion (10/2023) Neuropathy History of decreased renal function History of COVID-19 (2021) Rosacea Acid reflux Surgical History S/P colon polypectomy [place] teeth removed Social History Smoking Status: Former smoker Tobacco Type: Smokeless Tobacco (Dip or Chew) Do You Dip or Chew Tobacco: Yes; Hx Alcohol Use: Yes Alcohol type: hard liquor Hx Substance Use: No Preferred Language: Luxembourgish Communication Ability: Effective Caustic Room Operator Required: No Beliefs That Will Affect Care: None Current Living Situation: Spouse Other Information That Helps Us Care for You: No Feels Safe at Home: Yes Safety Concerns: Feels Safe At This Time Assistive Devices: Cane and Glasses Review of Systems Review of Systems: See HPI above Physical Exam Physical Exam: General: no acute distress; pleasant affect; non-toxic appearing; well- nourished; cooperative; SpO2 100% on RA HEENT: normocephalic, atraumatic; no scleral icterus; PERRLA; vision and hearing grossly intact Neck: supple; trachea midline Skin: Pallor; warm, dry without signs of tenting; no cyanosis; no rashes, bruising, lesions, or erythema noted CV: chest wall NTP; RRR; S1/S2 normal; no murmurs/rubs/gallops; pulses intact and symmetric at radial, DP, and PT Lungs: no acute respiratory distress; symmetrical chest wall expansion; clear breath sounds across all lung crum w/o adventitious sounds; no wheezing ABD: Soft, NTP; BS present; no rebound/guarding; no distention MSK: no tics or fasciculations; no edema noted in the LEs b/l, nonerythematous Neuro: A&Ox3; normal mood and affect; fluent speech; no focal deficits; sensation grossly intact in the LEs b/l Results & Data Results & Data Vital Signs (Past 12 Hours) Vital Signs Temp Pulse Pulse Resp BP BP Pulse Ox 07/16/24 15:11 66 07/16/24 15:03 67 16 07/16/24 15:00 120/71 07/16/24 14:58 66 18 128/65 100 07/16/24 12:18 36.5 C 75 20 103/63 100 O2 Del Method 07/16/24 15:11 07/16/24 15:03 07/16/24 15:00 07/16/24 14:58 Room Air 07/16/24 12:18 Room Air Laboratory Results Abnormal lab results 07/16/24 07/16/24 Range/Units 13:27 14:57 RBC 1.90 L (4.70-6.10) M/uL Hgb 6.7 L* (14.0-18.0) g/dl Hct 19.5 L* (42.0-52.0) % MCV 102.6 H (80.0-100.0) fL MCH 35.3 H (25.0-34.0) pg RDW Std Deviation 51.8 H (36.4-46.3) fL Plt Count 100 L (130-400) K/uL VBG pH 7.23 L (7.36-7.41) Chloride 108 H (98-107) mmol/L Carbon Dioxide 18 L (21-32) mmol/L Anion Gap 13 H (3-11) BUN 77 H (6-23) mg/dl Creatinine 7.52 H* (0.6-1.4) mg/dl Glucose 105 H (70-99(Fasting)) mg/dl Lactate 2.5 H* (0.4-2.0) mmol/L Magnesium 1.3 L (1.7-2.4) mg/dl Unsaturated IBC 133 L (155-355) mcg/dl Crossmatch See Detail Diagnostic Findings Head CT 07/16/24 14:24 CT head/brain wo con CLINICAL HISTORY: weakness; dizziness. TECHNIQUE: Multiple axial CT images of the head were obtained without contrast. A dose lowering technique was utilized adhering to the principles of ALARA. CT DOSE: 624 COMPARISON: None FINDINGS: No intracranial hemorrhage seen. No mass effect, midline shift, or hydrocephalus. No skull fracture seen. Visualized paranasal sinuses and mastoid air cells are clear. IMPRESSION: No acute findings. ACT 112: Negative or not required by law. The above report was generated using voice recognition software. It may contain grammatical, syntax or spelling errors. Electronically signed by: Terry Thomas M.D. 07/16/2024 3:06 PM Abdomen/Pelvis CT 07/16/24 14:[address] WITHOUT CONTRAST CT DOSE: 2061.93 mGy.cm HISTORY: Acute onset abdominal pain with renal failure and diarrhea acute renal failure TECHNIQUE: Multiaxial CT images of the abdomen and pelvis were performed without contrast. A dose lowering technique was utilized adhering to the principles of ALARA. COMPARISON STUDY: CT abdomen and pelvis 01/13/2024 FINDINGS: Cardiomegaly with extensive coronary artery calcifications. Decreased attenuation of the cardiac blood pool seen just above anemia. No acute lower thoracic abnormality. No pneumothorax or pleural effusion. The unenhanced spleen, pancreas, gallbladder and adrenal glands are u nremarkable. Hepatic steatosis with possible early cirrhosis. Moderate nonspecific symmetric bilateral perinephric stranding. No urolithiasis or hydronephrosis. Mild prostatomegaly. Urinary bladder wall thickening with partial distention. Atherosclerosis of the aorta without aneurysm. No pathologically enlarged lymph nodes. No bowel obstruction or bowel wall thickening. Colonic diverticulosis without acute diverticulitis. Probable endoscopy clip of the distal descending colon. The appendix measures up to approximately 9 mm and is air-filled, previously 6 L. No acute periappendiceal inflammatory changes. Tiny fat filled umbilical hernia. Unchanged heterogeneous appearance of the osseous structures. No acute fracture. IMPRESSION: 1. No renal or ureteral calculi or hydronephrosis. 2. Mild prostamegaly with urinary bladder wall thickening and partial distention suggestive of chronic outlet obstruction. Correlate with urinalysis. 3. Nonspecific bilateral perinephric stranding. 4. Colonic diverticulosis without acute diverticulitis. 5. Dilated appendix measuring up to 9 mm without acute inflammatory changes. This finding represents a change from the prior CT, however acute appendicitis considered unlikely. Correlate clinically. ACT 112: Negative or not required by law. The above report was generated using voice recognition software. It may contain grammatical, syntax or spelling errors. Electronically signed by: Darrin Robertson M.D. 07/16/2024 3:11 PM ECG Additional Comments: ECG ordered, pending Code Status & VTE Plan Code Status DNR/DNI VTE Prophylaxis Plan VTE Prophylaxis will be ordered: Yes Supervising Physician Co-Signing Physician Notes Patient seen and examined, chart reviewed, case discussed with Tay Plascencia PA-C and I agree with the assessment and plan as above except as otherwise noted Labs and images reviewed Jimenez Nunez is a 59yo M who presents with weakness, diarrhea, and fatigue x1 week. No melena/hematochezia. Baseline Cr 2.4-2.8, he has acute renal failure nonoliguric with creatinine 7.52 on admission Hgb 6.7. Has not had any GI bleeding, but does report a prolonged period of epistaxis yesterday. He is not on blood thinners. He does have a history of iron deficiency anemia. CT-A/P: bilateral perinephric stranding. Dilated appendix, although low suspicion for acute appendicitis. He does not have a leukocytosis on admission. Lactate 2.5 Troponin normal Bio fire negative UA is pending Suspect patient has prerenal acute renal failure with acute on chronic anemia precipitated with epistaxis. Clinically does not have melena/hematochezia. BUN is elevated in the setting of acute renal failure. Hemoccult all stools and continue monitor for bleeding. Patient previously had post polypectomy GI bleed in 2023. Acute on chronic anemia - Patient is not on any blood thinners. Aspirin is on hold. Transfusion threshold liberalized 8.0 given evidence of end organ ischemia. Pending 1 unit of transfusion, trend H&H Suspect acute renal failure prerenal. UA is pending. Patient has a underlying metabolic acidosis with VBG 7.23,, dioxide 18. Bicarb not currently indicated. Will start with blood product replacement and then supplement with IV FM as indicated. Repeat lactic pending initial transfusion. Patient has received 1 L NSS in the ER. Mag 1.3, repleted Nephrology consulted for acute renal failure. Patient is not anuric. EKG pending. Patient is not acutely volume overloaded, potassium is the upper range of normal and there is not indication for acute dialysis at this time. Patient does have bicytopenia with concurrent chronic anemia and thrombocytopenia. White count is lower limit of normal. Ferritin is elevated, UIBC is low, and he is not microcytic. His last B12 and folic acid levels were normal. He does have a known of acute blood loss recently but is also been intermittently and chronically anemic since December. Does have CKD. Will add peripheral smear, reticulocyte index if able to be obtained off of pretransfusion blood, and follow-up with hematology. Severe bicytopenia without chronic bleeding is potentially concerning for MDS/production failure. Otherwise agree with assessment and management as above PG Care Time/CCT Total # of Minutes Spent Total Time Spent with Patient: Total time spent is greater than 50% in coordination of care (as documented) at patient's floor/unit and/or counseling patient: Coding [place] [address] INT INP/OBS CARE 3/75MIN Patient Type Established Medical Decision Making High Complexity Diagnoses Acute renal failure N17.9 Acute blood loss anemia D62 Diarrhea R19.7 Hypomagnesemia E83.42
--- NOTE | 2024-07-16 16:53 | XRay Report ---
EXAM: Radiograph of the Chest 1 View INDICATION: Dizziness. TECHNIQUE: Frontal view of the chest. COMPARISON: No relevant prior studies available. FINDINGS: Lungs and pleural spaces: No consolidation or pulmonary edema. No pleural effusion or pneumothorax. Heart: Mild enlargement of the cardiac shadow partial accentuated by technique. Mediastinum: Normal contour. Bones/joints: Degenerative changes noted throughout the spine. No acute osseous abnormality seen. Soft tissues: No abnormality noted. No radiopaque foreign body noted. Upper abdomen: No abnormality noted. IMPRESSION: No acute cardiopulmonary disease. ACT 112: Negative or not required by law. Electronically signed by Aneta Mar 07-16-2024 4:52 PM
[2024-07-16 17:09] LABS: Reticulocyte % 1.62 % (0.50-2.00)
[2024-07-16 18:22] LABS: Folate (Folic Acid),Ser orPlas > 22.30 ng/ml (>5.38)
[2024-07-16 18:23] LABS: Vitamin B12 720 pg/ml (180-914)
[2024-07-16] MEDS ORDERED: CARBOHYDRATES FOR HYPOGLYCEMIA PO PRN (18:38)
[2024-07-16] MEDS ORDERED: DEXTROSE 50% 50 ML SYRINGE IV PRN (18:38)
[2024-07-16] MEDS ORDERED: GLUCOSE 40% GEL 15 GM TUBE PO PRN (18:38)
[2024-07-16] MEDS ORDERED: GLUCAGON FOR INJ 1 MG VIAL SQ PRN (18:38)
[2024-07-16] MEDS ORDERED: ONDANSETRON INJ 2 MG/ML 2 ML VIAL IV PRN (18:38)
[2024-07-16] MEDS ORDERED: GLUCOSE 10 TAB/TUBE PO PRN (18:38)
[2024-07-16] MEDS ORDERED: ACETAMINOPHEN 325 MG TAB PO PRN (18:38)
[2024-07-16] MEDS: MAGNESIUM SULFATE / D5W 1 GM/100 ML BAG IV SCH (18:39)
[2024-07-16 19:51] LABS: Calcium 9.1 mg/dl (8.6-10.3); Creatinine Clr Calc Pharmacy 13.3 ml/min; Potassium 4.9 mmol/L (3.5-5.1)
--- OUTSIDE RECORDS SUMMARY | 2024-07-16 21:08 | External Medical Summary | Summary of Care ---
Author Name Unknown Organization [facility] Address [address] [place] [address] Phone [phone] Care Team Providers Care Dubbing Machine Operator Name Role Phone Terry Gonsalez DO Primary Care Provider [phone] Reason for Visit * Reason Onset Date Comments Health Maintenance 06/17/2024 Encounter Details Date Type Department Care Team (Late st Contact Info) Description 06/17/2024 Telephone [facility] [address] [place] [phone] Terry Gonsalez DO [address] [place] [phone] Health Maintenance Allergies No known active allergiesdocumented as of this encounter (statuses as of 06/17/2024) Medications Cyanocobalamin (B-12) 500 MCG TABS Take by mouth. Active Multiple Vitamins-Minerals (MULTI ADULT GUMMIES) CHEW Take by mouth. Active [place]-3 Fatty Acids (FISH OIL) 1000 MG Capsule Take 1 Cap by mouth daily. 90 Cap 3 9 Active aspirin enteric coated (DOC ASPIRIN EC LOW DOSE) 81 MG TBEC Take 1 Tab by mouth daily. 90 Tab 3 9 Active Losartan Potassium-HCTZ 50-12.5 MG Oral Tablet (Hyzaar)Indicatio ns:HTN, goal below 140/90 Take 1 Tablet by mouth in the morning. 90 Tablet 1 4 Active Minocycline HCl 100 MG Oral Capsule (Minocin)Indicati ons:Rosacea Take 1 Capsule by mouth every morning. 90 Capsule 4 Active Simvastatin 20 MG Oral Tablet (Zocor)Indication s:Type 2 diabetes mellitus with hemoglobin A1c goal of less than 7.0% (HCC) Take 1 Tablet by mouth every evening. 90 Tablet 1 4 Active Gabapentin 300 MG Oral Capsule (Neurontin) Take 1 Capsule by mouth in the morning and 1 Capsule at noon and 1 Capsule before bedtime. 270 Capsule 4 Active Omeprazole 10 MG Oral Capsule Delayed Release (Prilosec)Indicat ions:Gastroesopha geal reflux disease without esophagitis Take 1 Capsule by mouth in the morning. 90 Capsule 1 4 Active Atenolol 50 MG Oral Tablet (Tenormin)Indicat ions:Essential hypertension with goal blood pressure less than 130/80 Take 1 Tablet by mouth in the morning. 90 Tablet 1 4 Active Synjardy XR 12.5-1000 MG Oral Tablet Extended Release 24 Hour (Empagliflozin-me tFORMIN HCl ER)Indications:Ty pe 2 diabetes mellitus with hemoglobin A1c goal of less than 7.0% (HCC) Take 1 Tablet by mouth daily. 90 Tablet 1 4 Active Trulicity 0.75 MG/0.5ML Subcutaneous Solution Pen-injector (Dulaglutide)Devorah cations:Type 2 diabetes mellitus with hemoglobin A1c goal of less than 7.0% (HCC) Inject 0.75 mg under the skin once a week. 6 mL 2 07/18/2023 11:37 AM EST 4 Active FreeStyle Lancets Use as directed. Use up to 4 times a day E11.9 400 Each 3 4 Active FreeStyle Lite Test In Vitro Strip (Glucose Blood) Use up to 4 times a day E11.9 400 Strip 3 4 Active FreeStyle Lite w/Device Kit Use up to 4 times a day E11.9 1 Kit 09/03/2023 11:42 AM EDT 4 Active documented as of this encounter (statuses as of 06/17/2024) Active Problems Problem Noted Date Diagnosed Date Type 2 diabetes mellitus wit h chronic kidney disease, without long-term current use of insulin 09/20/2022 Type 2 diabetes mellitus wit h chronic kidney disease and hypertension 05/18/2021 Chronic kidney disease, stage 3b 11/28/2020 Overview: Per CKD protocol Major depressive disorder, s lexie episode, in full remission 09/13/2020 Type 2 diabetes mellitus wit h microalbuminuria, without long-term current use of insulin 08/19/2019 HTN, goal below 140/90 02/17/2019 Type 2 diabetes mellitus wit h hemoglobin A1c goal of less than 7.0% 02/17/2019 Obesity, Class I, BMI 30.0-34.9 (see actual BMI) 02/17/2019 Environmental allergies 02/17/2019 Rosacea 02/17/2019 Gastroesophageal reflux disease without esophagi tis 02/17/2019 documented as of this encounter (statuses as of 06/17/2024) Immunizations Name Administration Dates Next Due Hepatitis B, 20+ yrs 02/02/2014,08/25/2013,07/28 PPD 11/13/2016 TDAP (age 10 and older)(Boostrix) 03/23/2015,06/2011 TDAP, Age 7 and older, IM (Adacel) 02/15/2012 documented as of this encounter Social History Tobacco Use Types Packs/Day Years Used Date Smoking Tobacco: Never Smokeless Tobacco: Never Alcohol Use Standard Drinks/Week Comments Not Currently 0 (1 standard drink = 0.6 oz pur e alcohol) occ PHQ-2 Answer Date Recorded PHQ Adult Total Score 0 04/16/2023 Hunger Vital Sign Answer Date Recorded Within the past 12 months, y ou worried that your food would run out before you got the money to buy more. Never true 09/21/19 23 Within the past 12 months, t he food you bought just didn't last and you didn't have money to get more. Never true 09/20/2022 Sex and Gender Information Value Date Recorded Sex Assigned at Male 02/17/2019 7:57 AM EDT Legal Sex Male 5:55 AM EST Gender Identity Male 02/17/2019 7:57 AM EDT Sexual Orientation Straight 02/17/2019 7: 57 AM EDT documented as of this encounter Miscellaneous Notes * Telephone Encounter - Gisela Malik LPN - 06/17/2024 1:33 PM EST Care Gaps Comprehensive Care Outreach Last Office/Telemedicine Visit: 04/29/2023 (in office), Visit date not found (telemedicine) Next Office Visit: Visit date not found Hemoglobin AIC Results: Lab Results Component Value Date/Time HEMOGLOBIN A1C - [facility] 6.8 (H) 09/19/2022 11:35 AM HEMOGLOBIN A1C - [facility] 6.0 (H) 10/27/2021 11:00 AM HEMOGLOBIN A1C - [facility] 6.6 (H) 09/28/2021 10:46 AM HEMOGLOBIN A1C - [facility] 5.8 (H) 08/10/2019 02:53 PM BP Readings from Last 1 Encounters: 04/29/23 130/82 Reviewed Health Maintenance below: Health Maintenance Topic Date Due Colorectal Cancer Screening 06/21/2022 Diabetic Eye Exam 10/03/2022 Albumin/Creatinine Ratio 10/03/2022 HbA1c 03/21/2023 GFR 03/21/2023 CKD HGB USE SMARTSET 55702 09/20/2023 CKD PHOS USE SMARTSET 96068 09/20/2023 B-12 09/20/2023 Diabetic Foot Exam 09/21/2023 Care Gap Outreach Action Taken: Unable to reach documented in this encounter Plan of Treatment Health Maintenance Due Date Last Done Comments HIV Screening 1978 Hepatitis C Screening 1981 Pneumococcal Vaccine: 50+ Years (1 of 2 - PCV) 1982 Colonoscopy 02/20/2008 Fecal Occult Blood Test 02/20/2008 Sigmoidoscopy 02/20/2008 Zoster Vaccines (1 of 2) 2013 *BASELINE EKG FOR HTN 02/22/2022 Cologuard 06/21/2022 06/21/2019, 12/0 02/2019, 05/24/2019, Additional history exists Colorectal Cancer Screening 06/21/2022 Albumin/Creatinine Ratio 10/03/2022 10/03/2021, 07/18 Diabetic Eye Exam 10/03/2022 10/03/2021, 09/04/2018 GFR 03/21/2023 09/19/2022, 10/14, 10/27/2021, Additional history exists HbA1c 03/21/2023 09/19/2022, 10/14, 09/28/2021, Additional history exists B-12 09/20/2023 09/19/2022, 04/0 07/2021, 08/10/2019 CKD HGB USE SMARTSET 08734 09/20/202309/19, 09/15/2021, 02/20/2018, Additional history exists CKD PHOS USE SMARTSET [id number] 09/20/2023 09/19/2022, 0 09/15/2021 Diabetic Foot Exam 09/21/2023 09/20/2022, 0 10/03/2021, 09/13/2020, Additional history exists COVID-19 Vaccine ( season) 2024 Influenza Vaccine (FLU shot) (#1) 2024 Depression Monitoring 04/16/2024 04/16/2023 DTap/Tdap Vaccines (4 - Td or Tdap) 03/23/2025 03/23/2015, 02/15/2012, 02/15/2012 Lipid Panel 09/20/2027 09/19/2022, 10/14, 09/28/2021, Additional history exists Hepatitis B Vaccine Completed 02/02/2014, 08/25/2013, 07/28/2013 HPV (Gardasil) Vaccine Aged Out No lo nger eligible based on patient's age to complete this topic MENINGOCOCCAL (MENACTRA/MENVEO) Aged Out No longer eligible based on patient's age to complete this topic documented as of this encounter Medical Devices Not on filedocumented as of this encounter Care Teams Dubbing Machine Operator Relationship Specialty Start Date End Date Terry Gonsalez DO [address] [phone] PCP - General Family Medicine 05/10/20 documented as of this encounter
[2024-07-16] MEDS: GABAPENTIN 300 MG CAP PO SCH (22:03)
[2024-07-16] MEDS: INSULIN ASPART PER UNIT CHARGE SC SCH (22:04)
[2024-07-17 00:29] LABS: BUN Creatinine Ratio 10.8 (10-20); Calcium 9.5 mg/dl (8.6-10.3); Creatinine Clr Calc Pharmacy 12.5 ml/min; Potassium 4.6 mmol/L (3.5-5.1)
[2024-07-17 01:03] LABS: Hematocrit (blood only) 23.3 % (42.0-52.0); Hemoglobin 7.9 g/dl (14.0-18.0)
--- NOTE | 2024-07-17 07:19 | Electrocardiogram Report ---
Test Reason : Blood Pressure : */* mmHG Vent. Rate : 64 BPM Atrial Rate : 64 BPM P-R Int : 144 ms QRS Dur : 96 ms QT Int : 412 ms P-R-T Axes : 13 -18 34 degrees QTcB Int : 425 ms Normal sinus rhythm Normal ECG When compared with ECG of 13-Jan-2024 20:53, No significant change was found Confirmed by Loy Smith ([id number]) on 07/17/2024 7:19:03 AM Referred By: REFERRED SELF Confirmed By: Loy Smith
--- NOTE | 2024-07-17 07:46 | Hospitalist Progress Note ---
Date of Service July 17, 2024 Assessment & Plan (1) Acute renal failure: (2) Acute blood loss anemia: (3) Diarrhea: (4) Hypomagnesemia: Plan Jimenez is a 59-year-old male with PMH of CKD, iron deficiency anemia, HTN, T2DM, and HLD. He presented on 07/16 for generalized weakness, lightheadedness, and diarrhea x 2 week. Patient reports his stool has been liquidy for the past 2 weeks, but he denies any bright red blood in the stool or melena. He also had an episode of nosebleed yesterday that lasted approximately 12 hours. # Acute nonanuric renal failure On admission creatinine 7.52, baseline around 2.8 Potassium upper limit of normal at 5.0, is not overtly volume overloaded CTA/P: Bilateral perinephric stranding, no evidence of hydro although some evidence of chronic SHEIKH Suspect prerenal with combined recent diarrhea and acute on chronic anemia. Received IVF x 1 and packed blood transfusion with normalization of pressures and lactic Nephrology following Dialysis not indicated at time of admission # Acute on chronic anemia - Acute epistaxis now resolved. Also with chronic anemia ?MDS vs ETOH suppression Hgb 6.7 on arrival - Patient does have h/o blood transfusion x 2 Patient reports that he had a blood transfusion 8 to 9 months ago, with a #5 because Additionally, he reports that he had an episode of epistaxis yesterday for approximately 12 hours Patient with chronic anemia over the last several months. Ferritin is normal, UIBC is low, B12 is normal, folate is normal. While his prolonged epistaxis yesterday does partially explain his acute anemia, unclear cause of his chronic anemia previously requiring transfusions. He is bicytopenic/thrombocytopenic at 100.Reticulated site index is 0.5, hypoproliferative potentially concerning for marrow suppression/MDS versus renal. - Also w/ 0.5 a fifth of liquor daily LIkely in part to alcohol induced marrow suppression. No transaminitis on CMP, CT-A/P with mild cirrhosis ([facility]). No evidence of cirrhotic decompensation or acute hepatitis. - [facility], is expected to have a marrow biopsy but robb snot yet have this scheduled and would like to have this done at [facility] if possible. #ETOH - fifth of scotch every other day - No recent withdrawal sx, last ETOH free period was in the hospital Jan 2024 - AWSS at risk. If signs of withdrawal we will switch to front loaded Valium protocol. - +thiamine/folic acid - Pt is interested in cutting back/stoppin gETOH especially knowing it can be contributing to his anemia - No hematochezia/melena, no epigastric pain suggestive of ulceration/gastritis on admit or reassessment #Diarrhea Stool studies were ordered but not collected as patient did not have recurrent diarrhea following admit #Hypomagnesemia 1.3 in the ER, repleted IV x 2. Recheck pending #T2DM Last A1c at 6.0% on 06/29/2024 Hold empagliflozin Will defer Lantus in the setting of acute renal failure. BSG control adequate overnight SSI; with target BSG range 110-140mg/dL, CF 50, carb ratio 15 BSG ACHS Disposition: PCU telemetry DNR/DNI Clear liquid diet VTE PPx: Hold chemical DVT PPx in setting of acute blood loss anemia; SCDs Admission and Anticipated Discharge Date Admission Date: July 16, 2024 Subjective Patient seen at the bedside with his present. clarifies additional history and is concerned about alcohol intake. Reports that he has daily alcohol intake at night, does have does report that he drinks scotch in the evenings. Typically buys this by 1/5, which lasts about 2 days. Last alcohol free. Was while he was hospitalized in January but did not have withdrawal symptoms at that time. Last drink was prior to admission. Discussed potential for marrow suppression with alcohol cytotoxicity. Does not show evidence of transaminitis on his labs and he does have some mild cirrhotic changes however these appear to be compensated and were noted on prior imaging. He does have follow-up with the [place] hematology pending, and is pending a bone marrow biopsy although would like to have this arranged performed at [facility] and this cannot be done at the [place] to the patient's knowledge. No other questions at time bedside exam Physical Exam Physical Exam: General: A&Ox3. NAD. Cooperative. HEENT: Atraumatic, normocephalic. Pulm: CTAB A&P. -wheezes, -rales, -rhonchi. Symmetrical chest rise. No increase in work of breathing. No respiratory distress. Cardiac: RRR, -mrg. Radial pulses intact and symmetrical. Abdominal: Nontender, nondistended, soft. BS present. Results & Data Results & Data Vital Signs (Past 12 Hours) Vital Signs Temp Pulse Pulse Resp BP BP Pulse Ox 07/17/24 03:18 36.8 C 59 L 16 114/61 95 07/16/24 22:57 37.0 C 56 L 16 129/69 100 07/16/24 22:23 62 07/16/24 21:41 37.0 C 60 16 145/77 H 100 07/16/24 20:47 37.1 C 64 16 134/75 100 07/16/24 20:17 36.8 C 64 16 136/76 99 07/16/24 20:17 36.8 C 64 16 136/76 99 07/16/24 20:02 36.4 C L 66 16 145/69 H 100 07/16/24 19:43 36.5 C 68 16 132/72 100 O2 Del Method 07/17/24 03:18 Room Air 07/16/24 22:57 Room Air 07/16/24 22:23 07/16/24 21:41 07/16/24 20:47 07/16/24 20:17 07/16/24 20:17 07/16/24 20:02 07/16/24 19:43 PG Care Time/CCT Total # of Minutes Spent Total Time Spent with Patient: Total time spent is greater than 50% in coordination of care (as documented) at patient's floor/unit and/or counseling patient: Coding Level of Care Code 57354 SUB INP/OBS CARE 3/50MIN Diagnoses Acute renal failure N17.9 Acute blood loss anemia D62 Diarrhea R19.7 Hypomagnesemia E83.42
[2024-07-17 08:28] LABS: Basophils # (auto) 0.01 K/uL (0.00-0.20); Basophils % (auto) 0.2 %; Eosinophils # (auto) 0.16 K/uL (0.00-0.50); Eosinophils % (auto) 3.8 %; Hemoglobin 7.8 g/dl (14.0-18.0); Immature Granulocytes # (auto) 0.02 K/uL (0.01-0.20); Immature Granulocytes % (auto) 0.5 %; Lymphocytes % (auto) 28.4 %; Mean Corpuscular Hemoglobin 32.6 pg (25.0-34.0); Mean Corpuscular Hgb Conc 33.9 g/dL (32.0-36.0); Mean Corpuscular Volume 96.2 fL (80.0-100.0); Monocytes # (auto) 0.34 K/uL (0.11-0.59); Monocytes % (auto) 8.1 %; Neutrophils # (auto) 2.49 K/uL (1.40-6.50); Platelet Count 67 K/uL (130-400); RDW Coefficient of Variation 16.2 % (11.5-14.5); RDW Standard Deviation 58.1 fL (36.4-46.3); Red Blood Count 2.39 M/uL (4.70-6.10); White Blood Count 4.22 K/ul (4.8-10.8)
[2024-07-17 08:59] LABS: BUN Creatinine Ratio 11.1 (10-20); Calcium 9.4 mg/dl (8.6-10.3); Creatinine Clr Calc Pharmacy 13.3 ml/min; Magnesium 1.7 mg/dl (1.7-2.4); Potassium 4.5 mmol/L (3.5-5.1)
[2024-07-17] MEDS ORDERED: MINOCYCLINE 100 MG PO SCH (09:00)
[2024-07-17] MEDS ORDERED: SODIUM CHLORIDE 0.9% 50 ML IV PRN (09:21)
[2024-07-17] MEDS ORDERED: SODIUM CHLORIDE 0.9% 100 ML IV PRN (09:21)
[2024-07-17] MEDS ORDERED: LORazepam 2 MG/1 ML VIAL IV PRN (09:46)
[2024-07-17] MEDS: PANTOprazole 40 MG TAB PO SCH (10:06)
[2024-07-17] MEDS: ROSUVASTATIN CALCIUM 20 MG TAB PO SCH (10:06)
[2024-07-17 10:30] LABS: RBC Morphology Unremarkable
[2024-07-17] MEDS: MAGNESIUM OXIDE 400 MG TAB PO SCH (10:45)
[2024-07-17] MEDS: FOLIC ACID 1 MG TAB PO SCH (10:45)
[2024-07-17] MEDS: THIAMINE HCL 100 MG TAB PO SCH (10:45)
--- NOTE | 2024-07-17 11:17 | Nephrology Consultation ---
Date of Consultation July 17, 2024 Assessment & Plan (1) Acute kidney injury: Non-oliguric. Clinical presentation suggests prerenal physiology from dehydration complicated by acute blood loss anemia and superimposed ATN. Electrolytes are normal. Creatinine 7.52 --> 7.15 mg/dL. Volume status is acceptable. There is no emergent indication for dialysis. Potential future indications for [employer]SEM[employer]ER were discussed. CT demonstrates prostatomegaly with some evidence of chronic bladder outlet obstruction but no concerning hydronephrosis. PVR will be documented. UA/microscopy has been requested. Additional PRBC transfusion support is being provided. Maintain a positive fluid balance. I have ordered 1 L of 1/2 NS + NaHCO3 to infuse following the PRBC transfusion. Empagliflozin, metformin, losartan, and HCTZ have been appropriately held. Rosuvastatin dose will be reduced to to 10 mg daily pending improvement in kidney function. Document strict I/O's. Repeat metabolic profile tomorrow AM. (2) CKD (chronic kidney disease): CKD IIIb-IV A2. Baseline creatinine 2.5-2.8 mg/dL. MACR 290 mcg/mg. CKD attributed to DKD and hypertension. Screening SIEP + SFL requested. Follows with Dr. Srinivasan as outpatient. Medications are appropriate for kidney function. (3) Acute blood loss anemia: PRBC transfusion support has been ordered. Prospective monitoring arranged. Iron profile will be obtained with next labs. Once Hgb stable, BAYLEE therapy will be arranged accordingly. (4) Diarrhea: (5) Type 2 diabetes mellitus: Hold SGLT2i and metformin. (6) HTN (hypertension): BP acceptable. Hold ARB and diuretics. History of Present Illness Reason for Consultation: Acute renal failure Requesting Physician: Garrick Romero MD Attending Physician: Garrick Romero MD History of Present Illness Mr. Jimenez Nunez is a 59-year-old male with chronic kidney disease, chronic anemia with iron deficiency, diabetes mellitus II, hypertension, significant history of alcohol abuse, and hyperlipidemia. I met Jimenze during a hospitalization at [facility] in January for evaluation of SHAMIKA in the setting of acute blood loss anemia following a lower GI bleed. Jimenez then saw Dr. Srinivasan in the [facility] nephrology clinic in February. He is now following with a refrigeration installer from [place] through the [place]. His refrigeration installer had described kidney function of 25-30%. Records indicate baseline CKD IIIb-IV A2. Baseline creatinine 2.5-2.8 mg/dL. MACR 290 mcg/mg. CKD has been attributed to diabetic kidney disease and hypertension. Urine has been acellular by history. [facility]. A bone marrow biopsy was recently recommended which is scheduled as an outpatient. Jimenez presented to the ER at [facility] yesterday with generalized weakness, lightheadedness, and persistent diarrhea. He reported watery diarrhea for approximately 2 weeks. Symptoms started after increasing oral magnesium supplements for chronic hypomagnesemia. He denies melena or hematochezia. He also reported a nose bleed lasting ~12 hours prior to admission. There was no history of trauma. He denies abnormal bleeding or bruising otherwise. BP has been controlled. He has required blood transfusions in the past for anemia. In January 2024, he developed a lower GI bleed following colonoscopy with polypectomy. Jimenez received 2 units of PRBC transfusion support overnight. An additional unit is being provided now. Jimenez remains non-oliguric. He is receiving IV fluids. He denies fevers or chills or abdominal pains. He does not endorse significant LUTS. CT scan demonstrated the kidneys to be unobstructed. Allergies Allergy/AdvReac Type Severity Reaction Status Date / Time duloxetine AdvReac Intermediate SHAKES ALL Verified 03/09/24 13:59 OVER/DIZZINESS semaglutide [From Ozempic] AdvReac Unknown decreased Verified 03/09/24 13:59 kidney function Home Medications Medication Instructions Recorded Confirmed Type atenolol 50 mg tablet 50 mg PO PM 12/23/23 07/16/24 History minocycline 100 mg tablet 100 mg PO QAM 12/23/23 07/16/24 History omeprazole 20 mg tablet,delayed 20 mg PO QAM 12/23/23 07/16/24 History release rosuvastatin 40 mg tablet 40 mg PO QAM 12/23/23 07/16/24 History gabapentin 300 mg capsule 300 mg PO TID 01/13/24 07/16/24 History multivitamin 1 tab PO BID 01/13/24 07/16/24 History omega 9-eic-dtv-fish oil 1,200 mg 1 cap PO QAM 01/13/24 07/16/24 History (144 mg-216 mg) capsule (Fish Oil) losartan 100 1 tab PO DAILY 03/09/24 07/16/24 History mg-hydrochlorothiazide 12.5 mg tablet empagliflozin 12.5 mg-metformin 1 tab PO BID #60 tabs 05/30/24 07/16/24 Rx 1,000 mg tablet Patient History Medical History BPH (benign prostatic hyperplasia) Colon polyps Thrombocytopenia Kidney disease, chronic, stage IV (GFR 15-29 ml/min) Lower gastrointestinal hemorrhage History of blood transfusion (10/2023) Neuropathy History of decreased renal function History of COVID-19 (2021) Rosacea Acid reflux Surgical History S/P colon polypectomy [place] teeth removed Social History Smoking Status: Former smoker Tobacco Type: Smokeless Tobacco (Dip or Chew) Do You Dip or Chew Tobacco: Yes; Hx Alcohol Use: Yes Alcohol type: hard liquor Hx Substance Use: No Preferred Language: Vietnamese Communication Ability: Effective Store Keeper Required: No Beliefs That Will Affect Care: None Current Living Situation: Spouse Other Information That Helps Us Care for You: No Feels Safe at Home: Yes Safety Concerns: Feels Safe At This Time Assistive Devices: Cane and Glasses Review of Systems Review of Systems: All systems reviewed & are unremarkable except as noted in HPI & below Results & Data Vital Signs (Past 12 Hours) Vital Signs Temp Pulse Pulse Resp BP BP Pulse Ox 07/17/24 10:32 36.9 C 81 16 141/75 H 98 07/17/24 10:17 36.7 C 62 16 135/67 98 07/17/24 10:01 36.3 C L 66 16 144/75 H 100 07/17/24 07:40 36.6 C 65 16 135/70 100 07/17/24 03:18 36.8 C 59 L 16 114/61 95 O2 Del Method 07/17/24 10:32 07/17/24 10:17 07/17/24 10:01 07/17/24 07:40 Room Air 07/17/24 03:18 Room Air Laboratory Results Laboratory Results - last 24 hr 07/16/24 07/16/24 07/16/24 13:27 14:57 17:28 WBC 5.53 RBC 1.90 L Hgb 6.7 L* Hct 19.5 L* MCV 102.6 H MCH 35.3 H MCHC 34.4 RDW Std Deviation 51.8 H RDW Coeff of Liss 13.8 Plt Count 100 L MPV 10.3 Immature Gran % (Auto) 0.7 Neut % (Auto) 64.8 Lymph % (Auto) 25.5 [place] % (Auto) 6.0 Eos % (Auto) 2.5 Baso % (Auto) 0.5 Reticulocyte % (Auto) 1.62 Neut # (Auto) 3.58 Lymph # (Auto) 1.41 [place] # (Auto) 0.33 Eos # (Auto) 0.14 Baso # (Auto) 0.03 Reticulocyte # 0.030 Immature Gran # (Auto) 0.04 RBC Morphology Polychromasia 1+ PT 11.0 INR 1.0 VBG pH 7.23 L VBG pCO2 49 VBG pO2 < 20 VBG HCO3 21 VBG O2 Saturation < 60.0 VBG Base Excess -6.7 Sodium 139 Potassium 5.0 Chloride 108 H Carbon Dioxide 18 L Anion Gap 13 H BUN 77 H Creatinine 7.52 H* Est Cr Clr Drug Dosing 12.7 eGFR 7.61 BUN/Creatinine Ratio 10.2 Glucose 105 H POC Glucose Lactate 2.5 H* 0.7 Calcium 9.9 Magnesium 1.3 L Unsaturated IBC 133 L Ferritin 365.9 Total Bilirubin 0.5 AST 28 ALT 20 Alkaline Phosphatase 54 Troponin I High Sens 11.5 Total Protein 7.6 Albumin 4.4 Globulin 3.2 Albumin/Globulin Ratio 1.4 Vitamin B12 720 Folate > 22.30 Adenovirus (PCR) Not Detected B. pertussis DNA (PCR) Not Detected B.parapertussis DNA PCR Not Detected C. pneumoniae DNA (PCR) Not Detected Coronavirus OC43 (PCR) Not Detected Coronavirus HKU1 (PCR) Not Detected Coronavirus 229E (PCR) Not Detected SARS-CoV-2 (PCR) Not Detected Coronavirus NL63 (PCR) Not Detected Human Metapneumovir PCR Not Detected Influenza Type A (PCR) Not Detected Influenza Type B (PCR) Not Detected M. pneumoniae (PCR) Not Detected Parainfluenza 1 (PCR) Not Detected Parainfluenza 2 (PCR) Not Detected Parainfluenza 3 (PCR) Not Detected Parainfluenza 4 (PCR) Not Detected RSV (PCR) Not Detected Entero/Rhino (PCR) Not Detected Blood Type A Positive Antibody Screen NEGATIVE Crossmatch See Detail 07/16/24 07/16/24 07/16/24 18:02 19:03 20:34 WBC RBC Hgb Hct MCV MCH MCHC RDW Std Deviation RDW Coeff of Liss Plt Count MPV Immature Gran % (Auto) Neut % (Auto) Lymph % (Auto) [place] % (Auto) Eos % (Auto) Baso % (Auto) Reticulocyte % (Auto) Neut # (Auto) Lymph # (Auto) [place] # (Auto) Eos # (Auto) Baso # (Auto) Reticulocyte # Immature Gran # (Auto) RBC Morphology Polychromasia PT INR VBG pH VBG pCO2 VBG pO2 VBG HCO3 VBG O2 Saturation VBG Base Excess Sodium 138 Potassium 4.9 Chloride 109 H Carbon Dioxide 19 L Anion Gap 10 BUN 79 H Creatinine 7.15 H* D Est Cr Clr Drug Dosing 13.3 eGFR 8.08 BUN/Creatinine Ratio 11.0 Glucose 99 POC Glucose 94 139 H Lactate Calcium 9.1 Magnesium Unsaturated IBC Ferritin Total Bilirubin AST ALT Alkaline Phosphatase Troponin I High Sens Total Protein Albumin Globulin Albumin/Globulin Ratio Vitamin B12 Folate Adenovirus (PCR) B. pertussis DNA (PCR) B.parapertussis DNA PCR C. pneumoniae DNA (PCR) Coronavirus OC43 (PCR) Coronavirus HKU1 (PCR) Coronavirus 229E (PCR) SARS-CoV-2 (PCR) Coronavirus NL63 (PCR) Human Metapneumovir PCR Influenza Type A (PCR) Influenza Type B (PCR) M. pneumoniae (PCR) Parainfluenza 1 (PCR) Parainfluenza 2 (PCR) Parainfluenza 3 (PCR) Parainfluenza 4 (PCR) RSV (PCR) Entero/Rhino (PCR) Blood Type Antibody Screen Crossmatch 07/16/24 07/17/24 07/17/24 23:39 07:22 07:41 WBC 4.22 L RBC 2.39 L Hgb 7.9 L 7.8 L Hct 23.3 L 23.0 L MCV 96.2 D MCH 32.6 MCHC 33.9 RDW Std Deviation 58.1 H RDW Coeff of Liss 16.2 H Plt Count 67 L MPV 10.0 Immature Gran % (Auto) 0.5 Neut % (Auto) 59.0 Lymph % (Auto) 28.4 [place] % (Auto) 8.1 Eos % (Auto) 3.8 Baso % (Auto) 0.2 Reticulocyte % (Auto) Neut # (Auto) 2.49 Lymph # (Auto) 1.20 [place] # (Auto) 0.34 Eos # (Auto) 0.16 Baso # (Auto) 0.01 Reticulocyte # Immature Gran # (Auto) 0.02 RBC Morphology Unremarkable Polychromasia PT INR VBG pH VBG pCO2 VBG pO2 VBG HCO3 VBG O2 Saturation VBG Base Excess Sodium 139 141 Potassium 4.6 4.5 Chloride 108 H 110 H Carbon Dioxide 18 L 19 L Anion Gap 13 H 12 H BUN 82 H 80 H Creatinine 7.56 H* D 7.18 H* D Est Cr Clr Drug Dosing 12.5 13.3 eGFR 7.56 8.04 BUN/Creatinine Ratio 10.8 11.1 Glucose 126 H 89 POC Glucose 98 Lactate Calcium 9.5 9.4 Magnesium 1.7 Unsaturated IBC Ferritin Total Bilirubin AST ALT Alkaline Phosphatase Troponin I High Sens Total Protein Albumin Globulin Albumin/Globulin Ratio Vitamin B12 Folate Adenovirus (PCR) B. pertussis DNA (PCR) B.parapertussis DNA PCR C. pneumoniae DNA (PCR) Coronavirus OC43 (PCR) Coronavirus HKU1 (PCR) Coronavirus 229E (PCR) SARS-CoV-2 (PCR) Coronavirus NL63 (PCR) Human Metapneumovir PCR Influenza Type A (PCR) Influenza Type B (PCR) M. pneumoniae (PCR) Parainfluenza 1 (PCR) Parainfluenza 2 (PCR) Parainfluenza 3 (PCR) Parainfluenza 4 (PCR) RSV (PCR) Entero/Rhino (PCR) Blood Type Antibody Screen Crossmatch 07/17/24 11:03 WBC RBC Hgb Hct MCV MCH MCHC RDW Std Deviation RDW Coeff of Liss Plt Count MPV Immature Gran % (Auto) Neut % (Auto) Lymph % (Auto) [place] % (Auto) Eos % (Auto) Baso % (Auto) Reticulocyte % (Auto) Neut # (Auto) Lymph # (Auto) [place] # (Auto) Eos # (Auto) Baso # (Auto) Reticulocyte # Immature Gran # (Auto) RBC Morphology Polychromasia PT INR VBG pH VBG pCO2 VBG pO2 VBG HCO3 VBG O2 Saturation VBG Base Excess Sodium Potassium Chloride Carbon Dioxide Anion Gap BUN Creatinine Est Cr Clr Drug Dosing eGFR BUN/Creatinine Ratio Glucose POC Glucose 170 H Lactate Calcium Magnesium Unsaturated IBC Ferritin Total Bilirubin AST ALT Alkaline Phosphatase Troponin I High Sens Total Protein Albumin Globulin Albumin/Globulin Ratio Vitamin B12 Folate Adenovirus (PCR) B. pertussis DNA (PCR) B.parapertussis DNA PCR C. pneumoniae DNA (PCR) Coronavirus OC43 (PCR) Coronavirus HKU1 (PCR) Coronavirus 229E (PCR) SARS-CoV-2 (PCR) Coronavirus NL63 (PCR) Human Metapneumovir PCR Influenza Type A (PCR) Influenza Type B (PCR) M. pneumoniae (PCR) Parainfluenza 1 (PCR) Parainfluenza 2 (PCR) Parainfluenza 3 (PCR) Parainfluenza 4 (PCR) RSV (PCR) Entero/Rhino (PCR) Blood Type Antibody Screen Crossmatch Diagnostic Findings ABDOMEN AND PELVIS CT WITHOUT CONTRAST COMPARISON STUDY: CT abdomen and pelvis 01/13/2024 FINDINGS: Cardiomegaly with extensive coronary artery calcifications. Decreased attenuation of the cardiac blood pool seen just above anemia. No acute lower thoracic abnormality. No pneumothorax or pleural effusion. The unenhanced spleen, pancreas, gallbladder and adrenal glands are unremarkable. Hepatic steatosis with possible early cirrhosis. Moderate nonspecific symmetric bilateral perinephric stranding. No urolithiasis or hydronephrosis. Mild prostatomegaly. Urinary bladder wall thickening with partia l distention. Atherosclerosis of the aorta without aneurysm. No pathologically enlarged lymph nodes. No bowel obstruction or bowel wall thickening. Colonic diverticulosis without acute diverticulitis. Probable endoscopy clip of the distal descending colon. The appendix measures up to approximately 9 mm and is air-filled, previously 6 L. No acute periappendiceal inflammatory changes. Tiny fat filled umbilical hernia. Unchanged heterogeneous appearance of the osseous structures. No acute fracture. IMPRESSION: 1. No renal or ureteral calculi or hydronephrosis. 2. Mild prostamegaly with urinary bladder wall thickening and partial distention suggestive of chronic outlet obstruction. Correlate with urinalysis. 3. Nonspecific bilateral perinephric stranding. 4. Colonic diverticulosis without acute diverticulitis. 5. Dilated appendix measuring up to 9 mm without acute inflammatory changes. This finding represents a change from the prior CT, however acute appendicitis considered unlikely. Correlate clinically. PG Care Time/CCT Total # of Minutes Spent Total Time Spent with Patient: Total time spent is greater than 50% in coordination of care (as documented) at patient's floor/unit and/or counseling patient: Coding Level of Care Code 29225 IN/OBS CONSULT LVL 5,80M Diagnoses Acute kidney injury N17.9 CKD (chronic kidney disease) N18.9 Acute blood loss anemia D62 Diarrhea R19.7 Type 2 diabetes mellitus E11.9 HTN (hypertension) I10
[2024-07-17] MEDS: SODIUM BICARBONATE 8.4% 75 MEQ in SODIUM CHLORIDE 0.45 % 1,000 ML IV SCH (13:05)
[2024-07-17 15:19] LABS: Hematocrit (blood only) 24.2 % (42.0-52.0); Hemoglobin 8.4 g/dl (14.0-18.0)
--- NOTE | 2024-07-17 16:42 | Oncology Consultation ---
Date of Consultation July 17, 2024 Assessment & Plan (1) Symptomatic anemia: Transfuse to maintain hemoglobin greater than 7 g/dL agree with my colleague from the [facility] that the patient needs bone marrow biopsy however that can be performed in an outpatient basis . His anemia is most likely multifactorial secondary to severe alcohol induced myelosuppression versus chronic liver disease versus a component of MDS that found on bone marrow right now he will need supportive management with blood transfusions to maintain hemoglobin close to 8 he wants to talk to his floor helper from the [facility] before proceeding with bone marrow biopsy. Plan Thank you for this interesting hematological consult. A total of 60 minutes spent in counseling, coronation care, review of prior records. Hematology will continue to follow the patient make appropriate recommendations. History of Present Illness Reason for Consultation: Severe macrocytic anemia Attending Physician: Garrick Romero MD History of Present Illness 59-year-old man who follows with my hematology colleagues in the year, presented to the [facility] ED with generalized weakness and diarrhea. He had been generally feeling unwell for the last week or so. Had been having multiple episodes of diarrhea over the last 2 weeks. Subsequently came to the [facility] ER where he underwent evaluation, but baseline his hemoglobin was 6.7 g/dL. He is currently being evaluated by my hematology colleagues through the [facility] who have recommended a bone marrow biopsy. The patient is a heavy alcohol abuser, his primary floor helper from the [facility] wants to rule out underlying myelodysplastic syndrome. Hematology has been consulted to assist in management of this patient with severe macrocytic anemia. He is currently feeling better, no fever or chills. No nausea or vomiting. No bleeding or bruising. Allergies Allergy/AdvReac Type Severity Reaction Status Date / Time duloxetine AdvReac Intermediate SHAKES ALL Verified 03/09/24 13:59 OVER/DIZZINESS semaglutide [From Ozempic] AdvReac Unknown decreased Verified 03/09/24 13:59 kidney function Home Medications Medication Instructions Recorded Confirmed Type atenolol 50 mg tablet 50 mg PO PM 12/23/23 07/16/24 History minocycline 100 mg tablet 100 mg PO QAM 12/23/23 07/16/24 History omeprazole 20 mg tablet,delayed 20 mg PO QAM 12/23/23 07/16/24 History release rosuvastatin 40 mg tablet 40 mg PO QAM 12/23/23 07/16/24 History gabapentin 300 mg capsule 300 mg PO TID 01/13/24 07/16/24 History multivitamin 1 tab PO BID 01/13/24 07/16/24 History omega 6-gtt-cvf-fish oil 1,200 mg 1 cap PO QAM 01/13/24 07/16/24 History (144 mg-216 mg) capsule (Fish Oil) losartan 100 1 tab PO DAILY 03/09/24 07/16/24 History mg-hydrochlorothiazide 12.5 mg tablet empagliflozin 12.5 mg-metformin 1 tab PO BID #60 tabs 05/30/24 07/16/24 Rx 1,000 mg tablet Patient History Medical History BPH (benign prostatic hyperplasia) Colon polyps Thrombocytopenia Kidney disease, chronic, stage IV (GFR 15-29 ml/min) Lower gastrointestinal hemorrhage History of blood transfusion (10/2023) Neuropathy History of decreased renal function History of COVID-19 (2021) Rosacea Acid reflux Surgical History S/P colon polypectomy [place] teeth removed Social History Smoking Status: Former smoker Tobacco Type: Smokeless Tobacco (Dip or Chew) Do You Dip or Chew Tobacco: Yes; Hx Alcohol Use: Yes Alcohol type: hard liquor Hx Substance Use: No Preferred Language: Kinyarwanda Communication Ability: Effective Human Resources Operations Coordinator Required: No Beliefs That Will Affect Care: None Current Living Situation: Spouse Other Information That Helps Us Care for You: No Feels Safe at Home: Yes Safety Concerns: Feels Safe At This Time Assistive Devices: Cane and Glasses Review of Systems Review of Systems: All systems reviewed & are unremarkable except as noted in HPI & below Constitutional: as per Subjective / HPI Eyes: as per Subjective / HPI Ear, Nose, Mouth, Throat: as per Subjective / HPI Respiratory: as per Subjective / HPI Cardiovascular: as per Subjective / HPI Gastrointestinal: as per Subjective / HPI Genitourinary: + as per Subjective / HPI Integumentary: as per Subjective / HPI Neurologic: as per Subjective / HPI Psychiatric: as per Subjective / HPI Physical Exam Constitutional: WD/WN, vitals as above Eyes: PERRL, conjunctivae normal, anicteric sclerae ENMT: external ear and nose normal, oropharynx normal Neck: trachea midline, no thyromegaly Respiratory: normal respiratory effort, lungs clear to auscultation Cardiovascular: RRR, no murmur, no edema Gastrointestinal (Abdomen): normal bowel sounds, soft, nontender, no hepatosplenomegaly Musculoskeletal: no cyanosis or clubbing, extremities motor strength 5/5 Skin: no rashes, warm and dry Results & Data Vital Signs (Past 12 Hours) Vital Signs Temp Pulse Pulse Resp BP BP Pulse Ox 07/17/24 15:15 37.1 C 61 18 136/75 100 07/17/24 14:17 65 07/17/24 13:44 59 L 07/17/24 13:02 36.8 C 66 18 141/83 H 100 07/17/24 12:02 36.9 C 62 18 136/83 100 07/17/24 11:02 36.8 C 62 18 151/48 H 100 07/17/24 10:32 36.9 C 81 16 141/75 H 98 07/17/24 10:17 36.7 C 62 16 135/67 98 07/17/24 10:01 36.3 C L 66 16 144/75 H 100 07/17/24 07:40 36.6 C 65 16 135/70 100 O2 Del Method 07/17/24 15:15 Room Air 07/17/24 14:17 07/17/24 13:44 07/17/24 13:02 07/17/24 12:02 07/17/24 11:02 07/17/24 10:32 07/17/24 10:17 07/17/24 10:01 07/17/24 07:40 Room Air
[2024-07-17 19:13] LABS: Appearance Urine Clear (Clear); Bacteria Urine Automated None Seen (None Seen); Bilirubin Urine Negative (Negative); Blood Urine Trace (Negative); Cast Urine Automated 0-2 /lpf (0-2); Color Urine Yellow; Epithelial Cell Urine Auto 0-2 /hpf (0-2); Glucose Urine UA 1+ (Negative); Ketones Urine Negative (Negative); Leukocyte Esterase Urine Negative (Negative); Nitrite Urine Negative (Negative); Protein Urine Trace (Negative); RBC Urine Automated 0-2 /hpf (0-2); Specific Gravity Urine 1.009 (1.000-1.030); Sperm Urine Present (None Prsent); Urobilinogen Urine Negative (Negative); WBC Urine Automated 0-5 /hpf (0-5); pH Urine 5.5 (4.5-7.5)
[2024-07-17] MEDS: GABAPENTIN 300 MG CAP PO SCH (20:10)
[2024-07-18 07:25] LABS: Basophils # (auto) 0.02 K/uL (0.00-0.20); Basophils % (auto) 0.5 %; Eosinophils # (auto) 0.12 K/uL (0.00-0.50); Eosinophils % (auto) 2.8 %; Hematocrit (blood only) 23.7 % (42.0-52.0); Hemoglobin 8.3 g/dl (14.0-18.0); Immature Granulocytes # (auto) 0.02 K/uL (0.01-0.20); Immature Granulocytes % (auto) 0.5 %; Lymphocytes # (auto) 0.99 K/uL (1.20-3.40); Lymphocytes % (auto) 23.5 %; Mean Corpuscular Hemoglobin 33.3 pg (25.0-34.0); Mean Corpuscular Volume 95.2 fL (80.0-100.0); Mean Platelet Volume 10.5 fL (9.4-12.4); Monocytes # (auto) 0.36 K/uL (0.11-0.59); Monocytes % (auto) 8.5 %; Neutrophils # (auto) 2.71 K/uL (1.40-6.50); Neutrophils % (auto) 64.2 %; Platelet Count 59 K/uL (130-400); RDW Coefficient of Variation 15.8 % (11.5-14.5); Red Blood Count 2.49 M/uL (4.70-6.10); White Blood Count 4.22 K/ul (4.8-10.8)
[2024-07-18 07:48] LABS: BUN Creatinine Ratio 11.2 (10-20); Creatinine Clr Calc Pharmacy 15.6 ml/min; Potassium 4.2 mmol/L (3.5-5.1)
[2024-07-18 08:19] LABS: Ferritin 319.8 ng/ml (8-388)
[2024-07-18] MEDS: ROSUVASTATIN CALCIUM 10 MG TAB PO SCH (08:36)
--- NOTE | 2024-07-18 11:20 | Nephrology Progress Note ---
Date of Service July 18, 2024 Assessment & Plan (1) Acute kidney injury: Plan: Non-oliguric. SHAMIKA attributed to prerenal physiology from dehydration complicated by acute blood loss anemia and superimposed ATN. Electrolytes are normal. Creatinine 7.52 --> 6.15 mg/dL. Volume status is acceptable. There is no emergent indication for dialysis. CT demonstrates prostatomegaly with some evidence of chronic bladder outlet obstruction but no concerning hydronephrosis. PVR ~200. Jimenez does not endorse significant LUTS. Tamsulosin 0.4 mg daily started today. Urine microscopy acellular. Hyaline casts noted. Continue to maintain a positive fluid balance. Additional 500 ml of 1/2 NS + NaHCO3 will be provided today. Continue to hold Empagliflozin, metformin, losartan, and HCTZ. Rosuvastatin at reduced of 10 mg daily. Document strict I/O's. Repeat metabolic profile tomorrow AM. (2) CKD (chronic kidney disease): Plan: CKD IIIb-IV A2. Baseline creatinine 2.5-2.8 mg/dL. MACR 290 mcg/mg. CKD attributed to DKD and hypertension. Screening SIEP + SFL pending. [facility] [place] [facility]. Medications are appropriate for kidney function. (3) Acute blood loss anemia: Plan: PRBC x units have been provided during the admission. Hematology consult appreciated. Bone marrow biopsy will be pursued as outpatient. BAYLEE therapy has been deferred to hematology. Tsat 19; ferritin 319 -- Venofer 300 mg IV x 1 provided today. (4) Diarrhea: (5) Type 2 diabetes mellitus: Plan: Hold SGLT2i and metformin. (6) HTN (hypertension): Plan: BP acceptable. Hold ARB and diuretics. (7) BPH (benign prostatic hyperplasia): Plan: Start tamsulosin 0.4 mg daily. Admission and Anticipated Discharge Date Admission Date: July 16, 2024 Subjective No acute events overnight. Jimenez is resting comfortably in bed this AM. He feels well. PVR documented at ~200 ml. He denies significant LUTS. He remains non-oliguric. No fluid retention or edema. Denies any diarrhea in past 24 hours. No abdominal pain. No melena or hematochezia. Tolerating clear liquids. Review of Systems Review of Systems: All systems reviewed & are unremarkable except as noted in HPI & below Physical Exam Constitutional: well developed; no acute distress Eyes: no scleral abnormality and no corneal abnormality ENMT: Mouth: no oral mucosal abnormality and oral mucous membranes not dry Neck: normal visual inspection and trachea midline Respiratory: normal respiratory effort Auscultation: lungs clear to auscultation bilaterally Cardiovascular: Rate/Rhythm: regular rate Heart Sounds: normal S1 and normal S2 Extremities: no edema Musculoskeletal: Extremities: no cyanosis and no clubbing Skin: + turgor decreased; no lesions Neurologic: Motor/Sensory: no tremor and no asterixis Psychiatric: Orientation: alert and oriented x 3 Results & Data Vital Signs (Past 12 Hours) Vital Signs Temp Pulse Pulse Resp BP Pulse Ox O2 Del Method 07/18/24 10:55 61 07/18/24 07:58 37.0 C 75 18 140/85 100 Room Air 07/18/24 03:42 36.9 C 61 16 138/84 98 Room Air Laboratory Results Laboratory Results - last 24 hr 07/16/24 07/17/24 07/17/24 14:57 15:07 16:05 WBC RBC Hgb 8.4 L Hct 24.2 L MCV MCH MCHC RDW Std Deviation RDW Coeff of Liss Plt Count MPV Immature Gran % (Auto) Neut % (Auto) Lymph % (Auto) [place] % (Auto) Eos % (Auto) Baso % (Auto) Neut # (Auto) Lymph # (Auto) [place] # (Auto) Eos # (Auto) Baso # (Auto) Immature Gran # (Auto) Sodium Potassium Chloride Carbon Dioxide Anion Gap BUN Creatinine Est Cr Clr Drug Dosing eGFR BUN/Creatinine Ratio Glucose POC Glucose 151 H Calcium Iron TIBC Transferrin Transferrin % Sat Ferritin Urine Color Urine Appearance Urine pH Ur Specific [place] Pos Urine Protein Urine Glucose (UA) Urine Ketones Urine Blood Urine Nitrite Urine Bilirubin Urine Urobilinogen Ur Leukocyte Esterase Urine WBC (Auto) Urine RBC (Auto) U Hyaline Cast (Auto) U Epithel Cells (Auto) Urine Bacteria (Auto) Urine Sperm Crossmatch See Detail 07/17/24 07/17/24 07/18/24 18:45 20:05 06:38 WBC 4.22 L RBC 2.49 L Hgb 8.3 L Hct 23.7 L MCV 95.2 MCH 33.3 MCHC 35.0 RDW Std Deviation 55.0 H RDW Coeff of Liss 15.8 H Plt Count 59 L MPV 10.5 Immature Gran % (Auto) 0.5 Neut % (Auto) 64.2 Lymph % (Auto) 23.5 [place] % (Auto) 8.5 Eos % (Auto) 2.8 Baso % (Auto) 0.5 Neut # (Auto) 2.71 Lymph # (Auto) 0.99 L [place] # (Auto) 0.36 Eos # (Auto) 0.12 Baso # (Auto) 0.02 Immature Gran # (Auto) 0.02 Sodium 140 Potassium 4.2 Chloride 108 H Carbon Dioxide 20 L Anion Gap 12 H BUN 69 H Creatinine 6.15 H* D Est Cr Clr Drug Dosing 15.6 eGFR 9.68 BUN/Creatinine Ratio 11.2 Glucose 112 H POC Glucose 138 H Calcium 9.0 Iron 50 TIBC 260 Transferrin 186 L Transferrin % Sat 19 L Ferritin 319.8 Urine Color Yellow Urine Appearance Clear Urine pH 5.5 Ur Specific [place] 1.009 Urine Protein Trace H Urine Glucose (UA) 1+ H Urine Ketones Negative Urine Blood Trace H Urine Nitrite Negative Urine Bilirubin Negative Urine Urobilinogen Negative Ur Leukocyte Esterase Negative Urine WBC (Auto) 0-5 Urine RBC (Auto) 0-2 U Hyaline Cast (Auto) 0-2 U Epithel Cells (Auto) 0-2 Urine Bacteria (Auto) None Seen Urine Sperm Present A Crossmatch 07/18/24 07/18/24 07:49 11:10 WBC RBC Hgb Hct MCV MCH MCHC RDW Std Deviation RDW Coeff of Liss Plt Count MPV Immature Gran % (Auto) Neut % (Auto) Lymph % (Auto) [place] % (Auto) Eos % (Auto) Baso % (Auto) Neut # (Auto) Lymph # (Auto) [place] # (Auto) Eos # (Auto) Baso # (Auto) Immature Gran # (Auto) Sodium Potassium Chloride Carbon Dioxide Anion Gap BUN Creatinine Est Cr Clr Drug Dosing eGFR BUN/Creatinine Ratio Glucose POC Glucose 122 H 135 H Calcium Iron TIBC Transferrin Transferrin % Sat Ferritin Urine Color Urine Appearance Urine pH Ur Specific [place] Urine Protein Urine Glucose (UA) Urine Ketones Urine Blood Urine Nitrite Urine Bilirubin Urine Urobilinogen Ur Leukocyte Esterase Urine WBC (Auto) Urine RBC (Auto) U Hyaline Cast (Auto) U Epithel Cells (Auto) Urine Bacteria (Auto) Urine Sperm Crossmatch PG Care Time/CCT Total # of Minutes Spent Total Time Spent with Patient: Total time spent is greater than 50% in coordination of care (as documented) at patient's floor/unit and/or counseling patient: Coding Level of Care Code 03525 SUB INP/OBS CARE 3/50MIN Diagnoses Acute kidney injury N17.9 CKD (chronic kidney disease) N18.9 Acute blood loss anemia D62 Diarrhea R19.7 Type 2 diabetes mellitus E11.9 HTN (hypertension) I10 BPH (benign prostatic hyperplasia) N40.0
[2024-07-18] MEDS: SODIUM BICARBONATE 8.4% 75 MEQ in SODIUM CHLORIDE 0.45 % 1,000 ML IV SCH (12:11)
[2024-07-18] MEDS: IRON SUCROSE 300 MG in SODIUM CHLORIDE 0.9% 250 ML IV ONE (12:11)
[2024-07-18] MEDS: TAMSULOSIN HCL 0.4 MG CAP PO SCH (12:12)
--- NOTE | 2024-07-18 16:35 | Hospitalist Progress Note ---
Date of Service July 18, 2024 Assessment & Plan (1) Acute renal failure: (2) Acute blood loss anemia: (3) Diarrhea: (4) Hypomagnesemia: Plan Jimenez is a 59-year-old male with PMH of CKD, iron deficiency anemia, HTN, T2DM, and HLD. He presented on 07/16 for generalized weakness, lightheadedness, and diarrhea x 2 week. Patient reports his stool has been liquidy for the past 2 weeks, but he denies any bright red blood in the stool or melena. He also had an episode of nosebleed yesterday that lasted approximately 12 hours. # Acute non-anuric renal failure On admission creatinine 7.52, baseline around 2.8 CTA/P: Bilateral perinephric stranding, no evidence of hydro although some evidence of chronic SHEIKH Suspect prerenal with combined recent diarrhea and acute on chronic anemia. Received IVF x 1 and packed blood transfusion with normalization of pressures and lactic Nephrology following. s/p bicarb gtt. Creatinine consistently downtrending, continue to follow daily. - K/volume status acceptable # Acute on chronic anemia - Acute epistaxis now resolved. Also with chronic anemia ?MDS vs ETOH suppression Hgb 6.7 on arrival - Patient does have h/o blood transfusion x 2 Patient reports that he had a blood transfusion 8 to 9 months ago, with a #5 because Additionally, he reports that he had an episode of epistaxis yesterday for approximately 12 hours Patient with chronic anemia over the last several months. Ferritin is normal, UIBC is low, B12 is normal, folate is normal. While his prolonged epistaxis yesterday does partially explain his acute anemia, unclear cause of his chronic anemia previously requiring transfusions. He is bicytopenic/thrombocytopenic at 100.Reticulated site index is 0.5, hypoproliferative potentially concerning for marrow suppression/MDS versus renal. -1/2 a fifth of liquor daily LIkely in part to alcohol induced marrow suppression. No transaminitis on CMP, CT-A/P with mild cirrhosis ([facility]). No evidence of cirrhotic decompensation or acute hepatitis. -Patient did discuss potential biopsy with [facility]. Following discussion patient prefers to [facility] and to follow-up for this there, expressed some concerns regarding local block versus procedural options. Hemoglobin stable 8.3 today. No indication for transfusion at this time - s/p 1u venofer. Tsat 19%. Ferritin 319. - EPO deferred. #ETOH - fifth of scotch every other day - No recent withdrawal sx, last ETOH free period was in the hospital Jan 2024 - AWSS at risk. If signs of withdrawal we will switch to front loaded Valium protocol. - +thiamine/folic acid - Pt is interested in cutting back/stopping ETOH especially knowing it can be contributing to his anemia - No hematochezia/melena, no epigastric pain suggestive of ulceration/gastritis on admit or reassessment Patient is 3.5 days out from his last drink with no signs of withdrawals. Patient does express extreme desire to quit and were remained sober moving forward. Did offer to provide and set up with cessation resources, patient reports he is aware of these although has not had to use them personally and has a follow-up plan and good family support which he is comfortable with. Did offer to help facilitate and discuss this plan, Naif reports he has a good plan and is comfortable with it after having extensive discussion with his yesterday and declines resources from provider/CM. #Hypomagnesemia 1.3 in the ER, repleted IV x 2. Recheck wnl #T2DM Last A1c at 6.0% on 06/29/2024 Hold empagliflozin Will defer Lantus in the setting of acute renal failure. BSG control adequate overnight SSI; with target BSG range 110-140mg/dL BSG ACHS Disposition: PCU telemetry DNR/DNI Clear liquid diet VTE PPx: Hold chemical DVT PPx in setting of acute blood loss anemia; SCDs Admission and Anticipated Discharge Date Admission Date: July 16, 2024 Subjective Seen at the bedside. No symptoms overnight. Feels well. Has been urinating regularly, does not feel that he is having any difficulty voiding or retention. Did discuss potential for bone marrow biopsy with [facility] oncology. He reports that he initially did want to pursue this here however does have concerns about this being performed under local block and after discussion with provider prefers [facility] as he had [facility] scheduled for his evaluation and bone marrow biopsy. No tachycardia, no sweating, tremors. No signs of alcohol withdrawal last drink now around 3.5 days ago No fevers or chills. Physical Exam Physical Exam: General: A&Ox3. NAD. Cooperative. HEENT: Atraumatic, normocephalic. Pulm: CTAB A&P. -wheezes, -rales, -rhonchi. Symmetrical chest rise. No increase in work of breathing. No respiratory distress. Cardiac: RRR, -mrg. Radial pulses intact and symmetrical. Abdominal: Nontender, nondistended, soft. BS present. Results & Data Results & Data Vital Signs (Past 12 Hours) Vital Signs Temp Pulse Pulse Resp BP Pulse Ox O2 Del Method 07/18/24 15:39 63 07/18/24 15:33 36.6 C 64 18 133/75 100 Room Air 07/18/24 11:15 36.9 C 59 L 18 145/84 H 99 Room Air 07/18/24 10:55 61 07/18/24 07:58 37.0 C 75 18 140/85 100 Room Air PG Care Time/CCT Total # of Minutes Spent Total Time Spent with Patient: Total time spent is greater than 50% in coordination of care (as documented) at patient's floor/unit and/or counseling patient: Coding Level of Care Code 43795 SUB INP/OBS CARE 3/50MIN Diagnoses Acute renal failure N17.9 Acute blood loss anemia D62 Diarrhea R19.7 Hypomagnesemia E83.42
[2024-07-19 09:24] LABS: Basophils # (auto) 0.02 K/uL (0.00-0.20); Basophils % (auto) 0.4 %; Eosinophils # (auto) 0.11 K/uL (0.00-0.50); Eosinophils % (auto) 2.4 %; Hematocrit (blood only) 25.2 % (42.0-52.0); Hemoglobin 8.8 g/dl (14.0-18.0); Immature Granulocytes # (auto) 0.02 K/uL (0.01-0.20); Immature Granulocytes % (auto) 0.4 %; Lymphocytes # (auto) 1.02 K/uL (1.20-3.40); Lymphocytes % (auto) 22.5 %; Mean Corpuscular Hemoglobin 33.2 pg (25.0-34.0); Mean Corpuscular Hgb Conc 34.9 g/dL (32.0-36.0); Mean Corpuscular Volume 95.1 fL (80.0-100.0); Mean Platelet Volume 10.3 fL (9.4-12.4); Monocytes # (auto) 0.39 K/uL (0.11-0.59); Monocytes % (auto) 8.6 %; Neutrophils # (auto) 2.97 K/uL (1.40-6.50); Neutrophils % (auto) 65.7 %; Platelet Count 61 K/uL (130-400); RDW Coefficient of Variation 15.7 % (11.5-14.5); RDW Standard Deviation 54.6 fL (36.4-46.3); Red Blood Count 2.65 M/uL (4.70-6.10); White Blood Count 4.53 K/ul (4.8-10.8)
[2024-07-19 09:42] LABS: BUN Creatinine Ratio 9.3 (10-20); Calcium 8.4 mg/dl (8.6-10.3); Creatinine Clr Calc Pharmacy 15.8 ml/min; Potassium 3.8 mmol/L (3.5-5.1)
--- NOTE | 2024-07-19 09:58 | Hospitalist Progress Note ---
Date of Service July 19, 2024 Assessment & Plan (1) Acute renal failure: (2) Acute blood loss anemia: (3) Diarrhea: (4) Hypomagnesemia: Plan Jimenez is a 59-year-old male with PMH of CKD, iron deficiency anemia, HTN, T2DM, and HLD. He presented on 07/16 for generalized weakness, lightheadedness, and diarrhea x 2 week. Patient reports his stool has been liquidy for the past 2 weeks, but he denies any bright red blood in the stool or melena. He also had an episode of nosebleed yesterday that lasted approximately 12 hours. # Acute non-anuric renal failure On admission creatinine 7.52, baseline around 2.8 CTA/P: Bilateral perinephric stranding, no evidence of hydro although some evidence of chronic SHEIKH Suspect prerenal with combined recent diarrhea and acute on chronic anemia. Received IVF x 1 and packed blood transfusion with normalization of pressures and lactic Nephrology following. s/p bicarb gtt. Creatinine consistently downtrending, continue to follow daily. 2/3 is 6.01. 1 L additional fluid and iron infusion are infusing. - K/volume status acceptable Continue to trend BMP daily # Acute on chronic anemia - Acute epistaxis now resolved. Also with chronic anemia ?MDS vs ETOH suppression Hgb 6.7 on arrival - Patient does have h/o blood transfusion x 2 Patient with chronic anemia over the last several months. Ferritin is normal, UIBC is low, B12 is normal, folate is normal. While his prolonged epistaxis yesterday does partially explain his acute anemia, unclear cause of his chronic anemia previously requiring transfusions. He is bicytopenic/thrombocytopenic at 100.Reticulated site index is 0.5, hypoproliferative potentially concerning for marrow suppression/MDS versus renal. -1/2 a fifth of liquor daily Likely in part to alcohol induced marrow suppress ion. No transaminitis on CMP, CT-A/P with mild cirrhosis (pre[facility] known [facility] pt [facility]). No evidence of cirrhotic decompensation or acute hepatitis. -Patient did discuss potential biopsy with [facility]. Following discussion patient prefers to [facility] and to follow-up for this there, expressed some concerns regarding local block versus procedural options. - s/p 1u venofer. Tsat 19%. Ferritin 319. Hemoglobin stable, spontaneously uptrending 2/3. - EPO deferred. #ETOH - fifth of scotch every other day - No recent withdrawal sx, last ETOH free period was in the hospital Jan 2024 - AWSS at risk. If signs of withdrawal we will switch to front loaded Valium protocol. - +thiamine/folic acid - Pt is interested in cutting back/stopping ETOH especially knowing it can be contributing to his anemia - No hematochezia/melena, no epigastric pain suggestive of ulceration/gastritis on admit or reassessment Patient is >4 days out from his last drink with no signs of withdrawal sx. Patient does express commitment to quit the miranda and remained sober moving forward. His has removed all alcohol from the house. Did offer to provide and set up with cessation resources, patient reports he is aware of these although has not had to use them personally and has a follow-up plan and good family support which he is comfortable with. Did offer to help facilitate and discuss this plan, Naif reports he has a good plan and is comfortable with it after having extensive discussion with his and declines further resources from provider/CM. #Hypomagnesemia 1.3 in the ER, repleted IV x 2. Recheck normalized #T2DM Last A1c at 6.0% on 06/29/2024 Hold empagliflozin Will defer Lantus in the setting of acute renal failure. BSG control adequate overnight SSI; with target BSG range 110-140mg/dL BSG ACHS Disposition: PCU DNR/DNI DM2 diet VTE PPx: Hold chemical DVT PPx in setting of acute blood loss anemia; SCDs Admission and Anticipated Discharge Date Admission Date: July 16, 2024 Subjective Seen at the bedside. Doing well. No complaints overnight. No overnight events. No shakes, tachycardia, tremors. Notes that he thinks he did have a little bit of headache when he first came in but this is resolved. Continuing to void. No questions or concerns at bedside. Pain is downtrending but not yet at goal Physical Exam Physical Exam: General: A&Ox3. NAD. Cooperative. HEENT: Atraumatic, normocephalic. Vision and hearing grossly intact. No pallor Pulm: Symmetrical chest rise. No increase in work of breathing. No respiratory distress. Cardiac: RRR, -mrg. Radial pulses intact and symmetrical. Extremities: No edema Results & Data Results & Data Vital Signs (Past 12 Hours) Vital Signs Temp Pulse Pulse Resp BP Pulse Ox O2 Del Method 07/19/24 07:51 36.6 C 72 18 157/81 H 100 Room Air 07/19/24 07:32 65 07/19/24 03:03 36.8 C 71 16 145/84 H 100 Room Air 07/18/24 23:03 36.5 C 68 16 149/79 H 100 Room Air 07/18/24 22:19 62 PG Care Time/CCT Total # of Minutes Spent Total Time Spent with Patient: Total time spent is greater than 50% in coordination of care (as documented) at patient's floor/unit and/or counseling patient: Coding Level of Care Code 86211 SUB INP/OBS CARE 2/35MIN Diagnoses Acute renal failure N17.9 Acute blood loss anemia D62 Diarrhea R19.7 Hypomagnesemia E83.42
--- NOTE | 2024-07-19 10:29 | Nephrology Progress Note ---
Date of Service July 19, 2024 Assessment & Plan (1) Acute kidney injury: Plan: Non-oliguric. SHAMIKA attributed to prerenal physiology from dehydration complicated by acute blood loss anemia and superimposed ATN. Electrolytes are normal. Creatinine 7.52 --> 6.0 mg/dL. Volume status is acceptable. There is no emergent indication for dialysis. CT demonstrates prostatomegaly with some evidence of chronic bladder outlet obstruction but no concerning hydronephrosis. PVR ~200-->Tamsulosin 0.4 mg daily started yesterday. Urine microscopy acellular. Hyaline casts noted. Continue to maintain a positive fluid balance. Additional 500 ml of NaCl will be provided today. Jimenez is polyuric. Additional fluids will be provided as needed to encourage a positive fluid balance. Continue to hold Empagliflozin, metformin, losartan, and HCTZ. Rosuvastatin at reduced of 10 mg daily. Document strict I/O's. Repeat metabolic profile tomorrow AM. (2) CKD (chronic kidney disease): Plan: CKD IIIb-IV A2. Baseline creatinine 2.5-2.8 mg/dL. MACR 290 mcg/mg. CKD attributed to DKD and hypertension. Screening SIEP + SFL pending. [facility] Jimenez [place] [facility] [place] post [place]. Medications are appropriate for kidney function. (3) Acute blood loss anemia: Plan: PRBC x 3 units have been provided during the admission. Hematology consult appreciated. Bone marrow biopsy will be pursued as outpatient. BAYLEE therapy has been deferred to hematology. Tsat 19; ferritin 319 -- Venofer 300 mg IV x 1 provided yesterday and an additional 300 mg IV today. (4) Diarrhea: (5) Type 2 diabetes mellitus: Plan: Hold SGLT2i and metformin. (6) HTN (hypertension): Plan: BP acceptable. Hold ARB and diuretics. (7) BPH (benign prostatic hyperplasia): Plan: Continue tamsulosin 0.4 mg daily. Admission and Anticipated Discharge Date Admission Date: July 16, 2024 Subjective No acute events overnight. Jimenez feels well. He denies fluid retention or edema. Increased urine output noted. Urine stream has also improved. Review of Systems Review of Systems: All systems reviewed & are unremarkable except as noted in HPI & below Physical Exam Constitutional: well developed; no acute distress Eyes: no scleral abnormality and no corneal abnormality ENMT: Mouth: no oral mucosal abnormality and oral mucous membranes not dry Neck: normal visual inspection and trachea midline Respiratory: normal respiratory effort Auscultation: lungs clear to auscultation bilaterally Cardiovascular: Rate/Rhythm: regular rate Heart Sounds: normal S1 and normal S2 Extremities: no edema Musculoskeletal: Extremities: no cyanosis and no clubbing Skin: + turgor decreased; no lesions Neurologic: Motor/Sensory: no tremor and no asterixis Psychiatric: Orientation: alert and oriented x 3 Results & Data Vital Signs (Past 12 Hours) Vital Signs Temp Pulse Pulse Resp BP Pulse Ox O2 Del Method 07/19/24 07:51 36.6 C 72 18 157/81 H 100 Room Air 07/19/24 07:32 65 07/19/24 03:03 36.8 C 71 16 145/84 H 100 Room Air 07/18/24 23:03 36.5 C 68 16 149/79 H 100 Room Air Laboratory Results Laboratory Results - last 24 hr 07/18/24 07/18/24 07/18/24 06:38 11:10 16:11 WBC RBC Hgb Hct MCV MCH MCHC RDW Std Deviation RDW Coeff of Liss Plt Count MPV Immature Gran % (Auto) Neut % (Auto) Lymph % (Auto) [place] % (Auto) Eos % (Auto) Baso % (Auto) Neut # (Auto) Lymph # (Auto) [place] # (Auto) Eos # (Auto) Baso # (Auto) Immature Gran # (Auto) Sodium Potassium Chloride Carbon Dioxide Anion Gap BUN Creatinine Est Cr Clr Drug Dosing eGFR BUN/Creatinine Ratio Glucose POC Glucose 135 H 140 H Calcium Total Protein (PEP) Pending Albumin (PEP) Pending Onert-4-Izseveeju Pending Ozqvy-8-Mhakmwgiy Pending Xxlp-9-Ddjetnvj Pending Trmk-9-Sqrptonl Pending Gamma Globulins Pending Monoclonal Peak 3 Pending Ser Monoclonl Protein Pending Ser Monoclonal Prot 2 Pending PEP Interpretation Pending Serum Immunofixation Pending Free [place] LC, Quant Pending Free Lambda LC, Quant Pending Free [place]/Lambda Ratio Pending 07/18/24 07/19/24 07/19/24 20:09 07:38 08:24 WBC 4.53 L RBC 2.65 L Hgb 8.8 L Hct 25.2 L MCV 95.1 MCH 33.2 MCHC 34.9 RDW Std Deviation 54.6 H RDW Coeff of Liss 15.7 H Plt Count 61 L MPV 10.3 Immature Gran % (Auto) 0.4 Neut % (Auto) 65.7 Lymph % (Auto) 22.5 [place] % (Auto) 8.6 Eos % (Auto) 2.4 Baso % (Auto) 0.4 Neut # (Auto) 2.97 Lymph # (Auto) 1.02 L [place] # (Auto) 0.39 Eos # (Auto) 0.11 Baso # (Auto) 0.02 Immature Gran # (Auto) 0.02 Sodium 138 Potassium 3.8 Chloride 104 Carbon Dioxide 23 Anion Gap 11 BUN 56 H Creatinine 6.01 H* Est Cr Clr Drug Dosing 15.8 eGFR 9.95 BUN/Creatinine Ratio 9.3 L Glucose 169 H POC Glucose 154 H 120 H Calcium 8.4 L Total Protein (PEP) Albumin (PEP) Lncxg-7-Tgrsxiofh Hbzoy-5-Wbemiwksf Tbwm-0-Agfepzhf Kzjr-6-Oiyavnch Gamma Globulins Monoclonal Peak 3 Ser Monoclonl Protein Ser Monoclonal Prot 2 PEP Interpretation Serum Immunofixation Free [place] LC, Quant Free Lambda LC, Quant Free [place]/Lambda Ratio PG Care Time/CCT Total # of Minutes Spent Total Time Spent with Patient: Total time spent is greater than 50% in coordination of care (as documented) at patient's floor/unit and/or counseling patient: Coding Level of Care Code 63326 SUB INP/OBS CARE 3/50MIN Diagnoses Acute kidney injury N17.9 CKD (chronic kidney disease) N18.9 Acute blood loss anemia D62 Diarrhea R19.7 Type 2 diabetes mellitus E11.9 HTN (hypertension) I10 BPH (benign prostatic hyperplasia) N40.0
[2024-07-19] MEDS: PLASMA-LYTE A 500 ML IV ONE (10:44)
[2024-07-19] MEDS: SODIUM CHLORIDE 0.9% 500 ML IV ONE ×2 (11:02→17:25)
[2024-07-19] MEDS: IRON SUCROSE 300 MG in SODIUM CHLORIDE 0.9% 250 ML IV ONE (11:03)
[2024-07-20 05:22] LABS: Basophils # (auto) 0.02 K/uL (0.00-0.20); Basophils % (auto) 0.6 %; Eosinophils % (auto) 2.8 %; Hematocrit (blood only) 23.4 % (42.0-52.0); Hemoglobin 8.1 g/dl (14.0-18.0); Immature Granulocytes # (auto) 0.02 K/uL (0.01-0.20); Immature Granulocytes % (auto) 0.6 %; Lymphocytes % (auto) 24.8 %; Mean Corpuscular Hemoglobin 33.1 pg (25.0-34.0); Mean Corpuscular Hgb Conc 34.6 g/dL (32.0-36.0); Mean Corpuscular Volume 95.5 fL (80.0-100.0); Mean Platelet Volume 9.8 fL (9.4-12.4); Monocytes # (auto) 0.33 K/uL (0.11-0.59); Monocytes % (auto) 9.1 %; Neutrophils # (auto) 2.26 K/uL (1.40-6.50); Neutrophils % (auto) 62.1 %; Platelet Count 57 K/uL (130-400); RDW Coefficient of Variation 15.7 % (11.5-14.5); RDW Standard Deviation 55.3 fL (36.4-46.3); Red Blood Count 2.45 M/uL (4.70-6.10); White Blood Count 3.63 K/ul (4.8-10.8)
[2024-07-20 05:31] LABS: BUN Creatinine Ratio 8.9 (10-20); Calcium 7.7 mg/dl (8.6-10.3); Creatinine Clr Calc Pharmacy 17.3 ml/min; Potassium 3.6 mmol/L (3.5-5.1)
[2024-07-20] MEDS: SODIUM CHLORIDE 0.9% 1,000 ML IV ONE (08:41)
[2024-07-20] MEDS: CALCIUM GLUCONATE 1,000 MG/60 ML BAG IV SCH (09:49)
[2024-07-20] MEDS: MAGNESIUM SULFATE / D5W 1 GM/100 ML BAG IV SCH (11:04)
--- NOTE | 2024-07-20 12:07 | Nephrology Progress Note ---
Date of Service July 20, 2024 Assessment & Plan (1) Acute kidney injury: Plan: Non-oliguric. SHAMIKA attributed to prerenal physiology from dehydration complicated by acute blood loss anemia and superimposed ATN. Electrolytes are normal. Creatinine 7.52 --> 5.52 mg/dL. Volume status is acceptable. There is no emergent indication for dialysis. Additional 1 L NS provided this AM to maintain even fluid balance. Polyuric phase of recovery is improving. PO intake is adequate. Continue to hold Empagliflozin, metformin, losartan, and HCTZ. Rosuvastatin at reduced of 10 mg daily. From a nephrology standpoint, I suspect Jimenez could be discharged home today with close outpatient follow up. A follow up BMP has been scheduled for this afternoon to closely monitor kidney function following IVF this AM. Lab orders for a BMP + CBC have been placed for as an outpatient. I have requested follow up with me in the [facility] nephrology clinic to be scheduled for next week. (2) CKD (chronic kidney disease): Plan: CKD IIIb-IV A2. Baseline creatinine 2.5-2.8 mg/dL. MACR 290 mcg/mg. CKD attributed to DKD and hypertension. Screening SIEP + SFL pending. [facility] Jimenez requested follow up in the [facility] nephrology clinic in [place] post discharge. Medications are appropriate for kidney function. (3) Acute blood loss anemia: Plan: PRBC x 3 units provided during the admission. Hematology consult completed. Bone marrow biopsy will be pursued as outpatient. BAYLEE therapy has been deferred to hematology. Tsat 19; ferritin 319 -- Venofer 300 mg IV x 2 doses provided. (4) Diarrhea: (5) Type 2 diabetes mellitus: Plan: Hold SGLT2i and metformin. (6) HTN (hypertension): Plan: BP acceptable. Hold ARB and diuretics. (7) BPH (benign prostatic hyperplasia): Plan: Continue tamsulosin 0.4 mg daily. Rx sent to [facility]. (8) Hypomagnesemia: Plan: Chronic. Aggressive IV replacement ordered this AM. Recheck this afternoon and . Admission and Anticipated Discharge Date Admission Date: July 16, 2024 Subjective No events overnight. Jimenez feels well this AM. Appetite is good. He continues to report good urine output. No fluid retention or edema. He is breathing comfortably. No melena or hematochezia. He would like to be discharged home today. Follow up with hematology is scheduled for Friday. He can have outpatient labs completed through [facility] on . Review of Systems Review of Systems: All systems reviewed & are unremarkable except as noted in HPI & below Physical Exam Constitutional: well developed; no acute distress Eyes: no scleral abnormality and no corneal abnormality ENMT: Mouth: no oral mucosal abnormality and oral mucous membranes not dry Neck: normal visual inspection and trachea midline Respiratory: normal respiratory effort Auscultation: lungs clear to auscultation bilaterally Cardiovascular: Rate/Rhythm: regular rate Heart Sounds: normal S1 and normal S2 Extremities: no edema Musculoskeletal: Extremities: no cyanosis and no clubbing Skin: + turgor decreased; no lesions Neurologic: Motor/Sensory: no tremor and no asterixis Psychiatric: Orientation: alert and oriented x 3 Results & Data Vital Signs (Past 12 Hours) Vital Signs Temp Pulse Pulse Resp BP Pulse Ox O2 Del Method 07/20/24 10:54 36.8 C 63 18 143/77 H 100 Room Air 07/20/24 08:04 36.8 C 73 19 152/84 H 100 Room Air 07/20/24 07:18 74 07/20/24 03:47 36.5 C 67 18 110/61 96 Room Air Laboratory Results Laboratory Results - last 24 hr 07/19/24 07/19/24 07/20/24 16:17 20:41 04:27 WBC 3.63 L RBC 2.45 L Hgb 8.1 L Hct 23.4 L MCV 95.5 MCH 33.1 MCHC 34.6 RDW Std Deviation 55.3 H RDW Coeff of Liss 15.7 H Plt Count 57 L MPV 9.8 Immature Gran % (Auto) 0.6 Neut % (Auto) 62.1 Lymph % (Auto) 24.8 Hart % (Auto) 9.1 Eos % (Auto) 2.8 Baso % (Auto) 0.6 Neut # (Auto) 2.26 Lymph # (Auto) 0.90 L Hart # (Auto) 0.33 Eos # (Auto) 0.10 Baso # (Auto) 0.02 Immature Gran # (Auto) 0.02 Sodium 140 Potassium 3.6 Chloride 108 H Carbon Dioxide 23 Anion Gap 9 BUN 49 H Creatinine 5.52 H* D Est Cr Clr Drug Dosing 17.3 eGFR 11.02 BUN/Creatinine Ratio 8.9 L Glucose 151 H POC Glucose 152 H 115 H Calcium 7.7 L Magnesium 1.1 L 07/20/24 07/20/24 07:16 11:12 WBC RBC Hgb Hct MCV MCH MCHC RDW Std Deviation RDW Coeff of Liss Plt Count MPV Immature Gran % (Auto) Neut % (Auto) Lymph % (Auto) Hart % (Auto) Eos % (Auto) Baso % (Auto) Neut # (Auto) Lymph # (Auto) Hart # (Auto) Eos # (Auto) Baso # (Auto) Immature Gran # (Auto) Sodium Potassium Chloride Carbon Dioxide Anion Gap BUN Creatinine Est Cr Clr Drug Dosing eGFR BUN/Creatinine Ratio Glucose POC Glucose 163 H 99 Calcium Magnesium PG Care Time/CCT Total # of Minutes Spent Total Time Spent with Patient: Total time spent is greater than 50% in coordination of care (as documented) at patient's floor/unit and/or counseling patient: Coding Level of Care Code 78744 SUB INP/OBS CARE 3/50MIN Diagnoses Acute kidney injury N17.9 CKD (chronic kidney disease) N18.9 Acute blood loss anemia D62 Diarrhea R19.7 Type 2 diabetes mellitus E11.9 HTN (hypertension) I10 BPH (benign prostatic hyperplasia) N40.0 Hypomagnesemia E83.42
[2024-07-20 15:50] VITALS: BP 132/71; PULSE 64; RESP 19; TEMP 97.9; O2SAT 99
[2024-07-20 15:51] LABS: Albumin Level 3.6 gm/dl (3.4-5.0); Calcium 8.8 mg/dl (8.6-10.3); Creatinine Clr Calc Pharmacy 20.1 ml/min; Magnesium 2.2 mg/dl (1.7-2.4); Phosphorus 2.7 mg/dl (2.5-4.9); Potassium 3.7 mmol/L (3.5-5.1)
--- NOTE | 2024-07-20 15:59 | Discharge Summary ---
Discharge Summary Date of Service July 20, 2024 Principal Dx & Hospital Course #1 = Principal Diagnosis (1) Acute renal failure: (2) Acute blood loss anemia: (3) Diarrhea: (4) Hypomagnesemia: Plan 59 years old male with PMH of DNR/DNI @ home, obesity with BMI 32.6 (height 5' 11"; weight 105.9 kg = 232.98 pounds), ongoing ETOH abuse with patient quaffing 1/5 of scotch every other day, hyperlipidemia on rosuvastatin 40mg PO qpm, rosacea on minocycline 100mg PO qam, GERD on omeprazole 20mg PO daily, BPH on flomax 0.4mg PO daily, normocytic, normochromic anemia with baseline Hb range, 7.6 - 8.7 g/dL (01/13/2024 - 01/16/2024), CKD stage III with progressively worsening creatinine range of 2.46 (01/16/2024, 5:22am) to 2.80 (06/29/2024, 12:00am), HTN on atenolol 50mg PO qpm, losartan 100mg - HCTZ 12.5mg PO daily, and non-insulin dependent DM2 with HbA1c 6.0% (06/29/2024, 12:00am), on empagliflozin 12.5mg - metformin 1000mg PO bid, who presented to [facility] ER on 07/16/2024 with complaints of generalized weakness, lightheadedness, and watery, non-bloody, non-oily diarrhea x 2 weeks. Patient also denied hematochezia or melena. Patient did report 1 episode of epistaxis lasting 12 hours on 07/15/2024. Patient was subsequently admitted to the inpatient hospitalist service @ [facility] on 07/16/2024 with the following diagnoses: 1. Acute kidney injury with admission creatinine 7.52 (07/16/2024, 1:27pm), superimposed on CKD stage III with progressively worsening creatinine range of 2.46 (01/16/2024, 5:22am) to 2.80 (06/29/2024, 12:00am). 2. Acute blood loss anemia with admission Hb 6.7 g/dL (07/16/2024, 1:27pm), superimposed on chronic normocytic, normochromic anemia with baseline Hb range, 7.6 - 8.7 g/dL (01/13/2024 - 01/16/2024). 3. Acute hypomagnesemia with admission Mg 1.3 mg/dL (07/16/2024, 2:57pm). The following medical issues were addressed while the patient remained in [facility] from 07/16/2024 to 07/20/2024: # Acute non-anuric kidney injury with admission creatinine 7.52 (07/16/2024, 1:27pm), superimposed on CKD stage III with progressively worsening creatinine range of 2.46 (01/16/2024, 5:22am) to 2.80 (06/29/2024, 12:00am). CT abd/pelvis without IV contrast (07/16/2024, 2:37pm): Bilateral perinephric stranding, no evidence of hydronephrosis. Suspect prerenal with combined recent diarrhea and acute on chronic anemia. Patient received IV fluids and 2 units of packed blood transfusion (07/15/2024, 8:50pm; 07/15/2024, 9:32pm) and 1 unit of packed RBC transfusion (07/16/2024, 2:57pm) with normalization of blood pressure and normalization of lactic acid from 2.5 mmol/L (07/16/2024, 2:57pm) to 0.7 mmol/L (07/16/2024, 5:28pm). Renal Service of Dr. Baldomero Manuel followed patient while in [facility] with recommendations that patient: a. hold OFF his home-scheduled losartan 100mg - HCTZ 12.5mg PO daily while in [facility] given potential for this medication to cause further renal embarrassment; b. lower dose of home-scheduled gabapentin 300mg PO tid to 300mg PO bid while in [facility], given potential for this medication to cause further renal embarrassment; c. lower dose of home-scheduled rosuvastatin 40mg PO qam to 10mg PO qam while in [facility], given potential for this medication to cause further renal embarrassment; d. patient was also encouraged to abstain from ETOH consumption (cf., patient quaffs 1/5 scotch every other day) as ETOH-mediated diuresis also can cause further renal embarrassment. Patient reports that he will practice ETOH abstinence on hospital discharge home on 07/20/2024. Subsequently, renal function continues to improve with progressive decline in creatinine levels from cf., creatinine 7.52 mg/dL (07/16/2024, 1:27pm). cf., creatinine 7.15 mg/dL (07/16/2024, 7:03pm). cf., creatinine 7.56 mg/dL (07/16/2024, 11:39pm). cf., creatinine 7.18 mg/dL (07/17/2024, 7:41am). cf., creatinine 6.15 mg/dL (07/18/2024, 6:38am). cf., creatinine 6.01 mg/dL (07/19/2024, 8:24am). cf., creatinine 5.52 mg/dL (07/20/2024, 4:27am). cf., creatinine 4.77 mg/dL (07/20/2024, 3:14pm). Consequently, patient was discharged back to his home on 07/20/2024 with the following conditions: a. continue to hold off his home-scheduled losartan 100mg - HCTZ 12.5mg PO daily with repeat creatinine level testing within 3-5 days of hospital discharge. b. continue gabapentin 300mg PO bid with repeat creatinine level testing within 3-5 days of hospital discharge. c. continue rosuvastatin 10mg PO qam with repeat creatinine level testing within 3-5 days of hospital discharge. To this end, patient's [facility] ([place]) received on 07/20/2024, two electronic prescriptions for: i. gabapentin 300mg PO bid, #60 tablets, no refills. ii. rosuvastatin 10mg PO qam, #30 tablets, no refills. # Acute blood loss anemia with admission Hb 6.7 g/dL (07/16/2024, 1:27pm), superimposed on chronic normocytic, normochromic anemia with baseline Hb range, 7.6 - 8.7 g/dL (01/13/2024 - 01/16/2024). - Etiology of acute blood loss anemia remains unclear; patient's solitary episode of acute epistaxis (now resolved) could have contributed to patient's acute blood loss anemia. In contrast, etiology of chronic normocytic, normochromic anemia is probably due to a combination of anemia of chronic diseases (including CKD stage III and chroic ETOH-mediated bone marrow suppression). To address acute blood loss anemia, patient received 2 units of packed blood transfusion (07/15/2024, 8:50pm; 07/15/2024, 9:32pm) and 1 unit of packed RBC transfusion (07/16/2024, 2:57pm). Patient's Hb level subsequently increased from: cf., Hb 6.7 g/dL (07/16/2024, 1:27pm)(admission). cf., Hb 7.9 g/dL (07/16/2024, 11:39pm). cf., Hb 7.8 g/dL (07/17/2024, 7:41am). cf., Hb 8.4 g/dL (07/17/2024, 3:07pm). cf., Hb 8.3 g/dL (07/18/2024, 6:38am). cf., Hb 8.8 g/dL (07/19/2024, 8:24am). cf., Hb 8.1 g/dL (07/20/2024, 4:27am)(discharge). cf., normal Fe 50 ug/dL, normal TIBC 260 ug/dL (07/18/2024, 6:38am), normal ferritin 365.9 ng/mL (07/18/2024, 2:57pm). Patient did receive iron sucrose 300mg IV x 1 dose (07/19/2024, 10:15am) while in [facility]. Patient will not continue this medication on hospital discharge home on 07/20/2024. Patient also reports that he will follow up with his [facility] regarding outpatient GI Clinic evaluation in regards to EGD screening (for esophageal/gastric varices) and/or colonoscopy screening (for colonic polyps/neoplasm). #Acute hypomagnesemia with admission Mg 1.3 mg/dL (07/16/2024, 2:57pm). cf., Mg 1.7 mg/dL (07/17/2024, 7:41am). cf., Mg 1.1 mg/dL (07/20/2024, 4:27am). cf., Mg 2.2 mg/dL (07/20/2024, 3:14pm). Patient received magnesium sulfate 1g IV q2h x 2 doses (07/16/2024, 4:30pm, 6:30pm) and acute hypomagnesemia improved, only to recur subsequently. Hence, patient received magnesium sulfate 1g IV q2h x 3 doses (07/20/2024, 10:45am) and acute hypomagnesemia RESOLVED, as shown by a discharge Mg 2.2 mg/dL (07/20/2024, 3:14pm). Etiology of acute hypomagnesemia was most probably due to ETOH-mediated magne- uresis. #ETOH - patient quaffs one fifth of scotch every other day - No recent withdrawal sx, last ETOH free period was in the hospital Jan 2024 - AWSS at risk. If signs of withdrawal we will switch to front loaded Valium protocol. - +thiamine/folic acid - Pt is interested in cutting back/stopping ETOH especially knowing it can be contributing to his anemia - No hematochezia/melena, no epigastric pain suggestive of ulceration/gastritis on admit or reassessment Patient is >4 days out from his last drink with no signs of withdrawal sx. Patient does express commitment to quit the miranda and remained sober moving forward. His has removed all alcohol from the house. Did offer to provide and set up with cessation resources, patient reports he is aware of these although has not had to use them personally and has a follow-up plan and good family support which he is comfortable with. Did offer to help facilitate and discuss this plan, Naif reports he has a good plan and is comfortable with it after having extensive discussion with his and declines further resources from provider/CM. #T2DM Last A1c at 6.0% on 06/29/2024 Hold empagliflozin SSI; with target BSG range 110-140mg/dL BSG ACHS Disposition: PCU DNR/DNI DM2 diet VTE PPx: Hold chemical DVT PPx in setting of acute blood loss anemia; SCDs #BPH Patient maintains brisk urine output with flomax 0.4mg PO daily while in [facility]. Patient was subsequently discharged back to his home with this medication on 07/20/2024. To this end, patient's [facility] ([place]) received on 07/20/2024, one electronic prescription for: i. flomax 0.4mg PO daily, #90 tablets, no refills. Discharge time, 35 minutes. Of this time period, 18 minutes were spent in coordinating patient's discharge. Admission HPI Per Admitting Provider Jimenez is a 59-year-old male with PMH of CKD, iron deficiency anemia, HTN, T2DM, and HLD. He presented on 07/16 for generalized weakness, lightheadedness, and di arrhea x 2 week. Patient reports his stool has been liquidy for the past 2 weeks, but he denies any bright red blood in the stool or melena. He also had an episode of nosebleed yesterday that lasted approximately 12 hours. The bleeding started yesterday around 5 PM, and lasted until 5 AM this morning. Patient did not take any additional medications for the bleeding, but did not stuff his nose with cotton balls. Epistaxis came on unsolicited; he denies any trauma, reports he just blew his nose and it started to bleed. No family history of bleeding disorders to his knowledge. Patient took all of his regular morning medicines today; no recent change in medications. He manages his own medicine at home. He takes minocycline for his rosacea, but reports no other antibiotic use. Additional symptoms have included lightheadedness and feeling off balance, and patient reports that he did fall approximately 10 days ago and glanced his head off the end of a table. He does have history of 2 prior blood transfusions: 1 occurred at the [place] 8 to 9 months back, and he is unsure of the cause. Another occurred in January 2024 after he had a routine colonoscopy and polyp removal that led to a lower GI bleed. Patient reports he is not currently on iron supplementation. He was previously on magnesium supplementation BID, but stopped taking it due to ongoing diarrhea. Patient denies smoking or tobacco use. He does endorse alcohol use, reports he had a double scotch last night, and reports he drinks alcohol 1-2 times per week. Patient reports he has had issues with his kidneys for the past 5 to 6 years. He denies any prior history of kidney stones. He reports he is still producing urine. Patient's vitals are stable at time of admission. ED course: NSS 1000 L IV 2u pRBCs ordered for transfusion ROS: Patient endorses generalized fatigue, liquidy diarrhea, lightheadedness, and feeling off balance. Patient denies fever, chills, night sweats, syncope, chest pain, pleuritic CP, cough, SOB, abdominal pain, N/V, BRB in stool, burning with induration, or numbness or tingling in arms or legs. Discharge Exam General: comfortable, coherent, cooperative. Wide awake and alert. Not confused, lethargic, or obtunded. Patient speaks in complete, fluent, and articulate sentences without pause, interruption, cough, or wheeze. HEENT: NC/AT. EOMI, PERRL. No nystagmus, gaze paresis, anisocoria, miosis, mydriasis, hyphema, chemosis, scleral icterus, conjunctivitis, or pterygium. No otorrhea, no rhinorrhea. No pharyngeal discharge or erythema. Neck: Supple, no stridor, bruit, goiter, or hepatojugular reflux. Jugular venous pressure is estimated to be 8 cm above the sternal angle of Jose Daniel, which is typically 5 cm above the level of the right atrium. Hence, there is no jugular venous distention noted on discharge exam 07/20/2024. Lymphatics: No pre-post auricular, anterior/posterior cervical, supraclavicular/infraclavicular, axillary, epitrochlear, or inguinal adenopathy. Chest: Symmetric rise and fall with respirations. Non-tender to palpation. Heart: RRR, S1 and S2 noted. No S3 or S4 summation gallop noted. No tripartite friction rub. Grade II/ early systolic murmur @ LLSB without radiation to the carotids, axilla, or back, and which remains invariant in regards to the respiratory cycle. Lungs: Clear to auscultation and percussion. No audible expiratory wheeze, egophony, pectoriloquy, increase in tactile fremitus, or flatness/dullness to percussion at the bases. Abdomen: Soft, non-tender, non-distended. No rebound, guarding, Parr's sign, or organomegaly. Bowel sounds auscultated in all 4 quadrants. Extremities: No clubbing, cyanosis, or edema. 2+ pedal pulses bilaterally. Skin: No decubitus ulcer, exanthem, or enanthem. Neurology: Alert and oriented in regards to person, place, time, and situation. DTR+ and symmetric. 5/5 motor strength in all 4 extremities, both proximally and distally. No myoclonus, tremors, or tics. Urology: No zuñiga catheter. No urethral discharge. Psychiatry: Appropriate affect. Smiles occasionally. No homicidal/suicidal ideation. Discharge Plan Discharge Items Patient Disposition: Home - Self-Care Reason For Visit: ARF, ACUTE BLOOD LOSS ANEMIA Discharge Diagnosis: acute blood loss anemia Condition on Discharge: Fair Activity: Resume your previous activity Non-emergency contact: Primary Care Provider and Film Laboratory Technician Call non-emergency contact if: you have any medication questions Follow-up/Referrals: Harini Rivera, FARHANA [Primary Care Provider] - Diet: Carb Consistent or DM2, Heart Healthy, Low Fat and Low Sodium (2gm) Addtl Attending Provider Instructions: See your PCP Dr. Nicole Schuler and your new Renal Dr. Baldomero Manuel, both within 7 days of hospital discharge, for routine follow up visits. Pending Studies at Discharge: No Stand-Alone Forms: My Third Age, Smoking Cessation Medications and DC Order Prescriptions: New gabapentin 300 mg Capsule 300 mg PO BID Qty: 60 0RF rosuvastatin 10 mg Tablet 10 mg PO QAM Qty: 30 0RF Continued empagliflozin-metformin 12.5-1,000 mg tablet 1 tab PO BID Qty: 60 3RF tamsulosin 0.4 mg capsule 0.4 mg PO DAILY Qty: 90 3RF multivitamin Tablet 1 tab PO BID omega 5-otd-dnm-fish oil [Fish Oil] 1,200 (144-216) mg Capsule 1 cap PO QAM atenolol 50 mg Tablet 50 mg PO PM minocycline 100 mg Tablet 100 mg PO QAM omeprazole 20 mg Tablet,Delayed Release (Dr/Ec) 20 mg PO QAM Discontinued losartan-hydrochlorothiazide 100-12.5 mg tablet 1 tab PO DAILY gabapentin 300 mg Capsule 300 mg PO TID rosuvastatin 40 mg Tablet 40 mg PO QAM Discharge Orders: Discharge Order (Routine); Ordered 07/20/24 Ordered By: Nasir Giordano Admission Data Admit Date/Time: 07/16/24 16:39 Attending Provider: Nasir Giordano Admit Provider: Garrick Romero Primary Care Provider: Harini Rivera. Other Providers: Garrick Romero; [facility]; Mazin Velazquez; [facility] Hospital Stay Data Consultations 07/16/24 16:24 ED Decision to Admit Stat 07/16/24 17:00 Consult Hematology Routine 07/16/24 17:12 Consult Nephrology Routine Diagnostic Imagining Performed 07/16/24 14:24 CT head/brain wo con Stat 07/16/24 14:37 CT Abd and Pelvis [CT abd pelvis wo con] Stat Pending Results Patient Have Any Pending Studies at Discharge: No Discharge Instructions Given to Patient (Per Discharging Provider) See your PCP Dr. Nicole Schuler and your new Renal DrDave Manuel, both within 7 days of hospital discharge, for routine follow up visits. Supervising Physician Co-Signing Physician Notes Patient seen and examined, chart reviewed, case discussed with Tay Plascencia PA-C and I agree with the assessment and plan as above except as otherwise noted Labs and images reviewed Jimenez Nunez is a 59yo M who presents with weakness, diarrhea, and fatigue x1 week. No melena/hematochezia. Baseline Cr 2.4-2.8, he has acute renal failure nonoliguric with creatinine 7.52 on admission Hgb 6.7. Has not had any GI bleeding, but does report a prolonged period of epistaxis yesterday. He is not on blood thinners. He does have a history of iron deficiency anemia. CT-A/P: bilateral perinephric stranding. Dilated appendix, although low suspicion for acute appendicitis. He does not have a leukocytosis on admission. Lactate 2.5 Troponin normal Bio fire negative UA is pending Suspect patient has prerenal acute renal failure with acute on chronic anemia precipitated with epistaxis. Clinically does not have melena/hematochezia. BUN is elevated in the setting of acute renal failure. Hemoccult all stools and continue monitor for bleeding. Patient previously had post polypectomy GI bleed in 2023. Acute on chronic anemia - Patient is not on any blood thinners. Aspirin is on hold. Transfusion threshold liberalized 8.0 given evidence of end organ ischemia. Pending 1 unit of transfusion, trend H&H Suspect acute renal failure prerenal. UA is pending. Patient has a underlying metabolic acidosis with VBG 7.23,, dioxide 18. Bicarb not currently indicated. Will start with blood product replacement and then supplement with IV FM as indicated. Repeat lactic pending initial transfusion. Patient has received 1 L NSS in the ER. Mag 1.3, repleted Nephrology consulted for acute renal failure. Patient is not anuric. EKG p ending. Patient is not acutely volume overloaded, potassium is the upper range of normal and there is not indication for acute dialysis at this time. Patient does have bicytopenia with concurrent chronic anemia and thrombocytopenia. White count is lower limit of normal. Ferritin is elevated, UIBC is low, and he is not microcytic. His last B12 and folic acid levels were normal. He does have a known of acute blood loss recently but is also been intermittently and chronically anemic since December. Does have CKD. Will add peripheral smear, reticulocyte index if able to be obtained off of pret ransfusion blood, and follow-up with hematology. Severe bicytopenia without chronic bleeding is potentially concerning for MDS/production failure. Otherwise agree with assessment and management as above Total Time Total Time Spent Total Time Spent (In Minutes): 35 minutes Coding Level of Care Code 72540 INP/OBS DISCH >30 MIN Diagnoses Acute renal failure N17.9 Acute blood loss anemia D62 Diarrhea R19.7 Hypomagnesemia E83.42
[2024-07-21 11:57] LABS: Albumin 3.5 g/dL (3.8-4.8); Alpha 1 Globulin 0.3 g/dL (0.2-0.3); Alpha 2 Globulin 0.6 g/dL (0.5-0.9); Beta-1-Globulin 0.3 g/dL (0.4-0.6); Beta-2-Globulin 0.4 g/dL (0.2-0.5); Free Kappa 86.9 mg/L (3.3-19.4); Free Kappa/Lambda Ratio 1.52 (0.26-1.65); Free Lambda 57.3 mg/L (5.7-26.3); Gamma Globulin 0.9 g/dL (0.8-1.7); Monoclonal Protein Band 1 DNR g/dL (NONE DETECTED); Monoclonal Protein Band 2 DNR g/dL (NONE DETECTED); Monoclonal Protein Band 3 DNR g/dL (NONE DETECTED); Total Protein 5.9 g/dL (6.1-8.1)
== END 2024-07-20 17:05 | disposition home or self-care (01) | DRG 683 ==
LOC: SUATTDRO → ED 12:12 → 2S 16:39 → SUATTDRO 16:39 → 2S 17:45